=== PATIENT | female | born 1980 | race Caucasian/White ===

== ENCOUNTER 2019-06-30 13:59 | Emergency (ER) | payer MEDICAID, SELFPAY ==
[2019-06-30 14:00] VITALS: BP 106/74; PULSE 105; RESP 16; TEMP 37.4; O2SAT 95; BMI 37.0
--- NOTE | 2019-06-30 14:23 | EKG12_ITS ---
Test Reason : Blood Pressure : / mmHG Vent. Rate : 099 BPM Atrial Rate : 099 BPM P-R Int : 158 ms QRS Dur : 078 ms QT Int : 356 ms P-R-T Axes : 079 089 075 degrees QTc Int : 456 ms Normal sinus rhythm Normal ECG Confirmed by CAMRYN HODGES ([id number]), editor producer HERBERT HUMPHREY ([id number]) on 07/03/2019 3:09:03 PM Referred By: PATEL Confirmed By:CAMRYN HODGES
--- NOTE | 2019-06-30 14:23 | RAD_ITS ---
STUDY: X-RAY CHEST REASON FOR EXAM: Female, 39 years old. Chest pain x today TECHNIQUE: PA and lateral views of the chest. COMPARISON: None. FINDINGS: EKG electrodes are seen. A fine linear densities seen projected over the left hilum. The lungs are clear and expanded. There is no demonstrated pleural abnormality. Normal size heart. Normal mediastinum and jama. Normal visualized pulmonary arteries. Normal visualized aortic arch and descending thoracic aorta. There is a mild dextroscoliosis of the thoracic spine. Normal visualized ribs, clavicles, and shoulders. There is no demonstrated abnormality of the visualized soft tissue structures of the upper abdomen. RAD/Chest PA and Lateral IMPRESSION: No acute abnormality is seen. Electronically Signed: Azar Fox, at 14:53 EDT , Service support ,
[2019-06-30 14:36] LABS: Absolute Neutrophil Count 8.2 X10^3/uL (2.0-7.7); Basophil# 0.05 X10^3/uL; Basophil% 0.4 % (0-1); Eosinophil# 0.28 X10^3/uL; Eosinophils% 2.2 % (0-5); Hematocrit 35.6 % (37-47); Hemoglobin 11.6 g/dL (12.0-15.0); Lymphocyte % 24.8 % (19-41); Mean Corp Hgb Conc 32.6 g/dL (32-36); Mean Platelet Vol. 10.1 fl (6.2-12.0); Monocyte# 0.82 X10^3/uL; Monocyte% 6.5 % (0-10); NRBC Flagged by Analyzer 0 % (0-5); Neutrophil # 8.23 X10^3/uL (2.7-7.7); Neutrophil % 65.8 % (47-70); Platelet Count 309 K/mm3 (150-450); RBC Distribution Width CV 13.1 % (11.6-14.6); RBC Distribution Width SD 42.8 fl (35.1-43.9); White Blood Count 12.5 K/mm3 (4.4-11.0)
[2019-06-30 14:49] LABS: Anion Gap 4 (5-15); BUN 16 mg/dL (7-18); BUN/Creat Ratio 28.1 RATIO (10-20); Calcium,Total 8.5 mg/dL (8.5-10.1); Chloride 113 mmol/L (98-107); Creatinine, Serum 0.57 mg/dL (0.55-1.02); EST Glomerular Filtration Rate 125 mL/min (>60); Est Glom Filt Rate - Afr Amer 151 mL/min (>60); Estimated Creatinine Clearance 113.29 ml/min; Glucose 110 mg/dL (74-106); Sodium Level 144 mmol/L (136-145)
[2019-06-30 14:59] VITALS: BP 101/75; PULSE 99; RESP 21; O2SAT 98
[2019-06-30] MEDS: Aspirin 81 MG TAB.CHEW 324 MG PO (15:15)
--- NOTE | 2019-06-30 15:24 | ED.DCSUM_ITS ---
History of Present Illness Chief Complaint: Chest Pain Informant: Patient Narrative: Patient presenting for evaluation secondary to chest pain. Patient reports that over the course about the last month she has been dealing with intermittent chest pain. Patient states that it will come and go throughout the day, is a sharp tearing type sensation and seems to get worse when she changes position. Patient denies any numbness or weakness in the arms or legs. She denies any shortness of breath lightheadedness or palpitations. No injuries associated with this. She is never really had any prior episodes in the past, she denies that she has a personal or family history of aneurysm or sudden . No family history of premature cardiac disease. Patient denies any history of hypertension diabetes hyperlipidemia or any DVT or PE risk factors. She is a smoker she is never had a cardiac stress test. Past Medical History - Allergies and Home Meds Allergies/Adverse Reactions: Allergies No Known Allergies Allergy (Verified 06/30/19 14:04) Past Medical History: None Smoking Status: Current every day smoker Review of Systems All systems negative except as indicated General: Denies: Chills, Fever, Sweats Eyes: Denies: Visual changes - bilaterally, Diplopia ENT: Denies: Rhinorrhea, Sore throat Cardiovascular: Reports: Chest pain Respiratory: Denies: Dyspnea, Cough, Dyspnea on exertion Gastrointestinal: Denies: Abdominal pain, Nausea, Vomiting, Diarrhea, Melena, Hematochezia Genitourinary: Denies: Dysuria, Hematuria, Frequency Musculoskeletal: Denies: Back pain, Extremity Pain Skin: Denies: Rash, Wounds Neurological: Denies: Headache, Weakness, Numbness Physical Exam Vital Signs/Narrative: Vital Signs Temp Pulse Resp BP Pulse Ox 06/30/19 14:59 99 21 H 101/75 98 06/30/19 14:00 99.4 F H 105 H 16 106/74 95 Inital Vital Signs reviewed: Yes General: Well nourished, Well developed, No Acute Distress Head: Normocephalic, Atraumatic Eyes: Perrl, EOMI ENT: Moist mucous membranes, No rhinorrhea Neck: Supple, Nontender Cardiovascular: Regular rate, Regular rhythm, No murmurs Respiratory: No distress, CTA bilaterally, Chest nontender Abdomen: Soft, Nontender, Nondistended, Normal bowel sounds Back: Nontender, Normal Inspection Extremities: Nontender, No edema, - - 2+ radial pulses bilaterally symmetric. 2+ PT pulses bilaterally symmetric. Skin: Normal color, No rash Neurological: Alert, Oriented x3, Cranial nerves II-XII grossly intact, Normal Strength, Normal Sensation Psychological: Normal affect, Normal Mood Diagnostic/Tx/Re-eval Clinical Impression(s) from Imaging Studies Chest X-Ray 06/30/19 14:23 IMPRESSION: No acute abnormality is seen. Electronically Signed: Azar Fox, at 14:53 EDT , Service support , Laboratory Data 06/30/19 06/30/19 14:05 14:05 WBC 12.5 H RBC 4.00 L Hgb 11.6 L Hct 35.6 L MCV 89.0 MCH 29.0 MCHC 32.6 RDW Std Deviation 42.8 RDW Coeff of Jenni 13.1 Plt Count 309 MPV 10.1 Immature Gran % (Auto) 0.300 Neut % (Auto) 65.8 Lymph % (Auto) 24.8 Carolina % (Auto) 6.5 Eos % (Auto) 2.2 Baso % (Auto) 0.4 Absolute Neuts (auto) 8.2 H Absolute Lymphs (auto) 3.10 Nucleated RBC % 0 Sodium 144 Potassium 4.0 Chloride 113 H Carbon Dioxide 27.0 Anion Gap 4 L BUN 16 Creatinine 0.57 Estim Creat Clear Calc 113.29 Est GFR (MDRD) Af Amer 151 Est GFR (MDRD) Non-Af 125 BUN/Creatinine Ratio 28.1 H Glucose 110 H Calcium 8.5 Troponin I < 0.015 - EKG Initial EKG Interpretation: - - Sinus rhythm at [address] segments normal T waves normal AK and QTc intervals no evidence of WPW or Brugada morphology no acute ischemia or arrhythmia - Medical Decision Making Patient presented secondary to chest pain. Differential considerations included but are not limited to cardiac disease, aortic dissection, aneurysm, PE, pneumonia. Work-up including CBC chemistry troponin chest x-ray and EKG are all found to be unremarkable. Patient's pain is very intermittent and has been going on for a month it seems unlikely that this is from dissection or from aneurysm I do not feel that any advanced imaging is indicated. Patient is PER C- there is no indication for work-up for PE. Patient's heart score is 2 at a maximum and she does not require further admission for this. Patient's pain likely is musculoskeletal she will be treated with NSAIDs she will follow-up with primary care on the at her previously scheduled appointment. ED Disposition - Plan for ED Patient: Disposition: Home or Assisted Living Diagnosis: Musculoskeletal chest pain Instructions: ED Chest Pain NonCardiac Prescriptions: Naproxen [Naprosyn] 500 mg PO BID PRN #20 tab Prescription Printed Referrals: Jessica Keller [NON-STAFF] - 1 Week
[2019-06-30 15:41] VITALS: BP 101/75; PULSE 88; RESP 16; O2SAT 100
--- NOTE | 2019-06-30 15:41 | ED.RN ---
IV DC'ED, CATHETER INTACT, SMALL GAUZE DRESSING PLACED. DISCHARGE INSTRUCTIONS GIVEN TO AND REVIEWED WITH PATIENT, PATIENT DENIES QUESTIONS OR CONCERNS AND VOICES UNDERSTANDING OF DISCHARGE INSTRUCTIONS. PT AMBULATES OUT OF ROOM WITHOUT DIFFICULTY.
== END 2019-06-30 15:42 | disposition home or self-care (01) ==
LOC: ED 15:29
PROVIDERS: Emergency Provider Emergency Medicine; PCP Nurse Practitioner Family
DX: R07.89 Other chest pain (principal); F17.200 Nicotine dependence, unspecified, uncomplicated
CPT/HCPCS: 71046; 80048; 84484; 85025; 93005; 99285; A4216

== ENCOUNTER → 2019-07-11 10:43 | Outpatient (CLI) | payer MEDICAID, SELFPAY ==
[2019-06-30 14:00] VITALS: BMI 37.0
--- NOTE | 2019-07-11 10:49 | BI_ITS ---
MAMMOGRAPHY - BILATERAL SCREENING REASON FOR EXAM: Female, 39 years old. Routine annual screening examination. PERTINENT HISTORY: Aunts with breast cancer. TECHNIQUE: Digital bilateral breast ken (3D mammographic acquisition) in the CC and MLO projections. 2-D mediolateral oblique (MLO) and craniocaudad (CC) views of both breasts were obtained. CAD: Full Field Digital Mammography with Computer Added Detection was performed. COMPARISON: No comparison mammograms available at this time. If any prior films become available, an addendum to this report can be generated. FINDINGS: Breast Composition: The breasts are heterogeneously dense, which may obscure small masses. There are no dominant masses or suspicious calcifications. Small benign-appearing bilateral axillary lymph nodes. No other significant abnormalities are identified. BI/SCREEN MAMM (CAD) W/KEN BILAT IMPRESSION: Negative screening mammogram. Yearly followup mammogram recommended. (A) ASSESSMENT CATEGORY: BIRADS Category 2: Benign. A letter regarding these results will be sent to the patient by the facility within 30 days. Approximately 10% of breast cancers are not detected by mammography. A normal mammogram should not delay biopsy of a clinically suspicious abnormality. [id number] Electronically Signed: Azar Fox, at 14:52 EDT , Service support ,
== END ==
DX: Z12.31 Encounter for screening mammogram for malignant neoplasm of breast (principal)
CPT/HCPCS: 77063; 77067

== ENCOUNTER 2019-09-13 19:34 | Emergency (ER) | payer MEDICAID, SELFPAY ==
[2019-09-13 19:36] VITALS: BP 101/68; PULSE 93; RESP 17; TEMP 36.3; O2SAT 97; BMI 39.5
--- NOTE | 2019-09-13 20:30 | ED.VIS.GEN ---
History of Present Illness Chief Complaint: Cough Informant: Patient Onset: Weeks Context: Gradual Onset Timing: Waxes and wanes - 2 weeks Current Severity: Mild Maximum Severity: Moderate Narrative: Patient presents with right ear fullness and congestion along with cough for the past 2 weeks. She denies fever or chills. She is not coughing anything up. She does report having a bad tooth. - Past Medical History (1) Depression Status: Chronic Past Medical History - Allergies and Home Meds Allergies/Adverse Reactions: Allergies No Known Allergies Allergy (Verified 09/13/19 19:34) Primary Care Physician: Jessica Kumar [Primary Care Provider] - Prior records reviewed: Yes Smoking Status: Current every day smoker Review of Systems General: Denies: Chills, Fever Eyes: Denies: Visual changes - bilaterally ENT: Reports: Bilateral ear pain, Right ear pain Cardiovascular: Denies: Chest pain Respiratory: Reports: Cough. Denies: Dyspnea, Sputum Gastrointestinal: Denies: Abdominal pain, Nausea, Vomiting, Diarrhea Skin: Denies: Rash Neurological: Denies: Headache Hematologic: Denies: Easy bruising, Easy bleeding Allergy: Denies: Uticaria Physical Exam Vital Signs/Narrative: Vital Signs Temp Pulse Resp BP Pulse Ox 09/13/19 19:36 97.3 F L 93 17 101/68 97 Inital Vital Signs reviewed: Yes General: Well nourished, Well developed Head: Normocephalic ENT: Moist mucous membranes, TM's clear, - - Right maxillary second molar is broken with mild surrounding gum edema.. Negative for: Sinus tenderness Neck: Supple Cardiovascular: Regular rate, Regular rhythm Respiratory: No distress, CTA bilaterally Abdomen: Soft, Nontender Extremities: Nontender Skin: Normal color Neurological: Alert, Oriented x3 Psychological: Normal affect Diagnostic/Tx/Re-eval 2 view chest x-ray per my review reveals no focal infiltrate. - Medical Decision Making Patient will be treated with Alfredo-[facility] K for her dental infection. A list of dental clinics in the area is provided for her. ED Disposition - Plan for ED Patient: Disposition: Home or Assisted Living Diagnosis: Odontalgia Instructions: ED Tooth Pain Prescriptions: Penicillin V Potassium 500 mg PO 4X/DAY #40 tab Transmission Status: Pending to [facility] [place] - [id number] Referrals: Jessica Kumar [Primary Care Provider] - As Needed Additional Instructions: Dental list provided.
--- NOTE | 2019-09-13 21:05 | RAD_ITS ---
STUDY: CHEST, 2 VIEWS REASON FOR EXAM: Fever and cough, old. TECHNIQUE: PA and lateral views COMPARISON: 06/30/2019 FINDINGS: The lungs are clear and expanded. There is no demonstrated pleural abnormality. Normal size heart. Normal mediastinum and jama. Normal visualized pulmonary arteries. Normal visualized aortic arch and descending thoracic aorta. There is a mild dextroscoliosis of the thoracic spine. Normal visualized ribs, clavicles, and shoulders. There is no demonstrated abnormality of the visualized soft tissue structures of the upper abdomen. RAD/Chest PA and Lateral IMPRESSION: No acute pulmonary process, no interval change Electronically Signed: Daniel Morales MD at 21:46 EDT , Service support ,
[2019-09-13] MEDS: Penicillin Vk 250 MG Tablet 500 MG PO (21:42)
[2019-09-13 21:43] VITALS: BP 110/72; PULSE 76; RESP 16; O2SAT 97
== END 2019-09-13 21:44 | disposition home or self-care (01) ==
PROVIDERS: Emergency Provider Emergency Medicine
DX: K08.89 Other specified disorders of teeth and supporting structures (principal); F17.200 Nicotine dependence, unspecified, uncomplicated; F32.9 Major depressive disorder, single episode, unspecified
CPT/HCPCS: 71046; 99282

== ENCOUNTER → 2019-09-15 13:51 | Outpatient (CLI) | payer MEDICAID, SELFPAY ==
[2019-09-13 19:36] VITALS: BMI 39.5
--- NOTE | 2019-09-15 13:54 | RAD_ITS ---
STUDY: X-RAY - RIGHT KNEE REASON FOR EXAM: Female, 39 years old. RIGHT KNEE PAIN x1 YR, NKI TECHNIQUE: 3 view(s) of the knee. COMPARISON: None. FINDINGS: Normal visualized distal femur. Normal visualized proximal tibia and fibula. Normal proximal tibiofibular articulation. Normal medial femorotibial compartment. Normal lateral femorotibial compartment. Normal patellofemoral articulation. The soft tissue structures are unremarkable. RAD/Knee 3 Views IMPRESSION: Normal x-ray examination of the knee. Electronically Signed: Daniel Morales MD at 14:16 EDT , Service support ,
== END ==
DX: M25.561 Pain in right knee (principal)
CPT/HCPCS: 73562

== ENCOUNTER 2019-09-29 20:33 | Emergency (ER) | payer MEDICAID, SELFPAY ==
[2019-09-29 20:35] VITALS: BP 104/70; PULSE 88; RESP 16; TEMP 36.4; O2SAT 97; BMI 38.9
--- NOTE | 2019-09-29 21:24 | ED.DCSUM_ITS ---
History of Present Illness Chief Complaint: Lower Extremity Injury Informant: Patient Occurred: Days - 2 Mechanism/Context: Fall - slipped in wet grass, fell to both knees Context: Sudden Onset Timing: Continuous Quality of Pain: Aching Location: lateral right knee, and into popliteal area/calf Current Severity: Mild Maximum Severity: Severe Worsened by: walking, bending knee Relieved by: remaining still Associated Symptoms: Negative for: Parasthesia, Weakness, Loss of Funtion Narrative: Patient has been able to walk. She states she fell to both of her knees, the left one does not hurt anymore, but the right one has been persistent. She denies any other injuries. - Past Medical History (1) Depression Status: Chronic Past Medical History - Allergies and Home Meds Allergies/Adverse Reactions: Allergies No Known Allergies Allergy (Verified 09/29/19 20:36) Primary Care Physician: Jessica Kumar [Primary Care Provider] - Lives: Roommate Smoking Status: Current every day smoker Review of Systems General: Denies: Chills, Fever, Sweats Musculoskeletal: Reports: Extremity Pain. Denies: Neck pain, Back pain, Swe lling Neurological: Denies: Weakness, Parasthesia, Numbness Physical Exam Vital Signs/Narrative: Vital Signs Temp Pulse Resp BP Pulse Ox 09/29/19 20:35 97.5 F L 88 16 104/70 97 Inital Vital Signs reviewed: Yes - Extremity Exam Right Knee: Limited ROM - At extremes of flexion. Extensor mechanism intact. All ligaments stable with short endpoints and no significant pain on stressing including negative Yudi and posterior drawer. She is diffusely tender throughout the knee, except not on the patella. This includes the medial joint line, lateral joint line, tibial tuberosity, patellar ligament. Left Knee: Negative for: Contusion, Limited ROM General: Well nourished, Well developed, Obese, - - NAD Head: Normocephalic, Atraumatic Skin: Normal color, No rash, No Trauma - skin intact RLE Neurological: Alert, Oriented x3, Cranial nerves II-XII grossly intact, Normal Strength, Normal Sensation, Normal Gait Psychological: Normal affect, Normal Mood Diagnostic/Tx/Re-eval - Medical Decision Making My interpretation, 4 view x-ray series of the right knee shows no acute fracture or major effusion. Patient is reassured, given Gerardo wrap, naproxen as well as a prescription, and advised to follow-up with orthopedics if after a week of rest, ice, elevation, and NSAIDs, she is still having issues with it. She is comfortable with that plan. ED Disposition - Plan for ED Patient: Disposition: Home or Assisted Living Diagnosis: Right knee injury Instructions: ED Sprain Knee, ED Bandage Elastic Wrap Prescriptions: Naproxen [Naprosyn] 500 mg PO BID PRN #20 tab Prescription Printed Referrals: Tejinder Yoon DO [STAFF PHYSICIAN] - 1 Week if not improving
--- NOTE | 2019-09-29 21:56 | RAD_ITS ---
HISTORY: FELL 2-3 DAYS AGO. COMPLAINING OF RIGHT KNEE PAIN. ADDITIONAL HISTORY: None provided. EXAMINATION/TECHNIQUE: XR Knee Complete 4 Views or More Right Number of images including paperwork: 4 COMPARISON: 09/15/2019 FINDINGS: BONES: No acute fracture. JOINTS: No subluxation. Small right knee joint effusion. SOFT TISSUES: No distinct foreign body. Soft tissue calcifications noted anteromedially. RAD/Knee 4 or More Views IMPRESSION: No acute osseous abnormality. Small right knee joint effusion. at 2225 Reported and signed by: Rekha Lunsford MD Electronically Signed: Rekha Lunsford MD at 22:25 EDT Tel , Service support ,
[2019-09-29] MEDS: Naproxen 500 MG Tablet PO (22:34)
== END 2019-09-29 22:34 | disposition home or self-care (01) ==
PROVIDERS: Emergency Provider Emergency Medicine; Referring Provider Nurse Practitioner Family
DX: S89.91XA Unspecified injury of right lower leg, initial encounter (principal); F17.200 Nicotine dependence, unspecified, uncomplicated; F32.9 Major depressive disorder, single episode, unspecified; W01.0XXA Fall on same level from slipping, tripping and stumbling without subsequent striking against object, initial encounter
CPT/HCPCS: 73564; 99283

== ENCOUNTER → 2020-01-08 16:46 | Outpatient (CLI) | payer MEDICAID, SELFPAY ==
[2019-10-20 10:22] VITALS: BMI 38.9
--- NOTE | 2020-01-08 16:47 | MRI_ITS ---
HISTORY: Right knee injury. Internal derangement. Swelling and instability MRI EXAMINATION OF THERight KNEE COMPARISON: Radiographs of the right on September 29, 2019 TECHNIQUE: Sagittal proton density, fat-suppressed T2, coronal proton-density 8. Thin coronal T2 views, coronal fat-suppressed proton density and axial fat-suppressed T2 # of images including paperwork:199 FINDINGS: Bones: No acute fracture. No significant marrow edema. Ligaments and tendons: The anterior and posterior cruciate ligaments are intact The iliotibial band, lateral collateral ligament and biceps femoris tendon are intact The medial collateral ligament is intact The popliteus tendon appears intact Extensor mechanism: The quadriceps tendon and the patellar tendon and medial and lateral retinaculum are intact Knee joint: Small joint effusion. There is also a small popliteal cyst and fluid within the semimembranosus tibial collateral ligament bursa. Medial compartment: No evidence of a meniscal tear. There is fraying of the articular cartilage at the lateral weightbearing portion medial femoral condyle seen on coronal image 14 series 9 extending approximately 6 mm transverse and approximately 3 mm AP seen on sagittal image 16 series 6 Lateral compartment: there may be a tiny radial tear at the free edge seen on sagittal image 9 and coronal image 16 series 9. Addition there is abnormal signal is seen extending from the anterior root ligament attachment to middle one third. Suspect intrameniscal cyst seen on sagittal image 4 series 6 in this region. I suspect there is a small vertical component extending to the inferior articular surface and is seen on coronal image 14 series 9. Patellofemoral articulation: There is lateral patellar subluxation of approximately 6 mm. Narrowing of the lateral patellofemoral joint with minimal fraying of the central lateral articular cartilage of the patella the trochlear articular cartilage is fissured at the sulcus seen on image 15 series 30. The articular cartilage is intact MRI/Lower Ext Joint Only (Routine) IMPRESSION: Lateral meniscus tear involving the middle one third of the lateral meniscus with intrameniscal cyst as discussed. There is also a small radial tear at the free edge of the middle one third. Articular cartilage loss is seen involving the lateral aspect weightbearing portion of the medial femoral condyle Lateral patellar subluxation and narrowing of the lateral patellofemoral joint with articular fraying and fissuring as discussed Small joint effusion Small popliteal cyst Small amount of fluid within the semimembranosus tibial collateral ligament bursa at 2327 Reported and signed by: Anna Vallejo DO Electronically Signed: Anna Vallejo DO at 23:26 EST Tel , Service support ,
== END ==
PROVIDERS: Referring Provider Orthopaedic Surgery; Visit Provider Orthopaedic Surgery
DX: S83.281A Other tear of lateral meniscus, current injury, right knee, initial encounter (principal); M23.91 Unspecified internal derangement of right knee
CPT/HCPCS: 73721

== ENCOUNTER → 2020-01-19 11:00 | Outpatient (CLI) | payer MEDICAID, SELFPAY ==
[2019-10-20 10:22] VITALS: BMI 38.9
== END ==
PROVIDERS: Referring Provider Orthopaedic Surgery; Visit Provider Orthopaedic Surgery
DX: Z20.828 Contact with and (suspected) exposure to other viral communicable diseases (principal)
CPT/HCPCS: 87426; C9803

== ENCOUNTER 2020-10-12 18:51 | Emergency (ER) | payer MEDICAID, SELFPAY ==
[2019-10-20 10:22] VITALS: BMI 38.9
[2020-10-12 18:52] VITALS: BP 134/94; PULSE 81; RESP 18; TEMP 36.7; O2SAT 100; BMI 34.8
--- NOTE | 2020-10-12 19:38 | EDS_ITS ---
HPI HPI - Female History of Present Illness Chief Complaint: Female C/O Informant: patient Narrative Narrative: 10 days foul smelling vaginal discharge. No bleeding. Missed her last menstrual period supposed be 7 days ago. Sexually active with her significant other last time was 3 weeks ago. STD when she was 12. No fevers. No abdominal pain. States she had last Pap smear this past June at [facility]. Prior similar symptoms: Yes PFSH PFSH Medical History Anxiety Hx of hepatitis C Home Medications fluoxetine 20 mg PO DAILY 09/13/19 [History Last Taken Unknown] quetiapine 50 mg PO QHS 09/13/19 [History Last Taken Unknown] metronidazole [Flagyl] 500 mg PO Q12H #13 tab 10/12/20 [Rx Last Taken Unknown] Allergy/AdvReac Type Severity Reaction Status Date / Time No Known Allergies Allergy Verified 10/12/20 18:55 Social History Smoking Status: Current every day smoker tobacco type: cigarettes ROS ROS ED Constitutional Constitutional ED: Denies chills, fever(s) or sweats Eyes Eyes: Denies change in vision ENT ENT ED: Denies dysphagia or sore throat Cardiovascular Cardiovascular: Denies chest pain, leg edema, palpitations or racing heartbeat Respiratory/Chest Respiratory/Chest: Denies cough, dyspnea or dyspnea on exertion Gastrointestinal Gastrointestinal: Denies abdominal pain, diarrhea, nausea or vomiting Genitourinary Genitourinary ED: Reports other Details: Vaginal discharge ; Denies dysuria, hematuria or urinary frequency Musculoskeletal Musculoskeletal: Denies back pain, extremity pain or neck pain Integumentary Denies rash or wounds Neurologic Neurologic: Denies headache(s), paresthesias or weakness EXAM Physical Exam Const Vital Signs: 10/12/20 18:52 Temperature 98.1 F Temperature Source Temporal Pulse Rate 81 Respiratory Rate 18 Blood Pressure 134/94 H Blood Pressure Mean 107 Pulse Ox 100 Oxygen Delivery Method Room Air Positive well nourished and well developed General Appearance ED: well developed and NAD HEENT Reports moist mucous membranes normocephalic and atraumatic Eyes PERRL, EOMs intact bilaterally and conjunctivae normal General Eye ED: Yes normal appearance of both eyes Neck no lymphadenopathy and supple General: Negative for tenderness Chest Wall Chest: Negative for tenderness Resp normal respiratory effort and normal air movement Effort and Inspection: symmetric chest movement; Negative for respiratory distress Cardio regular rate, regular rhythm and no murmurs Peripheral Pulses: pulses 2+ throughout GI normal to inspection, nondistended, normoactive bowel sounds and non-tender Palpation: Negative for guarding or rebound tenderness present Narrative: Nursing present normal external exam. Speculum exam notes white discharge. There is no bleeding. Back/Spine no CVA tenderness and no thoracic nor lumbar tenderness Extremity normal to inspection General Extremety ED: Negative for edema or tenderness General Extremity: Negative for edema Neuro oriented x3 and no sensory deficits noted Sensorium / Orientation: awake and alert Skin no rashes or lesions noted and no wounds MDM MDM MDM Narrative Medical decision making narrative: Vitals stable nontoxic nontender abdomen. Wet prep negative for Trichomonas. GC chlamydia also returned negative. hCG negative. Will start Flagyl for coverage for concern for bacterial vaginosis. Patient will avoid alcohol products. All questions were answered.. Lab Data Attestation: I reviewed the patient's lab results. Labs: Laboratory Results - last 24 hr 10/12/20 10/12/20 19:49 19:49 Urine Test Negative Chlam trachomat DNA PCR Negative N.gonorrhoeae DNA (PCR) Negative Discharge Plan Triage Chief Complaint: Female C/O ED Provider: Julian Wolf Dx/Rx/DC Orders Clinical Impression: Bacterial vaginosis Instructions: Bacterial Vaginosis Prescriptions: New metronidazole [Flagyl] 500 mg tablet 500 mg PO Q12H Qty: 13 RF: 0 No Action fluoxetine 20 MG capsule 20 mg PO DAILY RF: 0 quetiapine 50 MG tablet 50 mg PO QHS RF: 0 Primary Care Provider: Sonam Martinez Referrals: Sonam Martinez, [employer] [Primary Care Provider] - 1 Week Disposition Disposition: Home, Self Care
[2020-10-12 20:01] LABS: Internal QC Validated? YES +Cl - CLEAR BKGD; Pregnancy, Urine Negative Negative
[2020-10-12 21:42] LABS: Chlamydia Trachomatis by PCR Negative (Negative); Neisserai gonorrhoeae by PCR Negative (Negative); Probe Check PASS; Sample Adequacy Control PASS; Specimen Processing Control PASS
[2020-10-12 22:34] VITALS: BP 137/99; PULSE 95; RESP 15; O2SAT 98
[2020-10-12] MEDS: metroNIDAZOLE 500 MG Tablet PO (22:41)
[2020-10-12 22:47] VITALS: BP 132/82; PULSE 79; RESP 15; O2SAT 99
== END 2020-10-12 22:48 | disposition home or self-care (01) ==
PROVIDERS: Emergency Provider Emergency Medicine; PCP Nurse Practitioner Adult Health
DX: N76.0 Acute vaginitis (principal); B96.89 Other specified bacterial agents as the cause of diseases classified elsewhere; Z86.19 Personal history of other infectious and parasitic diseases; F41.9 Anxiety disorder, unspecified; Z79.899 Other long term (current) drug therapy; F17.210 Nicotine dependence, cigarettes, uncomplicated
CPT/HCPCS: 81025; 87210; 87491; 87591; 99283

== ENCOUNTER → 2021-01-03 13:26 | Outpatient (CLI) | payer MEDICAID, SELFPAY ==
[2021-01-03 14:24] LABS: Absolute Lymphocyte Count 2.85 X10^3/uL (0.83-4.51); Absolute Neutrophil Count 9.1 X10^3/uL (2.0-7.7); Basophil# 0.05 X10^3/uL; Basophil% 0.4 % (0-1); Eosinophil# 0.27 X10^3/uL; Eosinophils% 2.1 % (0-5); Hemoglobin 12.9 g/dL (12.0-15.0); Lymphocyte # 2.85 X10^3/ul (0.83-4.51); Lymphocyte % 22.1 % (19-41); Mean Corp Hgb Conc 33.1 g/dL (32-36); Mean Corpuscular Hgb 29.3 pg (27.0-32.0); Mean Corpuscular Volume 88.6 fL (81-99); Mean Platelet Vol. 10.1 fl (6.2-12.0); Monocyte# 0.58 X10^3/uL; Monocyte% 4.5 % (0-10); NRBC Flagged by Analyzer 0 % (0-5); Neutrophil # 9.11 X10^3/uL (2.7-7.7); Neutrophil % 70.6 % (47-70); Platelet Count 323 K/mm3 (150-450); RBC Distribution Width CV 12.9 % (11.6-14.6); RBC Distribution Width SD 42.4 fl (35.1-43.9); White Blood Count 12.9 K/mm3 (4.4-11.0)
[2021-01-03 14:58] LABS: AST(SGOT) 18 U/L (15-37); Alanine Aminotransfer ALT/SGPT 22 U/L (13-56); Albumin, Serum 3.6 g/dL (3.2-5.0); Alkaline Phosphatase 90 U/L (45-117); Anion Gap 5 (5-15); BUN 11 mg/dL (7-18); Calcium,Total 9.2 mg/dL (8.5-10.1); Chloride 104 mmol/L (98-107); Cholesterol 155 mg/dL (200); Creatinine, Serum 0.65 mg/dL (0.55-1.02); EST Glomerular Filtration Rate 107 mL/min (>60); Est Glom Filt Rate - Afr Amer 129 mL/min (>60); Globulin 3.5 g/dL (2.2-4.2); Glucose 98 mg/dL (74-106); High Density Lipoprotein 73 mg/dL; Potassium 4.2 mmol/L (3.5-5.1); Protein, Total 7.1 g/dL (6.4-8.2); Sodium Level 136 mmol/L (136-145); Triglycerides 74 mg/dL; Very Low Density Lipoprotein 15 mg/dL (5-40)
[2021-01-03 15:16] LABS: HIV - WCH Non-Reactive (Nonreactive); Syphilis Antibodies Non-reactive
== END ==
PROVIDERS: PCP Nurse Practitioner Adult Health; Visit Provider Nurse Practitioner Adult Health
DX: F31.9 Bipolar disorder, unspecified (principal)
CPT/HCPCS: 36415; 80053; 80061; 84443; 85025; 86703; 86780

== ENCOUNTER 2021-01-23 16:12 | Emergency (ER) | payer MEDICAID, SELFPAY ==
[2021-01-23 16:13] VITALS: BP 121/87; PULSE 110; RESP 16; TEMP 36.2; O2SAT 97; BMI 37.8
--- NOTE | 2021-01-23 16:33 | EX.ED.UPPERE ---
HPI History of Present Illness Chief Complaint: Upper Extremity Injury Narrative Narrative: Patient presents with right forearm pain for couple days. She woke up with this pain. She was not sleeping on the arm. Nothing seemed to bring this on. No new activities, jobs, workouts. No injuries. No injections or procedures to the area. She never had this before. Pain is worse with movement. Pain is severe at its most intense. Better with rest. Concern for swelling to the area. No other associated symptoms. PFSH PFSH Medical History Anxiety Hx of hepatitis C Home Medications fluoxetine 20 mg PO DAILY 09/13/19 [History Last Taken Unknown] quetiapine 50 mg PO QHS 09/13/19 [History Last Taken Unknown] metronidazole [Flagyl] 500 mg PO Q12H #13 tab 10/12/20 [Rx Last Taken Unknown] Allergy/AdvReac Type Severity Reaction Status Date / Time No Known Allergies Allergy Verified 01/23/21 16:14 Social History Smoking Status: Current every day smoker tobacco type: cigarettes ROS ROS ED Constitutional Constitutional ED: Denies fever(s) or subjective Eyes Eyes: Denies change in vision ENT ENT ED: Denies ear pain Cardiovascular Cardiovascular: Denies chest pain, palpitations or racing heartbeat Respiratory/Chest Respiratory/Chest: Denies cough or dyspnea Gastrointestinal Gastrointestinal: Denies abdominal pain Genitourinary Genitourinary ED: Denies dysuria Musculoskeletal Musculoskeletal: Reports myalgias; Denies back pain or neck pain Integumentary Denies abscess, Abrasions or rash Neurologic Neurologic: Denies headache(s), paresthesias or weakness Psychiatric Psychiatric: Denies depression Endocrine Endocrinology: Denies polyuria Hematologic/Lymphatic Hematologic/Lymphatic: Denies easy bleeding or easy bruising Allergic/Immunologic Allergic/Immunologic ED: Denies urticaria EXAM Physical Exam Const Vital Signs: 01/23/21 16:13 Temperature 97.2 F L Temperature Source Temporal Pulse Rate 110 H Respiratory Rate 16 Blood Pressure 121/87 H Blood Pressure Mean 98 Pulse Ox 97 Oxygen Delivery Method Room Air Positive well nourished and well developed General Appearance ED: well developed HEENT normocephalic and atraumatic Eyes PERRL Neck full ROM and supple Resp normal respiratory effort Extremity normal to inspection and full ROM Extremity Narrative: Right forearm shows pain over the brachial radialis with palpation. Compartments are soft. Range of motion is intact. Normal movement. No paresthesias noted. Pulses strong and equal. Capillary refill normal. Overlying skin normal. Neuro oriented x3, no focal motor deficits and no sensory deficits noted Sensorium / Orientation: alert Psych mental status grossly normal Skin Lesions: no lesions Rashes: no rashes Trauma: no lacerations or abrasions MDM MDM MDM Narrative Medical decision making narrative: Patient has muscle pain. There is nothing to suggest compartment syndrome, infection. She is neurovascular intact distally. X-rays are unremarkable. Skin appears normal. We will treat this symptomatically. Sling as needed. Precautions regarding sling use were given. Use only for pain as needed. Try to limit the use. Use anti-inflammatories. Rest, ice, elevate. Outpatient follow-up with orthopedics. Return for any new or worsening issues right away. X-rays were reviewed by the radiologist and myself and showed no acute abnormalities. No fracture or dislocation. Discharge Plan Triage Chief Complaint: Upper Extremity Injury ED Provider: Dennis Mejia Dx/Rx/DC Orders Instructions: ED RICE Prescriptions: No Action fluoxetine 20 MG capsule 20 mg PO DAILY RF: 0 quetiapine 50 MG tablet 50 mg PO QHS RF: 0 metronidazole [Flagyl] 500 mg tablet 500 mg PO Q12H Qty: 13 RF: 0 Primary Care Provider: Sonam Martinez Referrals: Asif Valdez DO [STAFF PHYSICIAN] - Disposition Disposition: Home, Self Care
--- NOTE | 2021-01-23 16:35 | RAD_ITS ---
STUDY: X-RAY - RIGHT RADIUS AND ULNA REASON FOR EXAM: Female, 40 years old. RIGHT FOREARM PAIN SINCE SUNDAY, DENIES INJURY TECHNIQUE: 2 view(s) of the forearm. COMPARISON: None. FINDINGS: There is no demonstrated soft tissue swelling. Normal visualized radius. Normal visualized ulna. There is no demonstrated acute fracture. RAD/Forearm 2 Views IMPRESSION: Normal x-ray examination of the radius and ulna. Electronically Signed: Americo Anderson MD at 17:02 EST , Service support ,
[2021-01-23] MEDS: Naproxen 500 MG Tablet PO (17:21)
== END 2021-01-23 17:21 | disposition home or self-care (01) ==
PROVIDERS: Emergency Provider Emergency Medicine; PCP Nurse Practitioner Adult Health
DX: M79.631 Pain in right forearm (principal); F17.210 Nicotine dependence, cigarettes, uncomplicated
CPT/HCPCS: 73090; 99283

== ENCOUNTER 2021-05-08 17:48 | Emergency (ER) | payer MEDICAID, SELFPAY ==
[2021-05-08 17:49] VITALS: BP 104/66; PULSE 97; RESP 97; TEMP 36.7; O2SAT 99; BMI 37.7
--- NOTE | 2021-05-08 18:03 | ED.VIS.BACK ---
HPI History of Present Illness Chief Complaint: Back Informant: patient Onset/Context/Timing Onset: Days (4) Context: - (Since woke up 4 days ago) Timing: Continuous Quality: Aching and - (And stiff/spasm) Location: Lumbar (Right side without radiation into lower extremities or perineum) Current Severity: Moderate Maximum Severity: Severe Worsened by: improves with Movement, Ambulation and Bending Relieved by: Remaining Still and - (States she tried a warm bath with Epsom salt and a UV tanning bed, neither of which helped her pain.) Associated Symptoms Associated Symptoms: Negative for Numbness, Tingling, Radiation to Right Leg, Radiation to Left Leg, Abdominal Pain, Dysuria, Unable to Ambulate, Urinary Retention, Urinary Incontinence, Constipation and Fecal Incontinence Narrative Narrative: Patient has a history of back pain for the past 10 years and her lower back nonlateralizing since my epidural, without sciatica symptoms, just mild discomfort that she will usually tolerates and deals with. This is different, she woke up with it several days ago, it is right side and under her ribs a little bit into the right flank, but it is sensitive to movements which make it worse. She denies any urinary symptoms. There is no colicky nature or abdominal discomfort. 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 [facility] Medical History Anxiety Hx of hepatitis C Home Medications cyclobenzaprine 10 mg PO TID PRN #20 tablet 05/08/21 [Rx Last Taken Unknown] naproxen 500 mg PO BID PRN #20 tab 05/08/21 [Rx Last Taken Unknown] Allergy/AdvReac Type Severity Reaction Status Date / Time No Known Allergies Allergy Verified 05/08/21 17:49 Social History Smoking Status: Current every day smoker tobacco type: cigarettes ROS ROS ED Constitutional Constitutional ED: Denies chills or fever(s) Gastrointestinal Gastrointestinal: Denies abdominal pain, constipation, fecal incontinence, nausea or vomiting Genitourinary Genitourinary ED: Reports other Details: no urinary retention ; Denies abdominal discomfort or urinary incontinence Musculoskeletal Musculoskeletal: Reports as per HPI and back pain; Denies neck pain Integumentary Denies rash or wounds Neurologic Neurologic: Denies headache(s), paresthesias or weakness EXAM Physical Exam Const Vital Signs: 05/08/21 17:49 Temperature 98.1 F Temperature Source Temporal Pulse Rate 97 Respiratory Rate 97 H Blood Pressure 104/66 Blood Pressure Mean 78 Pulse Ox 99 Oxygen Delivery Method Room Air Positive well nourished and well developed General Appearance ED: well developed and NAD HEENT Negative for trauma or tenderness Eyes PERRL and EOMs intact bilaterally Neck full ROM and supple GI normal to inspection, nondistended, normoactive bowel sounds, soft to palpation and non-tender Back/Spine normal to inspection Lumbar Spine / Lower Back: ROM limited, paraspinal muscle tenderness right, paraspinal muscle spasm right and straight leg raise negative bilaterally Extremity normal to inspection, full ROM and no pedal edema Neuro oriented x3 and no sensory deficits noted Sensorium / Orientation: alert Motor Exam: strength 5/5 throughout and clonus absent Deep Tendon Reflexes: Rt Patellar (L4): 2+, Lt Patellar (L4): 2+, Rt Ankle (S1): 2+ and Lt Ankle (S1): 2+ Deep Tendon Reflexes Back: Rt Patellar (L4): 2+, Lt Patellar (L4): 2+, Rt Ankle (S1): 2+ and Lt Ankle (S1): 2+ Plantar Reflex: Downgoing: bilateral Psych mental status grossly normal and thought process normal Skin no rashes or lesions noted and no wounds MDM MDM MDM Narrative Medical decision making narrative: Suspect musculoskeletal pain based on her exam. She is no urinary symptoms to suggest this is renal in etiology especially with her having muscle spasms making it worse when she does movements using the muscle groups in her low back. She was treated with Toradol and Norflex and observed for a little while, she felt much better and able to get around easier without any apparent discomfort. She is comfortable going home with the prescriptions, given Naprosyn and Flexeril and advised to follow-up or return if worse. She is comfortable with that plan. Discharge Plan Triage Chief Complaint: Back ED Provider: Vinnie Cottrell Dx/Rx/DC Orders Clinical Impression: Musculoskeletal back pain Instructions: ED Back Pain (Acute or Chronic) Prescriptions: New cyclobenzaprine [cyclobenzaprine] 10 MG tablet 10 mg PO TID PRN (Reason: Muscle Spasm) Qty: 20 RF: 0 naproxen 500 MG tablet 500 mg PO BID PRN Qty: 20 RF: 0 Primary Care Provider: Sonam Martinez Referrals: Sonam Martinez, CHANNEL MANAGER-C [Primary Care Provider] - 3-5 Days if not improving Disposition Disposition: Home, Self Care
[2021-05-08] MEDS: Orphenadrine 60 MG/2 ML Ampul IM (18:16)
[2021-05-08] MEDS: Ketorolac 60 MG/2 ML Vial IM (18:16)
[2021-05-08 18:47] VITALS: O2SAT 99
== END 2021-05-08 18:47 | disposition home or self-care (01) ==
PROVIDERS: Emergency Provider Emergency Medicine; PCP Nurse Practitioner Adult Health; Visit Provider Emergency Medicine
DX: M54.50 Low back pain, unspecified (principal); F17.210 Nicotine dependence, cigarettes, uncomplicated
CPT/HCPCS: 96372; 99282

== ENCOUNTER 2021-05-24 11:43 | Outpatient (CLI) | payer MEDICAID, SELFPAY ==
[2021-05-24 12:04] LABS: Hematocrit 42.2 % (37-47); Hemoglobin 14.1 g/dL (12.0-15.0); Mean Corp Hgb Conc 33.4 g/dL (32-36); Mean Corpuscular Hgb 30.2 pg (27.0-32.0); Mean Corpuscular Volume 90.4 fL (81-99); Mean Platelet Vol. 10.2 fl (6.2-12.0); Platelet Count 303 K/mm3 (150-450); RBC Distribution Width CV 12.9 % (11.6-14.6); RBC Distribution Width SD 42.5 fl (35.1-43.9); Red Blood Count 4.67 M/mm3 (4.2-5.4); White Blood Count 11.3 K/mm3 (4.4-11.0)
[2021-05-24 12:18] LABS: Rheumatoid Factor < 10.0 IU/mL (<15)
[2021-05-24 12:56] LABS: Vitamin D,25 Hydroxy 33.2 ng/mL
[2021-05-25 18:48] LABS: ANTINUCLEAR ANTIBODIES DIRECT Negative (Negative)
== END 2021-05-24 23:59 | disposition home or self-care (01) ==
LOC: PAVLAB 11:46
PROVIDERS: PCP Nurse Practitioner Adult Health; Referring Provider Nurse Practitioner Adult Health; Visit Provider Nurse Practitioner Adult Health
DX: M54.9 Dorsalgia, unspecified (principal); M25.59 Pain in other specified joint; M25.579 Pain in unspecified ankle and joints of unspecified foot
CPT/HCPCS: 36415; 82306; 85027; 86038; 86431

== ENCOUNTER 2021-07-12 18:49 | Emergency (ER) | payer MEDICAID, SELFPAY ==
[2021-07-12 18:50] VITALS: BP 129/90; PULSE 112; RESP 18; TEMP 35.9; O2SAT 95; BMI 39.4
--- NOTE | 2021-07-12 19:50 | EX.ED.UPPERE ---
HPI History of Present Illness Chief Complaint: Upper Extremity Injury Informant: patient Onset/Context/Timing Onset: Days (5+) Context: Gradual Onset Quality of Pain: Aching and Burning Location: L wrist/palm Current Severity: Moderate Maximum Severity: Severe Worsened by: movement, making fist Relieved by: remaining still; hasn't tried anything else Associated Symptoms Associated Symptoms: Negative for Parasthesia, Weakness and Loss of Funtion Narrative Narrative: [id number] female gradual onset pain and swelling in her left hand, at the base of the palm mostly. No injury. 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 No numbness or tingling. No other joints affected. [facility] Medical History Anxiety Hx of hepatitis C Home Medications cyclobenzaprine 10 mg PO TID PRN #20 tablet 05/08/21 [Rx Last Taken Unknown] naproxen 500 mg PO BID PRN #20 tab 05/08/21 [Rx Last Taken Unknown] prednisone 10 mg PO UD #30 tab 07/12/21 [Rx Last Taken Unknown] Allergy/AdvReac Type Severity Reaction Status Date / Time No Known Allergies Allergy Verified 07/12/21 18:51 Social History Smoking Status: Current every day smoker tobacco type: cigarettes ROS ROS ED Constitutional Constitutional ED: Denies chills or fever(s) Musculoskeletal Musculoskeletal: Reports extremity pain; Denies neck pain Integumentary Denies Abrasions, rash or wounds Neurologic Neurologic: Denies paresthesias or weakness EXAM Physical Exam Const Vital Signs: 07/12/21 18:50 Temperature 96.7 F L Temperature Source Temporal Pulse Rate 112 H Respiratory Rate 18 Blood Pressure 129/90 H Blood Pressure Mean 103 Pulse Ox 95 Oxygen Delivery Method Room Air Positive well nourished and well developed General Appearance ED: well developed and NAD Neck full ROM and supple Back/Spine normal ROM and normal to inspection Extremity normal to inspection Extremity Narrative: Limited range of motion left wrist due to pain, especially with regards to wrist extension. Able to flex without difficulty. Difficulty forming a fist due to pain but she is able. All flexors and extensors intact. No bony tenderness, but tender in the area of the palmaris longus ventral left wrist. No focal bony tenderness. No erythema or swelling objectively. Hypothenar and thenar eminences nontender nondistended. Neuro oriented x3, no focal motor deficits and no sensory deficits noted Sensorium / Orientation: alert Psych mental status grossly normal and thought process normal Skin no wounds Rashes: no rashes MDM MDM MDM Narrative Medical decision making narrative: I do not think patient needs an x-ray right now, I would treat her like tendinitis of the wrist and/or palmaris longus. Given a wrist splint, prednisone, and a prescription, follow-up advised. She is comfortable with that plan. Discharge Plan Triage Chief Complaint: Upper Extremity Injury ED Provider: Vinnie Cottrell Dx/Rx/DC Orders Clinical Impression: Left wrist tendinitis Instructions: ED Tendonitis Prescriptions: New prednisone 10 MG tablet 10 mg PO UD Qty: 30 RF: 0 No Action cyclobenzaprine [cyclobenzaprine] 10 MG tablet 10 mg PO TID PRN (Reason: Muscle Spasm) Qty: 20 RF: 0 naproxen 500 MG tablet 500 mg PO BID PRN Qty: 20 RF: 0 Primary Care Provider: Sonam Martinez Referrals: Sonam Martinez, [employer] DRIVER-C [Primary Care Provider] - 1-2 Weeks Disposition Disposition: Home, Self Care
[2021-07-12] MEDS: predniSONE 20 MG Tablet 60 MG PO (20:02)
[2021-07-12 20:11] VITALS: BP 120/90; PULSE 112; RESP 18; O2SAT 98
== END 2021-07-12 20:12 | disposition home or self-care (01) ==
PROVIDERS: Emergency Provider Emergency Medicine; PCP Nurse Practitioner Adult Health; Visit Provider Emergency Medicine
DX: M77.9 Enthesopathy, unspecified (principal); F17.210 Nicotine dependence, cigarettes, uncomplicated
CPT/HCPCS: 99283

== ENCOUNTER 2021-08-29 07:19 | Emergency (ER) | payer MEDICAID, SELFPAY ==
[2021-08-29 07:20] VITALS: BP 121/84; PULSE 99; RESP 18; TEMP 36.6; O2SAT 96; BMI 38.6
[2021-08-29 07:22] VITALS: BP 121/84; PULSE 99; RESP 18; TEMP 36.6; O2SAT 96
--- NOTE | 2021-08-29 07:32 | EDS_ITS ---
HPI HPI - URI History of Present Illness Chief Complaint: Cough Narrative Narrative: 41-year-old female presenting with cough, nasal congestion, headache since Sunday. She states that multiple people tested positive for COVID at her workplace. She is concerned she might of contracted COVID-19. She does not know if she has had a fever because she does not own a thermometer but she does state that she gets sweaty sometimes. She has been taking ibuprofen with some relief. She has mild nausea but is not vomiting. She does express to me that she has some loose stools. No urinary complaints. She does not have chest pain, shortness of breath. ROS ROS ED Constitutional Constitutional ED: Reports chills, subjective and sweats Eyes Eyes: Denies change in vision or diplopia ENT ENT ED: Reports rhinorrhea and sore throat Cardiovascular Cardiovascular: Denies chest pain or palpitations Respiratory/Chest Respiratory/Chest: Reports cough; Denies dyspnea or dyspnea on exertion Gastrointestinal Gastrointestinal: Reports diarrhea and nausea; Denies abdominal pain or constipation Genitourinary Genitourinary ED: Denies dysuria or hematuria Musculoskeletal Musculoskeletal: Reports myalgias; Denies arthralgias or back pain Integumentary Denies abscess or Abrasions Neurologic Neurologic: Reports headache(s); Denies paresthesias or weakness Psychiatric Psychiatric: Denies anxiety or depression PFSH PFS Medical History Anxiety Hx of hepatitis C Home Medications ondansetron 4 mg disintegrating tablet 4 mg PO Q8H PRN nausea and vomiting #10 tabs 08/29/21 [Rx Last Taken Unknown] Allergy/AdvReac Type Severity Reaction Status Date / Time No Known Allergies Allergy Verified 08/29/21 07:23 Social History Smoking Status: Current every day smoker tobacco type: cigarettes EXAM Physical Exam Const Vital Signs: 08/29/21 07:20 08/29/21 07:22 08/29/21 07:50 Temperature 97.9 F 97.9 F Temperature Source Temporal Temporal Pulse Rate 99 99 Respiratory Rate 18 18 Respiratory Effort Normal Non-Labored Respiratory Depth Normal Respiratory Pattern Normal Blood Pressure 121/84 H 121/84 H Blood Pressure Mean 96 96 Pulse Ox 96 96 Oxygen Delivery Method Room Air Room Air Room Air Positive well nourished General Appearance ED: NAD; Negative for pallor HEENT Reports moist mucous membranes normocephalic and atraumatic Eyes PERRL and EOMs intact bilaterally Neck no lymphadenopathy and supple General: Negative for anterior neck swelling or lymphadenopathy Resp normal respiratory effort and clear to auscultation bilaterally Auscultation: Negative for rales, rhonchi or wheezes GI non-tender and non-distended Neuro oriented x3 and CN's II-XII intact bilaterally Sensorium / Orientation: alert Psych mental status grossly normal Skin General Skin Exam: Negative for jaundice or pallor MDM MDM MDM Narrative Medical decision making narrative: Patient presenting with viral symptoms. Physical exam is unremarkable. Lungs are clear to auscultation. Vital signs are within normal limits. Chest x-ray on my interpretation shows no acute cardiopulmonary process and the radiologist does agree. COVID testing today is positive. Patient counseled on findings. She will be given a work note. She is on day 3 and will need to quarantine. Return precautions discussed. Patient provided Zofran for home. Impression: 1. COVID-19 2. Nausea Lab Data Attestation: I reviewed the patient's lab results. Radiography Diagnostic Testing: Clinical Impression(s) from Imaging Studies Chest X-Ray 08/29/21 07:46 IMPRESSION: Normal x-ray examination of the chest. Electronically Signed: Esa Oliveros MD at 8:04 EDT Reading Location ID and State: [facility] / [place] Tel , Service support , Discharge Plan Triage Chief Complaint: Cough ED Provider: Pete Forbes Dx/Rx/DC Orders Instructions: Nausea Vomit Control Prescriptions: New ondansetron 4 mg tablet,disintegrating 4 mg PO Q8H PRN (Reason: nausea and vomiting) Qty: 10 0RF Primary Care Provider: Sonam Martinez Referrals: Sonam Martinez, GASTROENTEROLOGY PHYSICIAN-C [Primary Care Provider] - Disposition Disposition: Home, Self Care
[2021-08-29] MEDS: Acetaminophen 500 MG Tablet 1000 MG PO (07:43)
[2021-08-29] MEDS: Ondansetron ODT 4 MG Tablet PO (07:43)
--- NOTE | 2021-08-29 07:46 | RAD_ITS ---
STUDY: X-RAY CHEST REASON FOR EXAM: Female, 41 years old. cough TECHNIQUE: Single AP portable view of the chest. COMPARISON: 09/13/2019 FINDINGS: The lungs are clear and expanded. There is no demonstrated pleural abnormality. Normal size heart. Normal mediastinum and jama. Normal visualized pulmonary arteries. Normal visualized aortic arch and descending thoracic aorta. Mild S-shaped scoliosis of the thoracic spine. Normal visualized ribs, clavicles, and shoulders. There is no demonstrated abnormality of the visualized soft tissue structures of the upper abdomen. RAD/Chest 1 View (Portable) IMPRESSION: Normal x-ray examination of the chest. Electronically Signed: Esa Oliveros MD at 8:04 EDT ,
[2021-08-29 07:50] VITALS: O2SAT 96
[2021-08-29 08:30] VITALS: PULSE 85; RESP 17; O2SAT 98
== END 2021-08-29 08:31 | disposition home or self-care (01) ==
PROVIDERS: Emergency Provider Student in an Organized Health Care Education/Training Program; PCP Nurse Practitioner Adult Health; Visit Provider Student in an Organized Health Care Education/Training Program
DX: U07.1 COVID-19 (principal); R11.0 Nausea; F17.210 Nicotine dependence, cigarettes, uncomplicated
CPT/HCPCS: 71045; 87428; 99283

== ENCOUNTER → 2021-12-07 | Outpatient (CLI) | payer MEDICAID, SELFPAY ==
--- NOTE | 2021-12-07 13:25 | BI_ITS ---
MAMMOGRAPHY - BILATERAL SCREENING REASON FOR EXAM: Female, 41 years old. Routine annual screening examination. PERTINENT HISTORY: Aunts with breast cancer. TECHNIQUE: Digital bilateral breast ken (3D mammographic acquisition) in the CC and MLO projections. 2-D mediolateral oblique (MLO) and craniocaudad (CC) views of both breasts were obtained. CAD: Full Field Digital Mammography with Computer Added Detection was performed. COMPARISON: Comparison is made with prior study dated 07/11/2019. FINDINGS: Breast Composition: The breasts are heterogeneously dense, which may obscure small masses. Stable asymmetry of breast tissue with more breast tissue is seen in the upper-outer quadrant of the left breast as compared to the right side. Stable small benign-appearing bilateral axillary lymph nodes. There are no dominant masses or suspicious calcifications. No other significant abnormalities are identified. There has been no significant change since the prior study. BI/SCRN MAMM (CAD)W/KEN BILAT IMPRESSION: Stable bilateral screening mammogram. Yearly follow-up mammogram recommended. (A) ASSESSMENT CATEGORY: BIRADS Category 2: Benign. A letter regarding these results will be sent to the patient by the facility within 30 days. Approximately 10% of breast cancers are not detected by mammography. A normal mammogram should not delay biopsy of a clinically suspicious abnormality. [id number] Electronically Signed: Azar Fox MD at 14:30 EDT ,
== END | disposition home or self-care (01) ==
LOC: OPBI 13:22
PROVIDERS: PCP Family Medicine; Visit Provider Family Medicine
DX: Z12.31 Encounter for screening mammogram for malignant neoplasm of breast (principal); Z80.3 Family history of malignant neoplasm of breast
CPT/HCPCS: 77063; 77067

== ENCOUNTER → 2021-12-21 | Outpatient (CLI) | payer MEDICAID, SELFPAY ==
--- NOTE | 2021-12-21 11:17 | US_ITS ---
EXAM: US PELVIS TRANSVAGINAL CLINICAL INDICATION: Irregular menstruation TECHNIQUE: Transvaginal pelvic ultrasound was performed with grayscale and color Doppler imaging. Transvaginal imaging was used for better evaluation of the endometrium and adnexa. This report was created using [employer] report [employer]ec[employer] technology. COMPARISON: None. FINDINGS: UTERUS/CERVIX: Uterus measures 7.6 x 4.9 x 4.2 cm with endometrial thickness of 3 mm. Uterine echogenicity is diffusely heterogeneous which raises the possibility of underlying adenomyosis or diffuse fibroid involvement of the uterus. Anteverted. RIGHT OVARY: Normal. Blood flow is present in the right ovary. The right ovary measures 2.6 x 2.4 x 1.2 cm. LEFT OVARY: Normal. Blood flow is present in the left ovary. The left ovary measures 2.0 x 1.7 x 0.7 cm. FREE FLUID: No adnexal mass or free pelvic fluid. BLADDER: Empty bladder which cannot be evaluated with this probe. US/Transvaginal Non- IMPRESSION: Heterogeneous uterine echotexture which may represent adenomyosis. Electronically Signed: Hudson Barone MD at 15:06 EDT ,
== END | disposition home or self-care (01) ==
LOC: US 11:16
PROVIDERS: Referring Provider Nurse Practitioner Women's Health; Visit Provider Nurse Practitioner Women's Health
DX: N92.6 Irregular menstruation, unspecified (principal)
CPT/HCPCS: 76830

== ENCOUNTER 2022-01-03 09:22 | Emergency (ER) | payer MEDICAID, SELFPAY ==
[2022-01-03 09:26] VITALS: BP 134/98; PULSE 91; RESP 16; TEMP 36.7; O2SAT 96; BMI 35.1
--- NOTE | 2022-01-03 09:46 | EDS_ITS ---
HPI History of Present Illness Chief Complaint: Dental Narrative Narrative: Patient presents with a right upper dental pain, she has a chronic tooth fracture in that region and a gets infected. She has no fever chills no neck pain or trouble swallowing. [facility] Medical History Anxiety Hx of hepatitis C Home Medications naproxen 500 mg tablet 500 mg PO BID #14 tabs 01/03/22 [Rx Last Taken Unknown] penicillin V potassium 500 mg tablet 500 mg PO 4X/DAY #40 tabs 01/03/22 [Rx Last Taken Unknown] Allergy/AdvReac Type Severity Reaction Status Date / Time No Known Allergies Allergy Verified 01/03/22 09:24 Social History Smoking Status: Current every day smoker tobacco type: cigarettes ROS ROS ED ROS Narrative Past medical history: Reviewed Medications: Reviewed Social history: Noncontributory Review of systems: All systems negative except as indicated General: No fever Eyes: No visual changes ENT: No upper airway congestion, normal voice. Dental: As in HPI Neck: No neck pain or swelling or voice change Cardiovascular: No chest pain Respiratory: No shortness of breath or cough Gastrointestinal: No nausea or vomiting EXAM Physical Exam Narrative Exam Narrative: Physical exam General: Patient appears somewhat uncomfortable Head: Normocephalic, Atraumatic Eyes: Conjunctiva not pale ENT: Moist mucous membranes. Right upper first molar is significantly decayed with pain in that region no obvious abscess. No facial swelling. Normal soft palate and normal voice. Neck: Supple, Nontender, No lymphadenopathy Cardiovascular: Regular rate, Regular rhythm Respiratory: No distress, CTA bilaterally Skin: Normal color, No rash Neurological: No facial droop Psychological: Anxious appearing t Const Vital Signs: 01/03/22 09:26 Temperature 98.1 F Temperature Source Temporal Pulse Rate 91 Respiratory Rate 16 Blood Pressure 134/98 H Blood Pressure Mean 110 Pulse Ox 96 Oxygen Delivery Method Room Air MDM MDM MDM Narrative Medical decision making narrative: Patient will be treated with antibiotics, she is to follow-up with Jessica Diaz for definitive dental treatment. Discharge Plan Triage Chief Complaint: Dental ED Provider: Timbo Reyes Dx/Rx/DC Orders Clinical Impression: Odontalgia, Dental infection Instructions: ED Dental Pain Prescriptions: New penicillin V potassium 500 mg tablet 500 mg PO 4X/DAY Qty: 40 0RF naproxen 500 mg tablet 500 mg PO BID Qty: 14 0RF Primary Care Provider: Jessica Keller Referrals: Jessica Keller [Primary Care Provider] - 3-5 Days Disposition Disposition: Home, Self Care
== END 2022-01-03 09:58 | disposition home or self-care (01) ==
LOC: ED 09:57
PROVIDERS: Emergency Provider Emergency Medicine; Visit Provider Emergency Medicine
DX: K08.89 Other specified disorders of teeth and supporting structures (principal); K04.7 Periapical abscess without sinus; F17.210 Nicotine dependence, cigarettes, uncomplicated
CPT/HCPCS: 99282

== ENCOUNTER 2022-02-12 23:12 | Emergency (ER) | payer MEDICAID, SELFPAY ==
--- NOTE | 2022-02-12 | RAD_ITS ---
EXAM: XR LEFT FOOT COMPLETE, 3 OR MORE VIEWS CLINICAL INDICATION: injury great toe TECHNIQUE: Frontal, lateral and oblique views of the left foot. This report was created using [employer] report generation technology. COMPARISON: None. FINDINGS: BONES/JOINTS: Question subacute or old fracture involving the metadiaphysis of the distal fibula. This is incompletely imaged on this study. Small plantar calcaneal enthesophyte. No acute or healing fracture or malalignment involving the foot. Acute intra-articular fracture involving the base of the first distal phalanx laterally. No other acute or healing fracture or malalignment. Preservation of the joint space. No sclerotic or destructive changes observed. SOFT TISSUES: Unremarkable. No soft tissue swelling or gas. No radiopaque foreign body. RAD/Foot min 3 Views IMPRESSION: Acute intra-articular fracture involving the base of the first distal phalanx laterally. Fracture deformity involving the distal fibula is incompletely imaged on this study. Electronically Signed: Segundo Srinivasan MD at 0:16 EST ,
[2022-02-12 23:13] VITALS: BP 121/73; PULSE 72; RESP 16; TEMP 36.5; O2SAT 96; BMI 37.0
--- NOTE | 2022-02-12 23:19 | ED.RN ---
pt states if i have to do a drug test i dont want to do this under workmans comp This RN confirms that her employer requires drug screening for their workmans comp, patient refused to file.
--- NOTE | 2022-02-12 23:30 | EDS_ITS ---
HPI History of Present Illness Chief Complaint: Lower Extremity Injury Narrative Narrative: 41-year-old female presenting with left great toe pain. Patient dropped an iced tea tin on her foot at work. She believes the tin weighs 5-10 pounds. She complains of left great toe pain. Denies other injuries. Tetanus is up-to-date. Tetanus Immunization: <5 years Recent Illness/Hospitalization: No PFSH PFSH Medical History Anxiety Hx of hepatitis C Home Medications cephalexin 500 mg capsule 500 mg PO Q12 #14 CAPSULES 02/13/22 [Rx Last Taken Unknown] naproxen 500 mg tablet 500 mg PO BID PRN #20 tabs 02/13/22 [Rx Last Taken Unknown] Allergy/AdvReac Type Severity Reaction Status Date / Time No Known Allergies Allergy Verified 02/12/22 23:15 Social History Smoking Status: Current every day smoker tobacco type: cigarettes ROS ROS ED Constitutional Constitutional ED: Denies fever(s) Cardiovascular Cardiovascular: Denies chest pain Respiratory/Chest Respiratory/Chest: Denies cough Gastrointestinal Gastrointestinal: Denies abdominal pain Musculoskeletal Musculoskeletal: Reports other Details: left great toe pain Integumentary Denies rash Neurologic Neurologic: Denies headache(s) Psychiatric Psychiatric: Denies suicidal thoughts EXAM Physical Exam Const Vital Signs: 02/12/22 23:13 Temperature 97.7 F L Temperature Source Oral Pulse Rate 72 Respiratory Rate 16 Blood Pressure 121/73 H Blood Pressure Mean 89 Pulse Ox 96 Oxygen Delivery Method Room Air Positive well nourished and well developed General Appearance ED: well developed HEENT Reports normocephalic and head/scalp atraumatic Eyes PERRL and EOMs intact bilaterally Neck supple General: Negative for tenderness Chest Wall inspection of chest normal Resp normal respiratory effort and clear to auscultation bilaterally Cardio regular rate and regular rhythm Extremity Extremity Narrative: left great toe diffuse tenderness. contusion and abrasion proximal to nail. Normal cap refill and pulses. Neuro oriented x3 Sensorium / Orientation: alert Psych mental status grossly normal MDM MDM MDM Narrative Medical decision making narrative: Patient declines to file Worker's Compensation paperwork. Tetanus is up-to-date. Left foot x-ray read by myself and radiology shows acute intra- articular fracture involving the base of the first distal phalanx laterally. Distal fibula incompletely imaged. Ankle x-ray was ordered, patient declined. Patient refused irrigation, krysten tape, postop shoe. She refused medications. She then eloped from the emergency department. She was given podiatry follow-up on paperwork that she was given as she was leaving. She was advised to follow- up with podiatry. Radiography Diagnostic Testing: Clinical Impression(s) from Imaging Studies Foot X-Ray 02/12/22 00:00 IMPRESSION: Acute intra-articular fracture involving the base of the first distal phalanx laterally. Fracture deformity involving the distal fibula is incompletely imaged on this study. Electronically Signed: Segundo Srinivasan MD at 0:16 EST , Discharge Plan Triage Chief Complaint: Lower Extremity Injury ED Provider: Jenna Godinez Dx/Rx/DC Orders Clinical Impression: Closed fracture of left great toe Instructions: ED Fracture, Toe, Closed Prescriptions: New cephalexin 500 mg capsule 500 mg PO Q12 Qty: 14 0RF naproxen 500 mg tablet 500 mg PO BID PRN Qty: 20 0RF Primary Care Provider: Jessica Keller Referrals: Ronald Rodriguez DPM [Med Staff - Active Staff] - Jessica Keller [Primary Care Provider] - Disposition Disposition: Elopement Discharge Date/Time: 02/13/22 01:01
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
== END 2022-02-13 01:01 | disposition left against medical advice (07) ==
PROVIDERS: Emergency Provider Emergency Medicine; Visit Provider Emergency Medicine
DX: S92.402A Displaced unspecified fracture of left great toe, initial encounter for closed fracture (principal); F17.210 Nicotine dependence, cigarettes, uncomplicated; W22.8XXA Striking against or struck by other objects, initial encounter
CPT/HCPCS: 73630; 99284

== ENCOUNTER → 2022-02-14 | Outpatient (CLI) | payer MEDICAID, SELFPAY ==
--- NOTE | 2022-02-14 16:47 | CT_ITS ---
STUDY: CT PELVIS WITHOUT CONTRAST REASON FOR EXAM: Female, 41 years old. ABNORMAL FINDINGS RADIATION DOSAGE (If Supplied By Facility): CTDIvol = ( 28.21 ) mGy, DLP = ( 968.68 ) mGycm TECHNIQUE: Transaxial imaging of the pelvis was performed without oral contrast, and without intravenous administration of contrast material. Individualized dose optimization techniques were used for this CT. COMPARISON: None. FINDINGS: Normal urinary bladder. Normal visualized small intestine. Normal visualized colon. There is no pelvic fluid. There is no pelvic mass lesion or lymphadenopathy. Normal visualized pelvic arteries. Normal abdominal wall. Normal osseous structures. CT/Pelvis without IV Contrast IMPRESSION: Normal unenhanced CT of the pelvis. Electronically Signed: Esa Oliveros MD at 23:38 EST ,
== END | disposition home or self-care (01) ==
LOC: CT 16:46
PROVIDERS: Referring Provider Nurse Practitioner Women's Health; Visit Provider Nurse Practitioner Women's Health
DX: R93.89 Abnormal findings on diagnostic imaging of other specified body structures (principal)
CPT/HCPCS: 72192

== ENCOUNTER 2022-04-10 03:07 | Emergency (ER) | payer MEDICAID, SELFPAY ==
[2022-04-10 03:09] VITALS: TEMP 36.9; BMI 36.1
[2022-04-10 03:12] VITALS: BP 127/83; PULSE 92; RESP 18; O2SAT 92
--- NOTE | 2022-04-10 03:27 | RAD_ITS ---
STUDY: X-RAY - LEFT ANKLE REASON FOR EXAM: Female, 41 years old. Pain TECHNIQUE: 3 view(s) of the ankle. COMPARISON: February 12, 2022 right foot x-ray FINDINGS: Normal visualized distal tibia and fibula. Normal medial and lateral malleoli. End noted is a degenerative or posttraumatic appearance of the interosseous space between the tibia fibula stable since prior study. Normal visualized talus and calcaneus. There is a visualized os trigonum. The visualized subtalar, talonavicular, calcaneocuboid and tarsal articulations are normal. The soft tissue structures are unremarkable. RAD/Ankle min 3 Views IMPRESSION: Findings suggest probable prior injury of the intraosseous ligament which is hypertrophied at the level of the distal tibia and fibula. There is no visualized acute fracture. Findings are stable since the prior study. Electronically Signed: Anna Lee MD at 4:06 EST Reading Location ID and State: [facility] / [place] Tel , Service support ,
--- NOTE | 2022-04-10 03:27 | RAD_ITS ---
STUDY: X-RAY - LEFT FOOT CLINICAL: Female, 41 years old. Pain TECHNIQUE: 3 view(s) of the foot. COMPARISON: February 12, 2022 foot x-ray FINDINGS: Normal talus, calcaneus, and tarsal bones. There is an irregular appearance of the interosseous space between the tibia and fibula stable since prior study suggesting possible prior injury. Normal visualized subtalar, talonavicular, calcaneocuboid, tarsal and tarsometatarsal articulations. Normal metatarsi. Normal metatarsophalangeal joint of the great toe. Normal tibial and fibular sesamoid bones. Normal interphalangeal joint of the great toe. There is a prior fracture at the base of the distal phalanx of the first digit with minimal interval healing since prior study. Normal second through fifth metatarsophalangeal joints. Normal interphalangeal joints and phalanges of the lesser toes. The soft tissue structures are unremarkable. RAD/Foot min 3 Views IMPRESSION: No visualized acute fracture. Stable hypertrophy of the interosseous space between the tibia and fibula. Prior fracture of the base of the distal phalanx of the first digit relatively unchanged since prior study. Electronically Signed: Anna Lee MD at 4:09 EST Reading Location ID and State: [facility] / [place] Tel , Service support ,
[2022-04-10] MEDS: Ondansetron ODT 4 MG Tablet PO (03:42)
[2022-04-10] MEDS: Morphine 4 MG/ML Syringe 6 MG IM (03:44)
--- NOTE | 2022-04-10 04:34 | EDS_ITS ---
HPI History of Present Illness Chief Complaint: Lower Extremity Injury Narrative Narrative: Patient is a 41-year-old female with past medical history of hepatitis and anxiety. She states she was walking up her stairs a few hours prior to arrival when she tripped and injured her left foot. She reports that the area is swollen and painful and she has difficulty walking on it secondary to this. She states she has concern for fracture based on the pain and difficulty ambulating and therefore comes in for evaluation [facility] PFS Medical History Anxiety Hx of hepatitis C Allergy/AdvReac Type Severity Reaction Status Date / Time No Known Allergies Allergy Verified 02/12/22 23:15 Social History Smoking Status: Current every day smoker tobacco type: cigarettes ROS ROS ED Constitutional Constitutional ED: Denies chills or fever(s) ENT ENT ED: Denies sore throat Cardiovascular Cardiovascular: Denies chest pain Respiratory/Chest Respiratory/Chest: Denies cough or dyspnea Gastrointestinal Gastrointestinal: Denies abdominal pain, diarrhea, nausea or vomiting Genitourinary Genitourinary ED: Denies dysuria Musculoskeletal Musculoskeletal: Reports other Details: Positive left foot and left ankle pain Integumentary Denies Abrasions or rash Neurologic Neurologic: Denies headache(s) or paresthesias Psychiatric Psychiatric: Reports anxiety Hematologic/Lymphatic Hematologic/Lymphatic: Denies easy bleeding or easy bruising EXAM Physical Exam Const Vital Signs: 04/10/22 03:09 04/10/22 03:12 Temperature 98.5 F Temperature Source Temporal Pulse Rate 92 Respiratory Rate 18 Blood Pressure 127/83 H Blood Pressure Mean 97 Pulse Ox 92 Oxygen Delivery Method Room Air Positive well nourished, well developed and obese General Appearance ED: well developed Nutritional Appearance: obese HEENT HEENT Narrative: Normocephalic atraumatic Eyes PERRL and EOMs intact bilaterally Neck supple Resp normal respiratory effort and clear to auscultation bilaterally Cardio regular rate and regular rhythm Extremity Extremity Narrative: Left lower extremity is neurovascularly intact. There is mild soft tissue swelling to the dorsum of the left foot and near the lateral malleolus. Patient has pain on palpation of the lateral malleolus and over top the midportion of the dorsum of the left foot. Achilles tendon is intact and ankle ligaments are stable. Remainder the exam is normal Neuro oriented x3 and CN's II-XII intact bilaterally Sensorium / Orientation: alert Psych mental status grossly normal Skin no rashes or lesions noted Skin Narrative: No abrasions or ecchymosis noted capillary refills less than 3 seconds MDM MDM MDM Narrative Medical decision making narrative: Patient presented to the ER with stable vitals and reported mechanical injury so there is no need for cardiac or syncope work-up. Her history is concerning for ligamentous injury or Achilles tendon rupture or acute fracture or dislocation. Her exam is not suggest any type of tendon or ligamentous injury and an x-ray was obtained to rule out bony injury. Images revealed no acute findings and therefore patient has a contusion with sprain and can be given a walking boot and discharged home Radiography Diagnostic Testing: Clinical Impression(s) from Imaging Studies Ankle X-Ray 04/10/22 03:27 IMPRESSION: Findings suggest probable prior injury of the intraosseous ligament which is hypertrophied at the level of the distal tibia and fibula. There is no visualized acute fracture. Findings are stable since the prior study. Electronically Signed: Anna Lee MD at 4:06 EST , Foot X-Ray 04/10/22 03:27 IMPRESSION: No visualized acute fracture. Stable hypertrophy of the interosseous space between the tibia and fibula. Prior fracture of the base of the distal phalanx of the first digit relatively unchanged since prior study. Electronically Signed: Anna Lee MD at 4:09 EST , X-ray of the left ankle and left foot as interpreted by the emergency medicine physician revealed chronic changes without acute fracture or dislocation Discharge Plan Triage Chief Complaint: Lower Extremity Injury ED Provider: Segundo Telles Dx/Rx/DC Orders Clinical Impression: Contusion of foot, left, Left ankle sprain Instructions: ED Foot Contusion, ED Ankle Sprain (Adult) Stand Alone Forms: ED Work / School Excuse Primary Care Provider: Jessica Keller Referrals: Jessica Keller [Primary Care Provider] - Disposition Disposition: Home, Self Care Discharge Date/Time: 04/10/22 05:25
[2022-04-10 05:24] VITALS: BP 127/83; PULSE 92; RESP 18; O2SAT 92
== END 2022-04-10 05:25 | disposition home or self-care (01) ==
PROVIDERS: Emergency Provider Emergency Medicine; Visit Provider Emergency Medicine
DX: S90.32XA Contusion of left foot, initial encounter (principal); S93.402A Sprain of unspecified ligament of left ankle, initial encounter; F17.210 Nicotine dependence, cigarettes, uncomplicated; E66.9 Obesity, unspecified; W18.40XA Slipping, tripping and stumbling without falling, unspecified, initial encounter
CPT/HCPCS: 73610; 73630; 96372; 99285

== ENCOUNTER → 2023-01-01 | Outpatient (CLI) | payer MEDICAID, SELFPAY ==
[2023-01-01 10:58] LABS: Hematocrit 43.2 % (37-47); Hemoglobin 13.8 g/dL (12.0-15.0); Mean Corp Hgb Conc 31.9 g/dL (32-36); Mean Corpuscular Hgb 29.1 pg (27.0-32.0); Mean Corpuscular Volume 90.9 fL (81-99); Mean Platelet Vol. 9.9 fl (6.2-12.0); Platelet Count 375 K/mm3 (150-450); RBC Distribution Width CV 12.9 % (11.6-14.6); RBC Distribution Width SD 43.3 fl (35.1-43.9); Red Blood Count 4.75 M/mm3 (4.2-5.4); White Blood Count 11.7 K/mm3 (4.4-11.0)
[2023-01-01 11:13] LABS: Hemoglobin A1c 5.5 % (3.8-5.6)
[2023-01-01 11:46] LABS: hCG Titer Quant., Serum < 1 mIU/mL (1-3)
[2023-01-01 11:51] LABS: ALB/GLOB Ratio 1.1 RATIO (0.9-2.4); AST(SGOT) 18 U/L (15-37); Alanine Aminotransfer ALT/SGPT 23 U/L (13-56); Albumin, Serum 3.7 g/dL (3.2-5.0); Alkaline Phosphatase 86 U/L (45-117); Anion Gap 5 (5-15); BUN 13 mg/dL (7-18); BUN/Creat Ratio 20.3 RATIO (10-20); Calcium,Total 9.2 mg/dL (8.5-10.1); Chloride 107 mmol/L (98-107); Creatinine, Serum 0.64 mg/dL (0.55-1.02); EST Glomerular Filtration Rate 107 mL/min (>60); Est Glom Filt Rate - Afr Amer 130 mL/min (>60); Globulin 3.4 g/dL (2.2-4.2); Glucose 99 mg/dL (74-106); Potassium 3.8 mmol/L (3.5-5.1); Prolactin 4.8 ng/mL; Protein, Total 7.1 g/dL (6.4-8.2); Sodium Level 138 mmol/L (136-145); Thyroid Stim Hormone (TSH) 0.77 uIU/mL (0.358-3.74)
== END | disposition home or self-care (01) ==
PROVIDERS: Referring Provider Nurse Practitioner Family; Visit Provider Nurse Practitioner Family
DX: N64.52 Nipple discharge (principal); Z13.1 Encounter for screening for diabetes mellitus
CPT/HCPCS: 36415; 80053; 83036; 84146; 84443; 84702; 85027

== ENCOUNTER → 2023-01-12 | Outpatient (CLI) | payer MEDICAID, SELFPAY ==
--- NOTE | 2023-01-12 09:05 | US_ITS ---
STUDY: ULTRASOUND BREAST - BILATERAL REASON FOR EXAM: Female, 42 years old. Bilateral nipple discharge. TECHNIQUE: Axial and longitudinal images of the BILATERAL breast were performed with a high resolution ultrasound transducer. # OF IMAGES: 26 COMPARISON: Comparison is made with prior mammogram done earlier in the day. FINDINGS: BILATERAL Breast: The retroareolar region of both breasts was examined with ultrasound. There is evidence of dilated retroareolar ducts. US/Breast Limited Unilateral IMPRESSION: Retroareolar ductal dilatation. ASSESSMENT CATEGORY: BIRADS Category 2: Benign. A letter regarding these results will be sent to the patient by the facility within 30 days. Electronically Signed: Azar Fox MD at 12:17 EST ,
--- NOTE | 2023-01-12 09:05 | BI_ITS ---
MAMMOGRAPHY - BILATERAL DIAGNOSTIC REASON FOR EXAM: Female, 42 years old. Bilateral nipple discharge. PERTINENT HISTORY: Aunts with breast cancer. TECHNIQUE: Digital bilateral breast bety (3D mammographic acquisition) in the CC and MLO projections. 2-D mediolateral oblique (MLO) and craniocaudad (CC) views of both breasts were obtained. CAD: Full Field Digital Mammography with Computer Added Detection was performed. COMPARISON: Comparison is made with prior examination of December 07, 2021 and July 11, 2019. FINDINGS: Breast Composition: The breasts are heterogeneously dense, which may obscure small masses. There are no dominant masses or suspicious calcifications. Once again, there is stable asymmetry of breast tissue where more breast tissue is seen in the upper outer quadrant of the left breast as compared to the right side. Stable small benign-appearing bilateral axillary lymph nodes. No other significant abnormalities are identified. There has been no significant change since the prior study. BI/DIAG MAMM W/CAD, BILAT IMPRESSION: Stable bilateral diagnostic mammogram. The patient''s history of bilateral breast discharge, targeted correlation with ultrasound is recommended. ASSESSMENT CATEGORY: BIRADS Category 0: Incomplete. Need additional imaging evaluation. A letter regarding these results will be sent to the patient by the facility within 30 days. Approximately 10% of breast cancers are not detected by mammography. A normal mammogram should not delay biopsy of a clinically suspicious abnormality. Electronically Signed: Azar oFx MD at 10:47 EST ,
== END | disposition home or self-care (01) ==
LOC: OPBI 09:02
PROVIDERS: Referring Provider Nurse Practitioner Family; Visit Provider Nurse Practitioner Family
DX: N64.52 Nipple discharge (principal)
CPT/HCPCS: 77062; 76642; 77066; G0279

== ENCOUNTER → 2023-01-23 | Outpatient (CLI) | payer MEDICAID, SELFPAY ==
--- NOTE | 2023-01-23 14:07 | NEURO_ITS ---
NCS and/or EMG Patient Report Ordering Doctor: Antonella Morris NP DATE OF SERVICE: 01/23/23 Clinical Summary: This is a 42 year old female patient presenting with complaints of numbness and tingling in both hands. This EMG/NCS was performed to evaluate for right/left carpal tunnel syndrome. Nerve Conduction Studies Summary: The median-D2 SNAP distal latency was prolonged bilaterally with reduced amplitude on the right side. The right median-APB CMAP distal latency was prolonged. Needle Examination Summary: Needle examination of select muscles of the bilateral upper extremities was normal. Impression: There is electrodiagnostic evidence of the following - 1) Moderate to severe, right median mononeuropathy at the wrist (carpal tunnel syndrome), with secondary sensory fiber axonal loss and motor fiber [place] 2) Mild, left median mononeuropathy at the wrist (carpal tunnel syndrome), with sensory fiber demyelination Multi Select Codes Neurology Neurology Interp Codes: 23566-31 Musc test done w/n test comp (interp) (2) and 63914-82 Nrv cndj test 9-10 studies (interp)
== END | disposition home or self-care (01) ==
LOC: PSN 12:17
PROVIDERS: Referring Provider Nurse Practitioner Family; Visit Provider Nurse Practitioner Family
DX: G56.03 Carpal tunnel syndrome, bilateral upper limbs (principal)
CPT/HCPCS: 95886; 95912

== ENCOUNTER → 2023-02-08 | Outpatient (CLI) | payer MEDICAID, SELFPAY ==
--- NOTE | 2023-02-08 12:45 | US_ITS ---
STUDY: SUPERFICIAL ULTRASOUND - LEFT AXILLA REASON FOR EXAM: Female, 42 years old. Localized enlarged lymph nodes. Enlarged lymph node, lump left axilla. TECHNIQUE: A superficial ultrasound was performed with real-time and static disla-scale imaging. COMPARISON: None. FINDINGS: Imaged region of clinical concern involves soft tissues of left axilla. No discrete mass, fluid collection, lymph node or shadowing calcifications detected. US/Ext Non Vasc Limited/Soft Tiss IMPRESSION: Negative left axilla Electronically Signed: Eugenio Ferrell MD at 1:33 EST ,
== END | disposition home or self-care (01) ==
LOC: US 12:43
PROVIDERS: Referring Provider Nurse Practitioner Family; Visit Provider Nurse Practitioner Family
DX: R59.0 Localized enlarged lymph nodes (principal)
CPT/HCPCS: 76882

== ENCOUNTER 2023-03-26 12:23 | Emergency (ER) | payer MEDICAID, SELFPAY ==
[2023-03-26 12:24] VITALS: BP 134/82; PULSE 82; RESP 16; TEMP 36.5; O2SAT 98; BMI 33.1
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
[2023-03-26 14:55] VITALS: BP 119/83; PULSE 147; RESP 16; TEMP 36.4; O2SAT 100
--- OUTSIDE RECORDS SUMMARY | 2023-03-26 15:09 | XMS RPT_ITS | CCD ---
Author Name Unknown Address [address] [place] [id number] Organization [facility] Care Team Providers Care Computer Systems Technology Instructor Name Role Phone SELF Referring Unavailable Results Test Name Value Interpretation Reference Range Facil ity Encounters Encounter Date Encounter Type Care Provider Facility Start: 11-29-2022 End: 11-29-2022 ambulatory Facility:[facility] Start: 09-20-2022 End: 09-20-2022 ambulatory Facility:[facility] Start: 08-26-2022 End: 08-26-2022 ambulatory SELF Facility:[facility] Payers Date Payer Category Payer Medicaid [id number] Progress note 11-29-2022 Note Date & Type Note Facility 11-29-2022 Note HNO ID: [id number] Author: Sid Love MD Service: ? 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 Location: right hand and 1-4th fingers Character: cold, numb Radiation: up to the olecranon Aggravating: scrapped labels and spray painted recently Relieving: Pain relievers: Motrin Associated: cold hand, numbness, weakness Pertinent negatives: Denies new injury, fever, swelling, blue or red discoloration during episodes, neck pain MEDICATIONS: ibuprofen (MOTRIN) 600 mg tablet Take 1 tablet by mouth every 8 hours as needed for pain. ALLERGIES: ALLERGIES No Known Allergies VITALS: BP 118/64 Pulse 82 Temp 36.6 ?C (97.9 ?F) Resp 16 Wt 89.3 kg (196 lb 12.8 oz) LMP (LMP Unknown) SpO2 96% PHYSICAL EXAM: GEN: pleasant, no acute distress, alert HEENT: PERRL, EOMI, MMM NECK: supple, HEART: regular rate, regular rhythm, no murmurs LUNGS: clear to auscultation, no wheezes or crackles, no increased WOB EXT: no clubbing, no cyanosis, no edema. Remote cutting scars left arm. Wrist: right. Remote longitudinal scar on the lateral radial wrist. Full wrist ROM with some discomfort. Radial, ulnar, and brachial pulses 2+/4. Normal distal sensation and capillary refill 1 second. PSYCH: Pleasant during interview with normal rate of speech, tearful when a cream to take the pain away was not recommended, patient came back after the visit yelling at desk staff, administration, and provider and accusing of mistreatment. She was upset because she had to make another appointment with her primary care provider and nerve conduction test was not ordered here. ASSESSMENT/PLAN: 1. Numbness and tingling in right hand - ICD9: 782.0, ICD10: R20.0, R20.2 (primary diagnosis) 2. Wrist pain, right - ICD9: 719.43, ICD10: M25.531 Symptoms consistent with carpal tunnel syndrome. Continue ibuprofen. Placed in cockup splint from [employer]. Where for work and sleep. Follow up with primary care to discuss nerve conduction testing if symptoms persist. Sid Love MD [facility] Progress note 09-20-2022 Note Date & Type Note Facility 09-20-2022 Note HNO ID: [id number] Author: Gisele Ansari APRN.GEOSPATIAL INFORMATION SCIENTIST Service: ? Author Type: Nurse Practitioner Type: Progress Notes Filed: 09/20/2022 8:19 AM Note Text: Subjective HPI Judith Mosley is a 42 year old female who presents with right groin pain for the past 2 days. She was doing an exercise she saw on faceback which involved lying with her butt against a wall and flexing and extending her legs to the side. She notice pain afterwards. She rates the pain 7/10, notices it mostly with right leg abduction. She denies any falls or trauma. She has not taken any medication for this at home. Review of Systems Constitutional: Negative for chills and fever. Musculoskeletal: Positive for falls and joint pain. See HPI Skin: Negative for itching and rash. BP 100/72 Pulse 70 Temp 36.4 ?C (97.5 ?F) Resp 21 Wt 89.1 kg (196 lb 6.4 oz) LMP (LMP Unknown) SpO2 100% No past medical history on file. No past surgical history on file. ALLERGIES Patient has no known allergies. MEDICATIONS ibuprofen (MOTRIN) 600 mg tablet Take 1 tablet by mouth every 8 hours as needed for pain. No family history on file. Social History Tobacco Use Smoking status: Unknown Smokeless tobacco: Never Substance Use Topics Alcohol use: Never Drug use: Yes Types: Marijuana Comment: medical card Objective Physical Exam Vitals and nursing note reviewed. Constitutional: Appearance: Normal appearance. She is obese. Musculoskeletal: General: Tenderness present. No swelling, deformity or signs of injury. Right hip: Normal. Legs: Skin: General: Skin is warm and dry. Capillary Refill: Capillary refill takes less than 2 seconds. Findings: No bruising, erythema or rash. Neurological: Mental Status: She is alert. Sensory: Sensation is intact. Motor: Motor function is intact. No weakness or tremor. Gait: Gait is intact. Gait normal. ASSESSMENT/PLAN: 1. Groin pain, right - ICD9: 789.03, ICD10: R10.31 - XR HIP GENERAL 3V PELV/AP/LAT RIGHT - CONSULT PANEL TO ORTHOPAEDICS- patient to schedule if not improving with rest, ice, ibuprofen - IBUPROFEN 600 MG TABLET Rest lying down with hips your slightly flexed and supported with cushions or on crutches when moving. Hip abduction should be avoided. Crushed ice (covered, not directly applied) can be compressed against the injured area for up to 20 minutes every one to two hours; this treatment may be continued for 48 hours. - Follow-up with your PCP in 3-5 days if symptoms have not improved or sooner if symptoms worsen - Discussed red flags and need for immediate medical evaluation if any occur. - Discussed supportive care treatment with fluids, rest and analgesia. - Discussed expected course of illness Gisele Ansari APRN.[facility] Progress note 08-26-2022 Note Date & Type Note Facility 08-26-2022 Note HNO ID: [id number] Author: Ronald Keller APRN.GEOSPATIAL INFORMATION SCIENTIST Service: ? Author Type: Nurse Practitioner Type: Progress Notes Filed: 08/26/2022 1:17 PM Note Text: Subjective HPI Nontoxic-appearing female presents urgent care chief complaint back pain. Duration of symptoms 1 month. Associated symptoms lower to mid left-sided back pain. History of back pain this feels similar. Has not used any OTC medication use today. Denies any known injuries. Denies previous medical intervention for this. Denies any saddle anesthesia incontinence night sweats fevers or recent history of IV drug use. Denies any fever body aches chills productive cough chest pain shortness of breath pleuritic pain hemoptysis nausea vomiting abdominal pain change in bowel or bladder habits. Past medical history prescription medication use and allergies reviewed. .Patient presents with: Back Pain: Pt reported upper middle back pain, denied injury x1 mth History reviewed. No pertinent past medical history. History reviewed. No pertinent surgical history. ALLERGIES Patient has no known allergies. MEDICATIONS predniSONE (DELTASONE) 10 mg tablet Take 4 tablets by mouth once daily for 5 days. History reviewed. No pertinent family history. Social History Tobacco Use Smoking status: Unknown Smokeless tobacco: Never Substance Use Topics Alcohol use: Never Drug use: Yes Types: Marijuana Comment: medical card BP 132/68 Pulse 73 Temp 36.8 ?C (98.3 ?F) (Temporal) Resp 18 Wt 90.4 kg (199 lb 6.4 oz) LMP (LMP Unknown) SpO2 99% Review of Systems Constitutional: Negative for chills, fever and malaise/fatigue. HENT: Negative for congestion, ear discharge, ear pain, sinus pain and sore throat. Eyes: Negative for blurred vision, pain, discharge and redness. Respiratory: Negative for cough, hemoptysis, sputum production, shortness of breath, wheezing and stridor. Cardiovascular: Negative for chest pain. Gastrointestinal: Negative for abdominal pain, diarrhea, nausea and vomiting. Genitourinary: Negative. Musculoskeletal: Positive for back pain. Negative for falls and myalgias. Skin: Negative for itching and rash. Neurological: Negative for dizziness and headaches. Objective Physical Exam Constitutional: General: She is not in acute distress. Appearance: She is not diaphoretic. HENT: Head: Normocephalic. Jaw: No trismus, tenderness, swelling or pain on movement. Mouth/Throat: Mouth: Mucous membranes are moist. Pharynx: Oropharynx is clear. Uvula midline. No pharyngeal swelling, oropharyngeal exudate, posterior oropharyngeal erythema or uvula swelling. Eyes: Conjunctiva/sclera: Conjunctivae normal. Pupils: Pupils are equal, round, and reactive to light. Cardiovascular: Rate and Rhythm: Normal rate and regular rhythm. Heart sounds: Normal heart sounds. Pulmonary: Effort: Pulmonary effort is normal. No tachypnea, accessory muscle usage or respiratory distress. Breath sounds: Normal breath sounds. No stridor. No wheezing, rhonchi or rales. Abdominal: General: There is no distension. Palpations: Abdomen is soft. Tenderness: There is no abdominal tenderness. There is no guarding or rebound. Musculoskeletal: Cervical back: Normal range of motion and neck supple. No edema, erythema, rigidity or tenderness. No pain with movement. Normal range of motion. Thoracic back: Tenderness present. No swelling, signs of trauma or bony tenderness. Normal range of motion. Lumbar back: No swelling, edema, deformity, tenderness or bony tenderness. Normal range of motion. Negative right straight leg raise test and negative left straight leg raise test. Back: Comments: Pain with palpation highlighted area. No erythema edema. No rashes. No spinal tenderness. Able to stand on toes Lymphadenopathy: Cervical: No cervical adenopathy. Skin: General: Skin is warm and dry. Neurological: Mental Status: She is alert and oriented to person, place, and time. ASSESSMENT/PLAN: 1. Acute left-sided thoracic back pain - ICD9: 724.1, ICD10: M54.6 Patient diagnosed with left-sided back pain. Placed on prednisone burst. Do not take with NSAIDs. Patient was educated on supportive therapies. Patient will follow up with primary care provider in 2-3 days. Patient was instructed to immediately proceed to emergency room for any new, worsening, or symptoms lasting longer than anticipated. The patient's clinical presentation is otherwise unremarkable at this time. Based on exam and clinical finding, the patient is stable for discharge. Plan of care was discussed with patient. Patient verbalizes understanding and agrees to plan of care. This note was generated using [employer] software. It may contain errors in wording, punctuation, or spelling. Ronald Keller APRN.[facility] Summary Purpose Family History No Family History Records FoundNo Family History Records Found Advance Directives No Advanced Directives Records FoundNo Advanced Directives Records Found Additional Source Comments INFORMATION SOURCE (unrecogn ized section and content) DATE CREATED AUTHOR AUTHOR'S GRACIE ATION 12/03/2022 [facility] FOR RECORDS PERTAINING TO PATIENTS WHO ARE OR HAVE BEEN ENROLLED IN A CHEMICAL DEPENDENCY/SUBSTANCEABUSE PROGRAM, SOME INFORMATION MAY BE OMITTED. This clinical summary was aggregated from multiple sources. Caution should be exercised in using it in the provision of clinical care. This summary normalizes information from multiple sources, and as a consequence, information in this document may materially change the coding, format and clinical context of patient data. In addition, data may be omitted in some cases. CLINICAL DECISIONS SHOULD BE BASED ON THE PRIMARY CLINICAL RECORDS. [facility] [email or web address] [facility]. provides no warranty or guarantee of the accuracy or completeness of information in this document.
== END 2023-03-26 15:13 | disposition home or self-care (01) ==
LOC: ED 14:48
PROVIDERS: Emergency Provider Emergency Medicine; Visit Provider Emergency Medicine
DX: S20.20XA Contusion of thorax, unspecified, initial encounter (principal); F17.200 Nicotine dependence, unspecified, uncomplicated; X58.XXXA Exposure to other specified factors, initial encounter
CPT/HCPCS: 99282

== ENCOUNTER 2023-05-20 20:00 | Emergency (ER) | payer MEDICAID, SELFPAY ==
[2023-05-20 20:01] VITALS: BP 135/81; PULSE 94; RESP 20; TEMP 36.7; O2SAT 98; BMI 34.0
[2023-05-20 20:02] VITALS: BP 135/81; PULSE 94; RESP 20; TEMP 36.7; O2SAT 98
[2023-05-20] MEDS: Benzonatate 100 MG Capsule 200 MG PO (20:20)
[2023-05-20] MEDS: Ondansetron ODT 4 MG Tablet PO (20:21)
[2023-05-20 20:23] VITALS: BP 128/87; PULSE 74; RESP 18; TEMP 35.9; O2SAT 99
--- NOTE | 2023-05-20 20:23 | EX.ED.VIS.UR ---
HPI HPI - URI History of Present Illness Chief Complaint: Cold Sx Narrative Narrative: 43-year-old female presenting with viral symptoms. She has had subjective fevers, chills, body aches, headache. She also complains of cough which is dry. States her lungs burning when she coughs. She vomited a couple times today but states she just ate a bag of [employer] and this stayed down. She has been able to hold down some fluids as well. Patient states that she does have a friend who was sick. She is concerned she might have come down with something. ROS ROS ED Constitutional Constitutional ED: Reports chills, fever(s) and subjective; Denies sweats Eyes Eyes: Denies blurry vision or change in vision ENT ENT ED: Denies ear pain or sore throat Cardiovascular Cardiovascular: Denies chest pain, palpitations or racing heartbeat Respiratory/Chest Respiratory/Chest: Reports cough; Denies dyspnea or sputum Gastrointestinal Gastrointestinal: Reports nausea and vomiting; Denies abdominal pain, constipation or diarrhea Genitourinary Genitourinary ED: Denies dysuria, hematuria or urinary frequency Musculoskeletal Musculoskeletal: Denies arthralgias, myalgias or neck pain Integumentary Denies abscess, Abrasions or rash Neurologic Neurologic: Reports headache(s); Denies paresthesias or weakness Psychiatric Psychiatric: Denies anxiety, depression, suicidal ideation or suicidal thoughts Endocrine Endocrinology: Denies polydipsia or polyuria PFSH PFSH Medical History Anxiety Hx of hepatitis C Home Medications benzonatate 200 mg capsule 200 mg PO TID PRN cough #20 caps 05/20/23 [Rx Last Taken Unknown] ondansetron 4 mg disintegrating tablet 4 mg PO Q8H PRN PRN Nausea #20 tabs 05/20/23 [Rx Last Taken Unknown] Allergy/AdvReac Type Severity Reaction Status Date / Time No Known Allergies Allergy Verified 05/20/23 20:00 Surgical History H/O wrist surgery Social History household members: none Smoking Status: Current every day smoker tobacco type: cigarettes alcohol intake: current alcohol intake frequency: holidays/special occasions only EXAM Physical Exam Const Vital Signs: 05/20/23 20:01 05/20/23 20:02 05/20/23 20:23 Temperature 98.1 F 98.1 F Temperature Source Temporal Temporal Pulse Rate 94 94 Respiratory Rate 20 H 20 H Respiratory Effort Normal Respiratory Pattern Normal Blood Pressure 135/81 H 135/81 H Blood Pressure Mean 99 99 Pulse Ox 98 98 Positive well nourished General Appearance ED: NAD; Negative for pallor HEENT Reports moist mucous membranes normocephalic Eyes PERRL Neck no lymphadenopathy Resp normal respiratory effort and clear to auscultation bilaterally Auscultation: Negative for rales, rhonchi or wheezes Cardio Rate: regular rate Rhythm: regular rhythm GI non-tender Neuro oriented x3 and CN's II-XII intact bilaterally Sensorium / Orientation: alert Motor Exam: strength 5/5 throughout Psych mental status grossly normal Skin General Skin Exam: Negative for jaundice or pallor MDM MDM MDM Narrative Medical decision making narrative: Patient presenting with viral symptoms. She has had these for 3 days and she is outside the treatment window for influenza which is high on the list on the differential. Possible she could have COVID as well. She does not specifically request viral testing but does request medications. She will be given Zofran for nausea and Tessalon Perles for cough. She request a work note as she supposed to be at work tomorrow and give her 3 days off. Counseled her she will be sick for 3 to 5 days at least and possibly up to 7. Counseled to drink plenty of fluids. Impression: 1. Viral syndrome 2. Nausea/vomiting Lab Data Attestation: I reviewed the patient's lab results. Discharge Plan Triage Chief Complaint: Cold Sx ED Provider: Pete Forbes Dx/Rx/DC Orders Instructions: ED Influenza (Adult) Prescriptions: New ondansetron 4 mg tablet,disintegrating 4 mg PO Q8H PRN PRN (Reason: Nausea) Qty: 20 0RF benzonatate 200 mg capsule 200 mg PO TID PRN (Reason: cough) Qty: 20 0RF Stand Alone Forms: ED Work / School Excuse Primary Care Provider: Jessica Keller Referrals: Jessica Keller [Primary Care Provider] - Disposition Disposition: Home, Self Care
== END 2023-05-20 20:28 | disposition home or self-care (01) ==
LOC: ED 20:24
PROVIDERS: Emergency Provider Student in an Organized Health Care Education/Training Program; Visit Provider Student in an Organized Health Care Education/Training Program
DX: B34.9 Viral infection, unspecified (principal); R11.2 Nausea with vomiting, unspecified; F17.210 Nicotine dependence, cigarettes, uncomplicated
CPT/HCPCS: 99283

== ENCOUNTER → 2023-10-31 | Outpatient (CLI) | payer MEDICAID, SELFPAY ==
--- NOTE | 2023-10-31 08:39 | BI_ITS ---
MAMMOGRAPHY - BILATERAL DIAGNOSTIC REASON FOR EXAM: Female, 43 years old. 2 week history of left breast lump. Retroareolar ductal dilatation and discharge. PERTINENT HISTORY: Aunts with breast cancer. TECHNIQUE: Digital bilateral breast bety (3D mammographic acquisition) in the CC and MLO projections. 2-D mediolateral oblique (MLO) and craniocaudad (CC) views of both breasts were obtained. CAD: Full Field Digital Mammography with Computer Added Detection was performed. COMPARISON: Comparison is made with prior study dated January 12, 2023 and December 07, 2021. FINDINGS: Breast Composition: The breasts are heterogeneously dense, which may obscure small masses. There are no dominant masses or suspicious calcifications. Stable asymmetry of breast tissue with more breast tissue seen in the upper-outer quadrant of left breast as compared to the right side. Stable bilateral fat-containing axillary lymph nodes. No other significant abnormalities are identified. There has been no significant change since the prior study. BI/DIAG MAMM W/CAD, BILAT IMPRESSION: Stable bilateral diagnostic mammogram. With the patient''s history of a palpable lump in the left breast, targeted sonographic correlation recommended. ASSESSMENT CATEGORY: BIRADS Category 0: Incomplete. Need additional imaging evaluation. A letter regarding these results will be sent to the patient by the facility within 30 days. Approximately 10% of breast cancers are not detected by mammography. A normal mammogram should not delay biopsy of a clinically suspicious abnormality. Electronically Signed: Azar Fox MD at 10:27 EDT ,
--- NOTE | 2023-10-31 08:40 | US_ITS ---
STUDY: ULTRASOUND BREAST - LEFT REASON FOR EXAM: Female, 43 years old. Left breast lump. TECHNIQUE: Axial and longitudinal images of the LEFT breast were performed with a high resolution ultrasound transducer. # OF IMAGES: 18 COMPARISON: Comparison is made with prior mammogram done earlier today. FINDINGS: LEFT Breast: The palpable lump corresponds to a superficial 1.1 cm x 1.5 cm x 1 cm echogenic nodule suggestive of lipoma. This is at the 12:00 position of the breast at 1 cm from the nipple. US/Breast Limited Unilateral IMPRESSION: The palpable lump corresponds to a 1.1 cm x 1.5 cm x 1 cm echogenic nodule suggestive of a lipoma. ASSESSMENT CATEGORY: BIRADS Category 2: Benign. A letter regarding these results will be sent to the patient by the facility within 30 days. Electronically Signed: Azar Fox MD at 13:05 EDT ,
--- NOTE | 2023-10-31 09:52 | US_ITS ---
STUDY: SUPERFICIAL ULTRASOUND - REASON FOR EXAM: Female, 43 years old. PARA-UMBILICAL LUMP TECHNIQUE: A superficial ultrasound was performed with real-time and static disla-scale imaging. COMPARISON: None. FINDINGS: Multiple sonographic images acquired through the area of clinical interest in the periumbilical region. No sonographic abnormality identified. US/Abdomen Limited IMPRESSION: No sonographic abnormality in the area of clinical interest. Electronically Signed: Lorenzo Castañeda MD at 15:33 EDT ,
== END | disposition home or self-care (01) ==
LOC: OPBI 08:37
PROVIDERS: PCP Family Medicine; Referring Provider Family Medicine; Visit Provider Family Medicine
DX: R19.00 Intra-abdominal and pelvic swelling, mass and lump, unspecified site (principal); N63.20 Unspecified lump in the left breast, unspecified quadrant
CPT/HCPCS: 77062; 76642; 76705; 77066; G0279

== ENCOUNTER → 2024-01-16 | Outpatient (CLI) | payer MEDICAID, SELFPAY ==
[2024-01-16 17:05] LABS: Absolute Lymphocyte Count 2.78 X10^3/uL (0.83-4.51); Absolute Neutrophil Count 7.6 X10^3/uL (2.0-7.7); Basophil# 0.07 X10^3/uL; Basophil% 0.6 % (0-1); Eosinophil# 0.23 X10^3/uL; Hematocrit 40.3 % (37-47); Hemoglobin 13.5 g/dL (12.0-15.0); Lymphocyte # 2.78 X10^3/ul (0.83-4.51); Lymphocyte % 24.4 % (19-41); Mean Corp Hgb Conc 33.5 g/dL (32-36); Mean Corpuscular Hgb 29.5 pg (27.0-32.0); Mean Platelet Vol. 9.8 fl (6.2-12.0); Monocyte# 0.63 X10^3/uL; Monocyte% 5.5 % (0-10); NRBC Flagged by Analyzer 0 % (0-5); Neutrophil # 7.63 X10^3/uL (2.7-7.7); Neutrophil % 67.1 % (47-70); Platelet Count 343 K/mm3 (150-450); RBC Distribution Width CV 12.7 % (11.6-14.6); RBC Distribution Width SD 41.2 fl (35.1-43.9); Red Blood Count 4.58 M/mm3 (4.2-5.4); White Blood Count 11.4 K/mm3 (4.4-11.0)
[2024-01-16 17:26] LABS: ALB/GLOB Ratio 1.1 RATIO (0.9-2.4); AST(SGOT) 18 U/L (15-37); Alanine Aminotransfer ALT/SGPT 26 U/L (13-56); Albumin, Serum 3.7 g/dL (3.2-5.0); Alkaline Phosphatase 94 U/L (45-117); Anion Gap 5 (5-15); BUN 13 mg/dL (7-18); BUN/Creat Ratio 19.5 RATIO (10-20); Calcium,Total 9.3 mg/dL (8.5-10.1); Chloride 106 mmol/L (98-107); Cholesterol 181 mg/dL (200); Creatinine, Serum 0.66 mg/dL (0.55-1.02); EST Glomerular Filtration Rate 102 mL/min (>60); Est Glom Filt Rate - Afr Amer 124 mL/min (>60); Globulin 3.4 g/dL (2.2-4.2); Glucose 87 mg/dL (74-106); High Density Lipoprotein 77 mg/dL; Protein, Total 7.1 g/dL (6.4-8.2); Sodium Level 138 mmol/L (136-145); Triglycerides 81 mg/dL; Very Low Density Lipoprotein 16 mg/dL (5-40)
[2024-01-16 17:36] LABS: Hemoglobin A1c 5.7 % (3.8-5.6)
[2024-01-16 17:44] LABS: HIV - WCH Non-Reactive (Nonreactive); Syphilis Antibodies Non-reactive; Vitamin D,25 Hydroxy 35.2 ng/mL
[2024-01-21 19:07] LABS: HEPATITIS B SURFACE AG Negative (Negative); Hep B Surface Antibodies Non Reactive (.); Hepatitis B Core Ab Total Negative (Negative); Hepatitis C Ab Reactive (Non Reactive)
[2024-01-29 11:09] LABS: Age Gdln ACOG Testing 30-65 (.); HPV APTIMA, High Risk Negative (Negative)
[2024-01-29 12:51] LABS: HPV Reflexed? YES, CHARGE PATIENT
== END | disposition home or self-care (01) ==
PROVIDERS: PCP Family Medicine; Visit Provider Nurse Practitioner Family
DX: Z12.4 Encounter for screening for malignant neoplasm of cervix (principal); Z11.3 Encounter for screening for infections with a predominantly sexual mode of transmission; E55.9 Vitamin D deficiency, unspecified
CPT/HCPCS: 36415; 80053; 80061; 82306; 83036; 84443; 85025; 86703; 86704; 86705; 86706; 86707; 86780; 86803; 87340; 87350; 87624; 88175; G0145

== ENCOUNTER → 2024-11-29 | Outpatient (CLI) | payer MEDICAID, SELFPAY ==
--- OUTSIDE RECORDS SUMMARY | 2024-11-29 08:42 | XMS RPT_ITS | CCD ---
Author Organization [facility] Care Team Providers Care Outreach Associate Name Role Phone Dr. Jessica Keller Primary Care Provider Arturo MAINTENANCE MECHANIC TELEPHONE, MAINTENANCE MECHANIC TELEPHONE-C Antonella Referring Provider Arturo MAINTENANCE MECHANIC TELEPHONE, MAINTENANCE MECHANIC TELEPHONE-C Antonella Other Provider Dr. Harvinder Charles Attending Provider Dr. Jessica Keller Referring Provider Dr. Gilberto Ramirez Attending Provider Arturo MAINTENANCE MECHANIC TELEPHONE, Antonella Unavailable [facility], Jessica Keller Primary Care Provider Un available SHILPI TAVARES Attending Unavailable Arturo Antonella Snider Attending Unavailtramaine Taylor [facility] Un[facility] Ronald Rodriguez Referring Unavailable Ronald Rodriguez Attending Unavailable Claudia [facility] Primary [facility] Unavailable Medications Current Medications Medication Drug Class(es) Dates Sig (Normalized) Sig (Original) [id number] 200 actuat albuterol 0.09 mg/actuat metered dose inhaler (2 sources) beta2-Adrenergic Agonist Start: 01-15-2024 take 2 puff(s) by mouth every four to six hours as needed for cough albuterol HFA (PROVENTIL HFA, VENTOLIN HFA) 90 mcg/actuation inhaler INHALE 2 PUFFS BY MOUTH and into the lungs 4-6 hours as needed for shortness OF breath/cough 01/15/2024 Active benzonatate 200 mg oral capsule (1 source) Non-narcotic Antitussive Start: 05-20-2023 take 200 mg by mouth three times daily Benzonatate Active 200 MG PO THREE TIMES A DAY May 20, 2023 12:00am 24 hr buPROPion hydrochloride 150 mg extended release oral tablet (2 sources) Aminoketone Start: 01-15-2024 take 1 tablet by mouth once daily, then take 2 tablets by mouth once daily buPROPion XL (WELLBUTRIN XL) 150 mg 24 hr tablet TAKE 1 TABLET BY MOUTH ONCE DAILY for 1 week, then increase to 2 tablets once daily 01/15/2024 Active cephalexin 500 mg oral capsule (2 sources) Cephalosporin Antibacterial Start: 02-13-2022 take 500 mg by mouth every twelve hours Cephalexin Active 500 MG PO EVERY 12 HOURS February 13, 2022 12:00am cyclobenzaprine hydrochloride 10 mg oral tablet (2 sources) Muscle Relaxant Start: 05-08-2021 take 10 mg by mouth three times daily Cyclobenzaprine Active 10 MG PO THREE TIMES A DAY May 08, 2021 6:42pm dextromethorphan hydrobromide 3 mg/ml / promethazine hydrochloride 1.25 mg/ml oral solution (1 source) Phenothiazine, Uncompetitive H-zrckym-L-asparta te Receptor Antagonist, Sigma-1 Agonist Start: 03-11-2024 take 5 mL by mouth four times daily as needed Promethazine-DM (PHENERGAN-DM) 6.25-15 mg/5 mL syrup Indications: Acute cough Take 5 mL by mouth four times a day as needed. 473 mL 03/11/2024 Active ibuprofen 600 mg oral tablet (2 sources) Nonsteroidal Anti-inflammatory Drug Start: 09-20-2022 take 1 tablet by mouth every eight hours as needed for pain ibuprofen (MOTRIN) 600 mg tablet Indications: Groin pain, right Take 1 tablet by mouth every 8 hours as needed for pain. 60 tablet 09/20/2022 Active naproxen 500 mg oral tablet (19 sources) Nonsteroidal Anti-inflammatory Drug Start: 02-13-2022 take 500 mg by mouth twice daily as needed Naproxen Active 500 MG PO TWICE DAILY NEEDED February 13, 2022 12:00am Start: 01-03-2022 take 500 mg by mouth twice daily Naproxen Active 500 MG PO TWICE A DAY January 03, 2022 12:00am Start: 05-08-2021 take 500 mg by mouth twice daily as needed Naproxen Active 500 MG PO TWICE DAILY NEEDED May 08, 2021 6:42pm Start: 09-29-2019 End: 10-20-2019 take 500 mg by mouth twice daily as needed Naproxen Discontinued 500 MG PO TWICE DAILY NEEDED September 29, 2019 12:00am October 20, 2019 1:36pm [place] (Nk) (1 source) Start: 03-12-2023 [place] (Nk) Active March 12, 2023 12:00am OLANZapine 2.5 mg oral tablet (2 sources) Atypical Antipsychotic Start: 01-31-2024 take 0.5 tablet by mouth at bedtime OLANZapine (ZYPREXA) 2.5 mg tablet take 1/2 tab by mouth at bedtime 01/31/2024 Active ondansetron 4 mg disintegrating oral tablet (4 sources) Serotonin-3 Receptor Antagonist Start: 05-20-2023 take 4 mg by mouth every eight hours as needed Ondansetron Active 4 MG PO EVERY 8 HOURS NEEDED May 20, 2023 12:00am Start: 08-29-2021 take 4 mg by mouth e very eight hours Ondansetron Active 4 MG PO Q8H August 29, 2021 12:00am oxymetazoline hydrochloride 0.5 mg/ml nasal spray (1 source) Start: 03-11-2024 End: 03-16-2024 oxymetazoline (AFRIN, OXYMETAZOLINE,) 0.05 % nasal spray Indications: Acute cough Use 2 Sprays in each nostril two times a day for 5 days. 22 mL 03/11/2024 03/16/2024 Active penicillin v potassium 500 mg oral tablet (1 source) Start: 01-03-2022 take 500 mg by mouth four times daily Penicillin V Potassium Active 500 MG PO 4 TIMES DAILY January 03, 2022 12:00am predniSONE 10 mg oral tablet (3 sources) Start: 03-10-2024 End: 03-19-2024 predniSONE (DELTASONE) 10 mg tablet Take 4 tabs daily for 3 days, then 2 tabs daily for 3 days, then 1 tab daily for 3 days with food. 21 tablet 03/10/2024 03/19/2024 Active Start: 07-12-2021 take 4 tablets by mo uth once daily, then take 3 tablets by mouth once daily, then take 2 tablets by mouth once daily, then take 1 tablet by mouth once daily Prednisone Active 10 MG PO DIRECTED July 12, 2021 7:54pm Take 4 tablets daily for 3 days, then 3 daily for 3 days, then 2 daily for 3 days, then 1 a day for 3 days Completed/Discontinued Medications Medication Drug Class(es) Dates Sig (Normalized) Sig (Original) methylPREDNISolone acetate 40 mg/ml injectable suspension (2 sources) Corticosteroid Start: 01-26-2020 End: 01-26-2020 Depo-Medrol (methylprednisolon e acetate) 40 mg/mL suspension for injection Discontinued 40 MG INTRAARTIC ONCE 1 January 26, 2020 3:38pm January 26, 2020 3:56pm Problems Active Problems Problem Classification Problem Date Documented Date Episodic/Chronic Disorders of teeth and jaw (20 sources) Toothache; Translations: [Other specified disorders of teeth and supporting structures] 09-14-2019 Episodic Fracture of lower limb (7 sources) Closed fracture of great toe; Translations: [Displaced unspecified fracture of left great toe, initial encounter for closed fracture] 02-21-2022 Episodic Inflammatory diseases of female pelvic organs (14 sources) Bacterial vaginosis; Translations: [Acute vaginitis] 10-12-2020 Episodic Mood disorders (14 sources) Depressive disorder; Translations: [Depression] 09-13-2019 Chronic Nonspecific chest pain (14 sources) Musculoskeletal chest pain; Translations: [Other chest pain] 07-01-2019 Episodic Other connective tissue disease (12 sources) Tendinitis of wrist; Translations: [Other enthesopathies, not elsewhere classified] 07-20-2021 Episodic Other connective tissue disease (1 source) Tendonitis of left wrist; Translations: [Other enthesopathies, not elsewhere classified] 07-20-2021 Episodic Other connective tissue disease (1 source) Soft tissue disorder, unspecified; Translations: [Soft tissue disorder, unspecified] Onset: 11-20-2024 Episodic Other connective tissue disease (1 source) Pain in left foot; Translations: [Pain in left foot] Onset: 11-20-2024 Episodic Other injuries and conditions due to external causes (9 sources) Injury of knee; Translations: [Unspecified injury of right lower leg, initial encounter] 09-30-2019 Episodic Other injuries and conditions due to external causes (5 sources) Injury of right knee; Translations: [Unspecified injury of right lower leg, initial encounter] 09-30-2019 Episodic Other lower respiratory disease (1 source) Cough; Translations: [Acute cough] 03-11-2024 Episodic Other nervous system disorders (2 sources) Carpal tunnel syndrome, right upper limb; Translations: [Carpal tunnel syndrome] 03-12-2023 Chronic Other skin disorders (1 source) Eruption; Translations: [Rash and other nonspecific skin eruption] 03-10-2024 Episodic Other upper respiratory infections (1 source) Acute sinusitis, unspecified; Translations: [Acute non-recurrent sinusitis, unspecified location] Onset: 11-13-2024 Episodic Spondylosis; intervertebral disc disorders; other back problems (14 sources) Backache; Translations: [Dorsalgia, unspecified] 05-16-2021 Episodic Sprains and strains (6 sources) Sprain of ankle; Translations: [Sprain of unspecified ligament of left ankle, initial encounter] 04-10-2022 Episodic Superficial injury; contusion (8 sources) Contusion of foot; Translations: [Contusion of left foot, initial encounter] 04-10-2022 Episodic Past or Other Problems Problem Classification Problem Date Documented Da te Episodic/Chronic Other screening for suspected conditions (not mental disorders or infectious disease) (1 source) Encounter for screening for malignant neoplasm of cervix; Translations: [Encounter for screening for malignant neoplasm of cervix] Onset: 02-12-2024 Episodic Results Test Name Value Interpretation Reference Range Facility [facility] 11-13-2024 CNOV Office Visit (WOUCA) JUDITH CASTILLO ([id number]) 1980 F Date Time Provider Department 11/13/24 6:00 PM SHILPI TAVARES During your visit today, we recorded the following information about you: Temperature Pulse Respiration Blood pressure 97.4 degrees 96/minute 18/minute 133/85 Weight 85.6 kg Shilpi Tavares PA-C 11/13/2024 6:31 PM Signed [facility] Subjective Judith Castillo is a 44 year old female. No chief complaint on file. Patient is a 44-year-old female who complains of ongoing and worsening congestion, sinus pressure, ear fullness and decreased hearing acuity that she has been experiencing for the past 1-1/2 weeks. Patient reports mild throat irritation and states she has developed only a slight cough. Patient reports denies fever, chills or myalgia. Patient is currently taking no mvrq-hkr-[id number] medications for treatment of her symptoms. Review of Systems HENT: Positive for congestion, ear pain, hearing loss, postnasal drip and sinus pressure. All other systems reviewed and are negative. Objective LMP (LMP Unknown) Physical Exam Vitals and nursing note reviewed. Constitutional: Appearance: Normal appearance. She is normal weight. HENT: Head: Normocephalic and atraumatic. Right Ear: Tympanic membrane, ear canal and external ear normal. Left Ear: Tympanic membrane, ear canal and external ear normal. Nose: Nose normal. Mouth/Throat: Mouth: Mucous membranes are moist. Pharynx: Oropharynx is clear. Eyes: Extraocular Movements: Extraocular movements intact. Conjunctiva/sclera: Conjunctivae normal. Pupils: Pupils are equal, round, and reactive to light. Cardiovascular: Rate and Rhythm: Normal rate and regular rhythm. Pulses: Normal pulses. Heart sounds: Normal heart sounds. Pulmonary: Effort: Pulmonary effort is normal. Breath sounds: Normal breath sounds. Musculoskeletal: Cervical back: Normal range of motion and neck supple. Skin: General: Skin is warm and dry. Capillary Refill: Capillary refill takes less than 2 seconds. Neurological: General: No focal deficit present. Mental Status: She is alert and oriented to person, place, and time. Psychiatric: Mood and Affect: Mood normal. Behavior: Behavior normal. Thought Content: Thought content normal. Judgment: Judgment normal. MDM Physical exam findings as noted above. Patient was provided with prescriptions for Augmentin 875-125 mg and Sudafed 60 mg. Supportive care instructions were discussed and the patient verbalizes good understanding of same. CLINICAL IMPRESSION: Acute Sinusitis ASSESSMENT/PLAN: 1. Acute non-recurrent sinusitis, unspecified location - ICD9: 461.9, ICD10: J01.90 - AMOXICILLIN 875 MG-POTASSIUM CLAVULANATE 125 MG TABLET - PSEUDOEPHEDRINE 60 MG TABLET MDM Risk of Complications, Morbidity, and/or Mortality Presenting problems: low Diagnostic procedures: low Management options: meaghan Tavares PA-C Allergies As of Date: 11/13/2024 (No Known Allergies) Date Reviewed: 11/13/2024 Reviewed by: Meredith Daugherty MA - Fully Assessed Reason for Visit: Ear Problem [38] Cmt: Bilateral x1 week, R worse Primary Visit Diagnosis:Acute non-recurrent sinusitis, unspecified location [J01.90] Order(s):amoxicillin- clavulanate potassium (AUGMENTIN) 875-125 mg per tabletTake 1 tablet by mouth two times a day for 10 days.Disp: 20 tabletRfl: 0 pseudoephedrine (SUDOGEST) 60 mg tabletTake 1 tablet by mouth every 6 hours as needed for up to 10 days.Disp: 40 tabletRfl: 0 Prescriptions as of 11/13/2024 - amoxicillin-clavulana te potassium (AUGMENTIN) 875-125 mg per tablet Take 1 tablet by mouth two times a day for 10 days. - pseudoephedrine (SUDOGEST) 60 mg tablet Take 1 tablet by mouth every 6 hours as needed for up to 10 days. - Promethazine-DM (PHENERGAN-DM) 6.25-15 mg/5 mL syrup Take 5 mL by mouth four times a day as needed. - buPROPion XL (WELLBUTRIN XL) 150 mg 24 hr tablet TAKE 1 TABLET BY MOUTH ONCE DAILY for 1 week, then increase to 2 tablets once daily - OLANZapine (ZYPREXA) 2.5 mg tablet take 1/2 tab by mouth at bedtime - albuterol HFA (PROVENTIL HFA, VENTOLIN HFA) 90 mcg/actuation inhaler INHALE 2 PUFFS BY MOUTH and into the lungs 4-6 hours as needed for shortness OF breath/cough - ibuprofen (MOTRIN) 600 mg tablet Take 1 tablet by mouth every 8 hours as needed for pain. Problem List As Of Date: 11/13/2024 (None) Prescriptions ordered this encounter Disp Refills Start End AMOXICILLIN 875 MG-POTASSIUM CLAVULA* 20 t* 0 11/13/2024 11/23/2024 Route: PO Sig: Take 1 tablet by mouth two times a day for 10 days. PSEUDOEPHEDRINE 60 MG TABLET 40 t* 0 11/13/2024 11/23/2024 Route: PO Sig: Take 1 tablet by mouth every 6 hours as needed for up to 10 days. Level of Service: OFFICE/OUTPATIENT ESTABLISHED LOW [facility] 20 MIN [[id number]] Encounter Number: [id number] (more content not included)... Normal [facility] CNOVon 03-11-2024 CNOV Office Visit (UCWSTR ) JUDITH CASTILLO ([id number]) 1980 F Date Time Provider Department 03/11/24 12:15 PM STAS GARCIA WSTR During your visit today, we recorded the following information about you: Temperature Pulse Respiration Blood pressure 98 degrees 88/minute 16/minute 132/80 Weight 86.7 kg Stas Garcia APRN.MOTOR GENERATOR SET OPERATOR 03/11/2024 12:01 PM Signed This note was created using [employer]. Subjective Judith Castillo is a 43 year old female. HPI by patient: Judith is a 3 year old presenting to the office with the complaint of cough and MITCHELL. Was seen yesterday for rash that she had for 3 days and mentioned the cough and MITCHELL which started 2 days ago. Now wants seen for cough and has had to hold her head when she coughs RUnny nose, PND and has been sweating Started approximately 2 days ago. Denies any other concerns Covid Immunization Dates Overdue - Covid-19 Vaccine ( season) Never done No completion, postpone, frequency change, or communication history exists for this topic. Sick contacts: yes friend is also sick Smoking history/second hand smoke: yes OTC nothing No antibiotic use in the last 60 days. ALLERGIES No Known Allergies No family history on file. Social History Tobacco Use Smoking status: Unknown Smokeless tobacco: Never Alcohol use: Never Drug use: Yes Types: Marijuana Comment: medical card Review of Systems Constitutional: Negative for chills and fever. HENT: Positive for congestion, postnasal drip and rhinorrhea. Negative for ear pain and sore throat. Respiratory: Positive for cough and shortness of breath. Negative for chest tightness and wheezing. Cardiovascular: Negative for chest pain. Allergic/Immunologic: Negative for immunocompromised state. Hematological: Negative for adenopathy. Objective BP 132/80 Pulse 88 Temp 36.7 ?C (98 ?F) Resp 16 Wt 86.7 kg (191 lb 2.2 oz) LMP (LMP Unknown) SpO2 97% Physical Exam Vitals and nursing note reviewed. HENT: Right Ear: Tympanic membrane and ear canal normal. Left Ear: Tympanic membrane and ear canal normal. Nose: Congestion and rhinorrhea present. Mouth/Throat: Pharynx: Uvula midline. No oropharyngeal exudate or posterior oropharyngeal erythema. Cardiovascular: Rate and Rhythm: Normal rate and regular rhythm. Heart sounds: Normal heart sounds. Pulmonary: Effort: Pulmonary effort is normal. No respiratory distress. Breath sounds: No stridor. Wheezing (In RLL and LLL) present. No rhonchi or rales. Chest: Chest wall: No tenderness. Lymphadenopathy: Cervical: No cervical adenopathy. Skin: General: Skin is warm and dry. Neurological: Mental Status: She is alert and oriented to person, place, and time. Assessment and Plan ASSESSMENT/PLAN: 1. Acute cough - ICD9: 786.2, ICD10: R05.1 - COVID AND INFLUENZA A/B AND RSV PCR, ROUTINE - PROMETHAZINE-DM 6.25 MG-15 MG/5 ML ORAL SYRUP - XR CHEST 2V FRONTAL/LAT - OXYMETAZOLINE 0.05 % NASAL SPRAY Stas Garcia APRN.CNP Medical Decision Making: Problems: Moderate: New problem with uncertain prognosis Data: Unique test(s) ordered: 3+ Risk: Moderate: Drug management Medical Decision Making Level: 4 - Moderate Stas Garcia APRN.CNP 03/11/2024 11:58 AM Signed UPPER RESPIRATORY INFECTIONS Most cases are caused by viruses and most cases are mild, temporary, and harmless. Symptoms can last 2 to 3 weeks and can include: nasal congestion, sore throat, coughing, muscles aches, headaches, nausea, diarrhea, fatigue and fever. Rhinovirus, RSV, Covid, Influenza A and B, Parainfluenza are just a few COMMON respiratory viruses that cause sinus symptoms and cough. Antibiotics do NOT treat viruses. Taking 1 round of antibiotics can destroy your gut normal milka (good bacteria) for up to 6 months. This can affect your weight, skin, digestion, mental health and immune system. 1. Drink plenty of fluids. 2. Get lots of rest. 3. Avoid dehydrants such as caffeine and alcohol. 4. Nasal saline is an effective decongestant and be used frequently throughout the day. 5. To loosen phlegm and help coughing, drink plenty of fluids and using a humidifier. 6. For sore throats, it is ok to use cough drops, throat sprays, or gargling warm salt water. 7. Always cover your mouth when you cough or sneeze, and wash your hands frequently. Avoid crowded areas like shopping centers, movies while you are sick so you don't grape picker a different virus, or infect others. 8. Avoid exposure to cigarettes or fumes. 9. Avoid irritants such as potpourri, dust, perfumes, scented candles and scented sprays 10. Air conditioning is an effective allergen and irritant avoidance strategy in the spring, summer and fall. 11. Honey is an e (more content not included)... Normal [facility] COVID AND INFLUENZA A/B AND RSV PCR, ROUTINEon 03-11-2024 SARS-CoV-2 (COVID-19) RNA CHERRY+probe Ql (Unsp spec) SARS-COV-2 (AGENT OF COVID-19) RNA: Not detected INFLUENZA A RNA: Not detected INFLUENZA B RNA: Not detected RESPIRATORY SYNCYTIAL VIRUS (RSV) RNA: Not detected Normal [facility] Comment on above: Performed By: #### C VFLRS #### [facility] CLIA [id number] [address] [place] [address] OF [facility] CNOVon 03-10-2024 CNOV Office Visit (UCWSTR ) JUDITH CASTILLO ([id number]) 1980 F Date Time Provider Department 03/10/24 4:00 PM JORDEN GARCIA [facility] During your visit today, we recorded the following information about you: Temperature Pulse Respiration Blood pressure 98.1 degrees 82/minute 16/minute 124/78 Weight 88.1 kg Jorden Garcia PA 03/10/2024 3:28 PM Signed This note was created using [employer]. Like a Man.ter. Subjective Judith Castillo is a 43 year old female. HPI 43-year-old female presents for rash. Patient states she noticed rash a few days ago. It is on the back of her neck, arms, face. She states it is very itchy. She denies any fevers. She has had some chills and cough recently. Nobody else at home has similar rash. No new lotions, detergents, body washes, medications. She has taken Benadryl which did help with the itching. No other complaint. No past medical history on file. No past surgical history on file. ALLERGIES Patient has no known allergies. MEDICATIONS buPROPion XL (WELLBUTRIN XL) 150 mg 24 hr tablet TAKE 1 TABLET BY MOUTH ONCE DAILY for 1 week, then increase to 2 tablets once daily OLANZapine (ZYPREXA) 2.5 mg tablet take 1/2 tab by mouth at bedtime albuterol HFA (PROVENTIL HFA, VENTOLIN HFA) 90 mcg/actuation inhaler INHALE 2 PUFFS BY MOUTH and into the lungs 4-6 hours as needed for shortness OF breath/cough predniSONE (DELTASONE) 10 mg tablet Take 4 tabs daily for 3 days, then 2 tabs daily for 3 days, then 1 tab daily for 3 days with food. ibuprofen (MOTRIN) 600 mg tablet Take 1 tablet by mouth every 8 hours as needed for pain. (Patient not taking: Reported on 03/10/2024) No family history on file. Social History Tobacco Use Smoking status: Unknown Smokeless tobacco: Never Substance Use Topics Alcohol use: Never Drug use: Yes Types: Marijuana Comment: medical card Review of Systems Constitutional: Negative for chills and fever. HENT: Negative for congestion, ear pain and sore throat. Respiratory: Negative for cough and shortness of breath. Cardiovascular: Negative for chest pain. Gastrointestinal: Negative for diarrhea and vomiting. Skin: Positive for rash. Objective BP 124/78 Pulse 82 Temp 36.7 ?C (98.1 ?F) Resp 16 Wt 88.1 kg (194 lb 3.6 oz) LMP (LMP Unknown) SpO2 97% Physical Exam Vitals and nursing note reviewed. Constitutional: General: She is not in acute distress. Appearance: Normal appearance. She is not toxic-appearing. HENT: Nose: Nose normal. Mouth/Throat: Mouth: Mucous membranes are moist. Eyes: Conjunctiva/sclera: Conjunctivae normal. Cardiovascular: Rate and Rhythm: Normal rate and regular rhythm. Pulmonary: Effort: Pulmonary effort is normal. Breath sounds: Normal breath sounds. Skin: General: Skin is warm and dry. Findings: Rash present. Comments: Slightly raised erythematous bumps to back of neck, arms. No vesicular lesions. No lymphatic streaking. No abscess or fluctuance. Neurological: Mental Status: She is alert. Assessment and Plan ASSESSMENT/PLAN: 1. Rash - ICD9: 782.1, ICD10: R21 -Appears consistent with contact dermatitis. -Rx for prednisone taper -May continue Benadryl -Follow-up if no improvement in symptoms Diagnosis and treatment plan were discussed and questions were answered to the patient's satisfaction. Pt acknowledged understanding of concepts and follow up plan. Specific signs and symptoms that would indicate the need for higher level of care were discussed in detail warranting prompt ER evaluation. ZAID Butcher Allergies As of Date: 03/10/2024 (No Known Allergies) Date Reviewed: 03/10/2024 Reviewed by: Kerrie Ennis MA - Fully Assessed Reason for Visit: Rash [1087] Cmt: all over, itching x 2-3 days, cough, headache, chills x 3 days Primary Visit Diagnosis:Rash [R21] Order(s):predniSONE (DELTASONE) 10 mg tabletTake 4 tabs daily for 3 days, then 2 tabs daily for 3 days, then 1 tab daily for 3 days with food.Disp: 21 tabletRfl: 0 Prescriptions as of 03/10/2024 - buPROPion XL (WELLBUTRIN XL) 150 mg 24 hr tablet TAKE 1 TABLET BY MOUTH ONCE DAILY for 1 week, then increase to 2 tablets once daily - OLANZapine (ZYPREXA) 2.5 mg tablet take 1/2 tab by mouth at bedtime - albuterol HFA (PROVENTIL HFA, VENTOLIN HFA) 90 mcg/actuation inhaler INHALE 2 PUFFS BY MOUTH and into the lungs 4-6 hours as needed for shortness OF breath/cough - predniSONE (DELTASONE) 10 mg tablet Take 4 tabs daily for 3 days, then 2 tabs daily for 3 days, then 1 tab daily for 3 days with food. - ibuprofen (MOTRIN) 600 mg tablet Take 1 tablet by mouth every 8 hours as needed for pain. Problem List As Of Date: 03/10/2024 (None) Prescriptions ordered this encounter Disp Refills Start End PREDNISONE 10 MG TABLET 21 t* 0 03/10/2024 03/19/2024 Sig: Take 4 tabs daily for 3 days, then 2 tab (more content not included)... Normal [facility] PAP IG w/Reflex HPV GDLNon 1 03-31-2023 ADEQ Comment Normal . [facility] Comment on above: Order Comment: Speci men Comment: [id number] Comment: Source.............CervixSpecimen Comment: Other..............OtherSpecimen Comment: No. of containers..01 ThinPrep Vial Result Comment: Sati sfactory for evaluation. Endocervical and/or squamous metaplastic cells (endocervical component) are present. Performed By: #### L 501.9985, L501.9520, L506.1000, L500.4100, L3000.0800, L3890.6005, L500.4050, L100.0100, L509.8000 #### [facility] [address] [place], [place], [id number] Age Gdln ACOG T 30-65 Normal . [facility] Comment on above: Order Comment: Speci men Comment: [id number] Comment: Source.............CervixSpecimen Comment: Other..............OtherSpecimen Comment: No. of containers..01 ThinPrep Vial Performed By: #### L 501.9985, L501.9520, L506.1000, L500.4100, L3000.0800, L3890.6005, L500.4050, L100.0100, L509.8000 #### [facility] [address] [place], [place], [id number] COMM . Normal . [facility] Comment on above: Order Comment: Speci men Comment: [id number] Comment: Source.............CervixSpecimen Comment: Other..............OtherSpecimen Comment: No. of containers..01 ThinPrep Vial Performed By: #### L 501.9985, L501.9520, L506.1000, L500.4100, L3000.0800, L3890.6005, L500.4050, L100.0100, L509.8000 #### [facility] [address] [place], [place], [address] COMMENT Comment Normal . [facility] Comment on above: Order Comment: Speci men Comment: [id number] Comment: Source.............CervixSpecimen Comment: Other..............OtherSpecimen Comment: No. of containers..01 ThinPrep Vial Result Comment: This liquid based ThinPrep(R) pap test was screened with the use of an image guided system. Performed By: #### L 501.9985, L501.9520, L506.1000, L500.4100, L3000.0800, L3890.6005, L500.4050, L100.0100, L509.8000 #### [facility] [address] [place], [place], [id number] DIAG Comment Normal . [facility] Comment on above: Order Comment: Speci men Comment: [id number] Comment: Source.............CervixSpecimen Comment: Other..............OtherSpecimen Comment: No. of containers..01 ThinPrep Vial Result Comment: NEGA TIVE FOR INTRAEPITHELIAL LESION OR MALIGNANCY. THIS SPECIMEN WAS RESCREENED PART OF OUR TALENT ENGINEER PROGRAM. Performed By: #### L 501.9985, L501.9520, L506.1000, L500.4100, L3000.0800, L3890.6005, L500.4050, L100.0100, L509.8000 #### [facility] [address] [place], [address] HPV APTIMA, HR Negative Normal Negative [facility] Comment on above: Order Comment: Speci men Comment: [id number] Comment: Source.............CervixSpecimen Comment: Other..............OtherSpecimen Comment: No. of containers..01 ThinPrep Vial Result Comment: This nucleic acid amplification test detects fourteen high- risk HPV types (16,18,31,33,35,39,45,51,52,56,58,59,66,68) without differentiation. Performed By: #### L 501.9985, L501.9520, L506.1000, L500.4100, L3000.0800, L3890.6005, L500.4050, L100.0100, L509.8000 #### [facility] [address] [place], [place], [address] HPV Letha Rfx Comment Normal . [facility] Comment on above: Order Comment: Speci men Comment: [id number] Comment: Source.............CervixSpecimen Comment: Other..............OtherSpecimen Comment: No. of containers..01 ThinPrep Vial Result Comment: Crit erdk not met, HPV Genotype not performed. Performed at: =[address] [id number] [employer] Member: Yana Mendoza MD, Phone: [phone] Performed at: [address] [id number] [employer] Member: Yana Mendoza MD, Phone: [phone] Performed at: [address] [id number] [employer] Member: Bear Santana PhD, Phone: [phone] Performed By: #### L 501.9985, L501.9520, L506.1000, L500.4100, L3000.0800, L3890.6005, L500.4050, L100.0100, L509.8000 #### [facility] [address] [place], [place], [id number] PAPSMR Comment Normal . [facility] Comment on above: Order Comment: Speci men Comment: [id number] Comment: Source.............CervixSpecimen Comment: Other..............OtherSpecimen Comment: No. of containers..01 ThinPrep Vial Result Comment: The Pap smear is a screening test designed to aid in the detection of premalignant and malignant conditions of the uterine cervix. It is not a diagnostic procedure and should not be used as the sole means of detecting cervical cancer. Both false-positive and false-negative reports do occur. Performed By: #### L 501.9985, L501.9520, L506.1000, L500.4100, L3000.0800, L3890.6005, L500.4050, L100.0100, L509.8000 #### [facility] [address] [place], [place], [id number] PERFORM Comment Normal . [facility] Comment on above: Order Comment: Speci men Comment: [id number] Comment: Source.............CervixSpecimen Comment: Other..............OtherSpecimen Comment: No. of containers..01 ThinPrep Vial Result Comment: Tracey Monique, Machine Brush Maker (ASCP) Performed By: #### L 501.9985, L501.9520, L506.1000, L500.4100, L3000.0800, L3890.6005, L500.4050, L100.0100, L509.8000 #### [facility] [address] [place], [place], [id number] QC REV Comment Normal . [facility] Comment on above: Order Comment: Speci men Comment: [id number] Comment: Source.............CervixSpecimen Comment: Other..............OtherSpecimen Comment: No. of containers..01 ThinPrep Vial Result Comment: Shira Florence, Machine Brush Maker (ASCP) Performed By: #### L 501.9985, L501.9520, L506.1000, L500.4100, L3000.0800, L3890.6005, L500.4050, L100.0100, L509.8000 #### [facility] [address] [place], [place], [id number] Hepatitis B/C Profile VIIIon 01-21-2024 HEP B CORE,TOT Negative Normal Negative [facility] Comment on above: Performed By: #### L 501.9985, L501.9520, L506.1000, L500.4100, L3000.0800, L3890.6005, L500.4050, L100.0100, L509.8000 #### [facility] [address] [place], [place], [id number] Hep B Suzette AB Non-Reactive Normal . [facility] Comment on above: Result Comment: Non Reactive: Not immune to HBV infection. Equivocal: Unable to determine if anti-HBs is present at levels consistent with immunity. Reactive: Anti-HBs concentration detected at greater than 10 mIU/mL. Individual is considered to be immune to infection with HBV. Performed By: #### L 501.9985, L501.9520, L506.1000, L500.4100, L3000.0800, L3890.6005, L500.4050, L100.0100, L509.8000 #### [facility] [address] [place], [place], [id number] HEP B SURF AG Negative Normal Negative [facility] Comment on above: Performed By: #### L 501.9985, L501.9520, L506.1000, L500.4100, L3000.0800, L3890.6005, L500.4050, L100.0100, L509.8000 #### [facility] [address] [place], [place], [id number] HEP C Antibody Reactive Abnormal Non Reactive [facility] Comment on above: Performed By: #### L 501.9985, L501.9520, L506.1000, L500.4100, L3000.0800, L3890.6005, L500.4050, L100.0100, L509.8000 #### [facility] [address] [place], [place], [id number] Miscellaneous Lab Procedureo n 01-19-20[facility] Comment on above: Order Comment: [id number] 021, VG+, APTIMA ORANGE SWAB RMT Result Comment: TEST RESULTS LIMITS NuSwab Vaginitis Plus (VG+) Bacterial Vaginosis, CHERRY Atopobium vaginae, Low - 0 Score BVAB 2, Low - 0 Score Megasphaera 1 , Low - 0 Score Total Score, add three scores Calculate total score by adding the 3 individual bacterial vaginosis (BV) marker scores together. Total score is interpreted as follows: Total score 0-1: Indicates the absence of BV. Total score 2: Indeterminate for BV. Additional clinical data should be evaluated to establish a diagnosis. Total score 3-6: Indicates the presence of BV. Nina albicans, CHERRY, Negative Negative Nina glabrata, CHERRY, Negative Negative Trich vag by CHERRY Negative Negative Chlamydia trachomatis, CHERRY Negative Negative Neisseria gonorrhoeae, CHERRY Negative Negative TESTING PERFORMED AT [facility]. ORIGINAL REPORT ON FILE IN LAB CONTAINS ADDITIONAL TEST SITE INFORMATION. Performed By: #### L 7400.0290, L801.1541 #### [facility] [address] [facility] [place], [address] CBC W/Diff, Automatedon 11-2 0-2023 Absolute Lymph 2.78 X10 3/uL Normal 0.83-4.51 [facility] Comment on above: Performed By: #### L 501.9985, L501.9520, L506.1000, L500.4100, L3000.0800, L3890.6005, L500.4050, L100.0100, L509.8000 #### [facility] [address] [place], [place], [id number] Absolute Neut 7.6 X10 3/uL Normal 2.0-7.7 [facility] Comment on above: Performed By: #### L 501.9985, L501.9520, L506.1000, L500.4100, L3000.0800, L3890.6005, L500.4050, L100.0100, L509.8000 #### [facility] [address] [place], [address] Basophils/100 WBC (Bld) 0.6 % Normal 0-1 [facility] Comment on above: Performed By: #### L 501.9985, L501.9520, L506.1000, L500.4100, L3000.0800, L3890.6005, L500.4050, L100.0100, L509.8000 #### [facility] [address] [facility] [place], [address] Eosinophils/100 WBC (Bld) 2.0 % Normal 0-5 [facility] Comment on above: Performed By: #### L 501.9985, L501.9520, L506.1000, L500.4100, L3000.0800, L3890.6005, L500.4050, L100.0100, L509.8000 #### [facility] [address] [facility] [place], [address] Erythrocyte distribution width (RBC) [Ratio] 12.7 % Normal 11.6-14.6 [facility] Comment on above: Performed By: #### L 501.9985, L501.9520, L506.1000, L500.4100, L3000.0800, L3890.6005, L500.4050, L100.0100, L509.8000 #### [facility] [address] [place], [address] Hematocrit (Bld) [Volume fraction] 40.3 % Normal 37-47 [facility] Comment on above: Performed By: #### L 501.9985, L501.9520, L506.1000, L500.4100, L3000.0800, L3890.6005, L500.4050, L100.0100, L509.8000 #### [facility] [address] [facility] [place], [address] Hemoglobin (Bld) [Mass/Vol] 13.5 g/dL Normal 12.0-15.0 [facility] Comment on above: Performed By: #### L 501.9985, L501.9520, L506.1000, L500.4100, L3000.0800, L3890.6005, L500.4050, L100.0100, L509.8000 #### [facility] [address] [facility] [place], [address] IG% 0.400 Normal 0.0-0.9 [facility] Comment on above: Result Comment: IG% - Immature Granulocytes (promyelocytes, myelocytes and metamyelocytes) > 1% indicates that a LEFT SHIFT is Present. Performed By: #### L 501.9985, L501.9520, L506.1000, L500.4100, L3000.0800, L3890.6005, L500.4050, L100.0100, L509.8000 #### [facility] [address] [place], [address] Lymphocytes/100 WBC (Bld) 24.4 % Normal 19-41 [facility] Comment on above: Performed By: #### L 501.9985, L501.9520, L506.1000, L500.4100, L3000.0800, L3890.6005, L500.4050, L100.0100, L509.8000 #### [facility] [address] [place], [address] MCH (RBC) [Entitic mass] 29.5 pg Normal 27.0-32.0 [facility] Comment on above: Performed By: #### L 501.9985, L501.9520, L506.1000, L500.4100, L3000.0800, L3890.6005, L500.4050, L100.0100, L509.8000 #### [facility] [address] [place], [address] MCHC (RBC) [Mass/Vol] 33.5 g/dL Normal 32-36 [facility] Comment on above: Performed By: #### L 501.9985, L501.9520, L506.1000, L500.4100, L3000.0800, L3890.6005, L500.4050, L100.0100, L509.8000 #### [facility] [address] [place], [address] MCV (RBC) [Entitic vol] 88.0 fL Normal 81-99 [facility] Comment on above: Performed By: #### L 501.9985, L501.9520, L506.1000, L500.4100, L3000.0800, L3890.6005, L500.4050, L100.0100, L509.8000 #### [facility] [address] [place], [address] Monocytes/100 WBC (Bld) 5.5 % Normal 0-10 [facility] Comment on above: Performed By: #### L 501.9985, L501.9520, L506.1000, L500.4100, L3000.0800, L3890.6005, L500.4050, L100.0100, L509.8000 #### [facility] [address] [place], [address] Neutrophils/100 WBC (Bld) 67.1 % Normal 47-70 [facility] Comment on above: Performed By: #### L 501.9985, L501.9520, L506.1000, L500.4100, L3000.0800, L3890.6005, L500.4050, L100.0100, L509.8000 #### [facility] [address] [place], [address] Nucleated RBC (Bld) [#/Vol] 0 10*3/uL Normal 0-5 [facility] Comment on above: Performed By: #### L 501.9985, L501.9520, L506.1000, L500.4100, L3000.0800, L3890.6005, L500.4050, L100.0100, L509.8000 #### [facility] [address] [place], [address] ( Platelet mean volume (Bld) [Entitic vol] 9.8 fL Normal 6.2-12.0 [facility] Comment on above: Performed By: #### L 501.9985, L501.9520, L506.1000, L500.4100, L3000.0800, L3890.6005, L500.4050, L100.0100, L509.8000 #### [facility] [address] [place], [address] ( Platelets (Bld) [#/Vol] 343 10*3/uL Normal 150-450 [facility] Comment on above: Performed By: #### L 501.9985, L501.9520, L506.1000, L500.4100, L3000.0800, L3890.6005, L500.4050, L100.0100, L509.8000 #### [facility] [address] [place], [address] RBC (Bld) [#/Vol] 4.58 10*6/uL Normal 4.2-5.4 [facility] Comment on above: Performed By: #### L 501.9985, L501.9520, L506.1000, L500.4100, L3000.0800, L3890.6005, L500.4050, L100.0100, L509.8000 #### [facility] [address] [place], [address] RDW SD 41.2 fl Normal 35.1-43.9 [facility] Comment on above: Performed By: #### L 501.9985, L501.9520, L506.1000, L500.4100, L3000.0800, L3890.6005, L500.4050, L100.0100, L509.8000 #### [facility] [address] [place], [place], [id number] WBC (Bld) [#/Vol] 11.4 10*3/uL High 4.4-11.0 [facility] Comment on above: Performed By: #### L 501.9985, L501.9520, L506.1000, L500.4100, L3000.0800, L3890.6005, L500.4050, L100.0100, L509.8000 #### [facility] [address] [place], [place], [id number] Comprehensive Metabolic Prof ilon 01-16-2024 Albumin [Mass/Vol] 3.7 g/dL Normal 3.2-5.0 [facility] Comment on above: Performed By: #### L 501.9985, L501.9520, L506.1000, L500.4100, L3000.0800, L3890.6005, L500.4050, L100.0100, L509.8000 #### [facility] [address] [place], [place], [id number] Albumin/Globulin [Mass ratio] 1.1 {ratio} Normal 0.9-2.4 [facility] Comment on above: Performed By: #### L 501.9985, L501.9520, L506.1000, L500.4100, L3000.0800, L3890.6005, L500.4050, L100.0100, L509.8000 #### [facility] [address] [place], [place], [id number] ALK P 94 U/L Normal 45-117 [facility] Comment on above: Performed By: #### L 501.9985, L501.9520, L506.1000, L500.4100, L3000.0800, L3890.6005, L500.4050, L100.0100, L509.8000 #### [facility] [address] [place], [address] ALT [Catalytic activity/Vol] 26 U/L Normal 13-56 [facility] Comment on above: Performed By: #### L 501.9985, L501.9520, L506.1000, L500.4100, L3000.0800, L3890.6005, L500.4050, L100.0100, L509.8000 #### [facility] [address] [place], [address] AST [Catalytic activity/Vol] 18 U/L Normal 15-37 [facility] Comment on above: Performed By: #### L 501.9985, L501.9520, L506.1000, L500.4100, L3000.0800, L3890.6005, L500.4050, L100.0100, L509.8000 #### [facility] [address] [place], [address] Bilirubin [Mass/Vol] 0.20 mg/dL Normal 0.20-1.00 [facility] Comment on above: Result Comment: For patients on eltrombopag therapy, use of Dimension [place] TBIL is not recommended. Performed By: #### L 501.9985, L501.9520, L506.1000, L500.4100, L3000.0800, L3890.6005, L500.4050, L100.0100, L509.8000 #### [facility] [address] [place], [address] BUN/CRE 19.5 RATIO Normal 10-20 [facility] Comment on above: Performed By: #### L 501.9985, L501.9520, L506.1000, L500.4100, L3000.0800, L3890.6005, L500.4050, L100.0100, L509.8000 #### [facility] [address] [place], [address] CA,Total 9.3 mg/dL Normal 8.5-10.1 [facility] Comment on above: Performed By: #### L 501.9985, L501.9520, L506.1000, L500.4100, L3000.0800, L3890.6005, L500.4050, L100.0100, L509.8000 #### [facility] [address] [place], [address] Chloride [Moles/Vol] 106 mmol/L Normal 98-107 [facility] Comment on above: Performed By: #### L 501.9985, L501.9520, L506.1000, L500.4100, L3000.0800, L3890.6005, L500.4050, L100.0100, L509.8000 #### [facility] [address] [place], [address] CO2 [Moles/Vol] 26.0 mmol/L Normal 21.0-32.0 [facility] Comment on above: Performed By: #### L 501.9985, L501.9520, L506.1000, L500.4100, L3000.0800, L3890.6005, L500.4050, L100.0100, L509.8000 #### [facility] [address] [place], [address] Creatinine [Mass/Vol] 0.66 mg/dL Normal 0.55-1.02 [facility] Comment on above: Result Comment: The validity of the calculated GFR GFRAA in patients over 70 years has not been determined. Clinical correlation is essential. Performed By: #### L 501.9985, L501.9520, L506.1000, L500.4100, L3000.0800, L3890.6005, L500.4050, L100.0100, L509.8000 #### [facility] [address] [place], [address] EST GFR - AA 124 mL/min Normal >60 [facility] Comment on above: Result Comment: Afri can [place] GFR Calc Performed By: #### L 501.9985, L501.9520, L506.1000, L500.4100, L3000.0800, L3890.6005, L500.4050, L100.0100, L509.8000 #### [facility] [address] [facility] [place], [place], [id number] GAP 5 Normal 5-15 [facility] Comment on above: Performed By: #### L 501.9985, L501.9520, L506.1000, L500.4100, L3000.0800, L3890.6005, L500.4050, L100.0100, L509.8000 #### [facility] [address] [facility] [place], [place], [id number] GFR/1.73 sq M.predicted among non-blacks MDRD (S/P/Bld) [Vol rate/Area] 102 mL/min/{1.73_m2} Normal >60 [facility] Comment on above: Result Comment: Non- GFR Calc Performed By: #### L 501.9985, L501.9520, L506.1000, L500.4100, L3000.0800, L3890.6005, L500.4050, L100.0100, L509.8000 #### [facility] [address] [place], [place], [id number] ([address]) Globulin (S) [Mass/Vol] 3.4 g/dL Normal 2.2-4.2 [facility] Comment on above: Performed By: #### L 501.9985, L501.9520, L506.1000, L500.4100, L3000.0800, L3890.6005, L500.4050, L100.0100, L509.8000 #### [facility] [address] [place], [address] Glucose [Mass/Vol] 87 mg/dL Normal 74-106 [facility] Comment on above: Performed By: #### L 501.9985, L501.9520, L506.1000, L500.4100, L3000.0800, L3890.6005, L500.4050, L100.0100, L509.8000 #### [facility] [address] [place], [address] Potassium [Moles/Vol] 4.0 mmol/L Normal 3.5-5.1 [facility] Comment on above: Performed By: #### L 501.9985, L501.9520, L506.1000, L500.4100, L3000.0800, L3890.6005, L500.4050, L100.0100, L509.8000 #### [facility] [address] [place], [address] Sodium [Moles/Vol] 138 mmol/L Normal 136-145 [facility] Comment on above: Performed By: #### L 501.9985, L501.9520, L506.1000, L500.4100, L3000.0800, L3890.6005, L500.4050, L100.0100, L509.8000 #### [facility] [address] [place], [address] T PROT 7.1 g/dL Normal 6.4-8.2 [facility] Comment on above: Performed By: #### L 501.9985, L501.9520, L506.1000, L500.4100, L3000.0800, L3890.6005, L500.4050, L100.0100, L509.8000 #### [facility] [address] [place], [address] Urea nitrogen [Mass/Vol] 13 mg/dL Normal 7-18 [facility] Comment on above: Performed By: #### L 501.9985, L501.9520, L506.1000, L500.4100, L3000.0800, L3890.6005, L500.4050, L100.0100, L509.8000 #### [facility] [address] [place], [address] HIV - WCHon 01-16-2024 HIV Non-Reactive Normal Nonreactive [facility] Comment on above: Performed By: #### L 501.9985, L501.9520, L506.1000, L500.4100, L3000.0800, L3890.6005, L500.4050, L100.0100, L509.8000 #### [facility] [address] [place], [address] Hemoglobin A1con 01-16-2024 HbA1c (Bld) [Mass fraction] 5.7 % High 3.8-5.6 [facility] Comment on above: Result Comment: Norm al < 5.7 % Prediabetic 5.7 - 6.4 % Diabetic >or= 6.5 % Please note range changes. Performed By: #### L 501.9985, L501.9520, L506.1000, L500.4100, L3000.0800, L3890.6005, L500.4050, L100.0100, L509.8000 #### [facility] [address] [place], [address] L509.8000on 01-16-2024 Syphilis Abs Non-Reactive Normal [facility] Comment on above: Performed By: #### L 501.9985, L501.9520, L506.1000, L500.4100, L3000.0800, L3890.6005, L500.4050, L100.0100, L509.8000 #### [facility] [address] [place], [address] Lipid Profileon 01-16-2024 Cholesterol [Mass/Vol] 181 mg/dL Normal 200 [facility] Comment on above: Result Comment: <200 mg/dL Desirable 200-240 mg/dL Borderline >240 mg/dL High Risk Performed By: #### L 501.9985, L501.9520, L506.1000, L500.4100, L3000.0800, L3890.6005, L500.4050, L100.0100, L509.8000 #### [facility] [address] [place], [address] Cholesterol in HDL [Mass/Vol] 77 mg/dL Normal [facility] Comment on above: Result Comment: The drugs N-Acetylcysteine and Metamizole may falsely depress this assay. Reference Range HDL <40 mg/dL Low HDL Cholesterol HDL >or= 60 mg/dL High HDL Cholesterol Performed By: #### L 501.9985, L501.9520, L506.1000, L500.4100, L3000.0800, L3890.6005, L500.4050, L100.0100, L509.8000 #### [facility] [address] [place], [address] Cholesterol in LDL [Mass/Vol] 88 mg/dL Normal 0-130 [facility] Comment on above: Performed By: #### L 501.9985, L501.9520, L506.1000, L500.4100, L3000.0800, L3890.6005, L500.4050, L100.0100, L509.8000 #### [facility] [address] [place], [address] Cholesterol in VLDL [Mass/Vol] 16 mg/dL Normal 5-40 [facility] Comment on above: Performed By: #### L 501.9985, L501.9520, L506.1000, L500.4100, L3000.0800, L3890.6005, L500.4050, L100.0100, L509.8000 #### [facility] [address] [place], [place], [id number] Triglyceride [Mass/Vol] 81 mg/dL Normal [facility] Comment on above: Result Comment: The drugs N-Acetylcysteine and Metamizole may falsely depress this assay. Serum Triglycerides Reference Interval Normal <150 mg/dL Borderline high 150 - 199 mg/dL High 200 - 499 mg/dL Very High > or = 500 mg/dL Performed By: #### L 501.9985, L501.9520, L506.1000, L500.4100, L3000.0800, L3890.6005, L500.4050, L100.0100, L509.8000 #### [facility] [address] [facility] [place], [place], [id number] Thyroid Stim Hormone (TSH)on 01-16-2024 TSH 0.830 uIU/mL Normal 0.358-3.740 [facility] Comment on above: Performed By: #### L 501.9985, L501.9520, L506.1000, L500.4100, L3000.0800, L3890.6005, L500.4050, L100.0100, L509.8000 #### [facility] [address] [facility] [place], [place], [id number] Vitamin D,25 Hydroxyon 01-15 Vitamin D 25-OH 35.2 ng/mL Normal [facility] Comment on above: Result Comment: Diana min D 25(OH) Status Range Deficiency <20 ng/mL (50nmol/L) Insufficiency 20 - 30 ng/mL (50 - 75 nmol/L) Sufficiency 30 - 100 ng/mL (75 - 250 nmol/L) Toxicity >100 ng/mL (>250 nmol/L) Performed By: #### L 501.9985, L501.9520, L506.1000, L500.4100, L3000.0800, L3890.6005, L500.4050, L100.0100, L509.8000 #### [facility] [address] [place], [address] Basophil percentageOrdered B y: Antonella Morris on 01-01-2023 Bilirubin [Mass/Vol] 0.40 mg/dL 0.20-1.00 [facility] Comment on above: For patients on eltr ombopag therapy, use of Dimension [place] TBIL is not recommended. Chloride [Moles/Vol] 107 mmol/L 98-107 [facility] Glucose [Mass/Vol] 99 mg/dL 74-106 [facility] Potassium [Moles/Vol] 3.8 mmol/L 3.5-5.1 [facility] Protein [Mass/Vol] 7.1 g/dL 6.4-8.2 [facility] Sodium [Moles/Vol] 138 mmol/L 136-145 [facility] WBC (Bld) [#/Vol] 11.7 10*3/uL 4.4-11.0 [facility] Blood erythrocytes count (nu mber/volume)Ordered By: Antonella Morris on 01-01-2023 RBC (Bld) [#/Vol] 4.75 10*6/uL 4.2-5.4 [facility] Blood hemoglobin measurement (mass/volume)Ordered By: Antonella Morris on 01-01-2023 Hemoglobin (Bld) [Mass/Vol] 13.8 g/dL 12.0-15.0 [facility] Blood platelet mean volumeOr dered By: Antonella Morris on 01-01-2023 Platelet mean volume (Bld) [Entitic vol] 9.9 fL 6.2-12.0 [facility] Determination of erythrocyte mean corpuscular volume (MCV)Ordered By: Antonella Morris on 01-01-2023 MCV (RBC) [Entitic vol] 90.9 fL 81-99 [facility] Hematocrit Auto (Bld) [Volum e fraction]Ordered By: Antonella Morris on 01-01-2023 Hematocrit (Bld) [Volume fraction] 43.2 % 37-47 [facility] - Chemistry and C hemistry - challengeOrdered By: Antonella Morris on 01-01-2023 ALP [Catalytic activity/Vol] 86 U/L 45-117 [facility] ALT [Catalytic activity/Vol] 23 U/L 13-56 [facility] CO2 [Moles/Vol] 26.0 mmol/L 21.0-32.0 [facility] Globulin (S) [Mass/Vol] 3.4 g/dL 2.2-4.2 [facility] Urea nitrogen/Creatinine [Mass ratio] 20.3 mg/mg 10-20 [facility] - Hematology and Cell countsOrdered By: Antonella Morris on 01-01-2023 Erythrocyte distribution width (RBC) [Entitic vol] 43.3 fL 35.1-43.9 [facility] Erythrocyte distribution width (RBC) [Ratio] 12.9 % 11.6-14.6 [facility] MCH (RBC) [Entitic mass] 29.1 pg 27.0-32.0 [facility] MCHC Auto (RBC) [Mass/Vol]Or dered By: Antonella Morris on 01-01-2023 MCHC (RBC) [Mass/Vol] 31.9 g/dL 32-36 [facility] No Panel InformationOrdered By: Antonella Morris on 01-01-2023 Estimated GFR (MDRD) Amer 130 mL/min >60 [facility] Comment on above: GFR Calc Estimated GFR (MDRD) Non-Af Amer 107 mL/min >60 [facility] Comment on above: Non- GFR Calc Thyroid Stimulating Hormone (TSH) 0.77 uIU/mL 0.358-3.74 [facility] Platelets bldOrdered By: Angelica Morris on 01-01-2023 Platelets (Bld) [#/Vol] 375 10*3/uL 150-450 [facility] Serum or plasma albumin harjeet urement (mass/volume)Ordered By: Antonella Morris on 01-01-2023 Albumin [Mass/Vol] 3.7 g/dL 3.2-5.0 [facility] Serum or plasma albumin/glob ulin mass ratioOrdered By: Antonella Morris on 01-01-2023 Albumin/Globulin [Mass ratio] 1.1 {ratio} 0.9-2.4 [facility] Serum or plasma calcium harjeet urement (mass/volume)Ordered By: Antonella Morris on 01-01-2023 Calcium [Mass/Vol] 9.2 mg/dL 8.5-10.1 [facility] Serum or plasma choriogonado tropin detectionOrdered By: Antonella Morris on 01-01-2023 HCG ( test) Ql < 1 mIU/mL <4 [facility] Comment on above: hCG levels with Gest ational AgeGestational Age hCG mIU/mL (IU/L)0.2 - 1 week 5 - 501-2 weeks 50 - 5002-3 weeks 100 - 66249-0 weeks 500 - 417133-2 weeks 1000 - 702206-5 weeks 14274 - 100,0006-8 weeks 47753 - 200,0002-3 months 86915 - 100,000 Serum or plasma creatinine m easurement (mass/volume)Ordered By: Antonella Morris on 01-01-2023 Creatinine [Mass/Vol] 0.64 mg/dL 0.55-1.02 [facility] Comment on above: The validity of the calculated GFR & GFRAA in patients over 70 years has not been determined. Clinical correlation is essential. Serum or plasma prolactin me asurement (mass/volume)Ordered By: Antonella Morris on 01-01-2023 Prolactin [Mass/Vol] 4.8 ng/mL [facility] Comment on above: NORMAL REFERENCE RAN GES FEMALE NON- 2.2 - 30.3 ng/mL 8.1 - 347.6 ng/mL POST-MENOPAUSAL 0.7 - 31.5 ng/mL MALE 2.5 - 17.4 ng/mL Serum or plasma urea nitroge n measurement (mass/volume)Ordered By: Antonella Morris on 01-01-2023 Urea nitrogen [Mass/Vol] 13 mg/dL 7-18 [facility] Thin prep Papanicolaou smear with manual screeningOrdered By: Antonella Morris on 01-01-2023 Thin prep Papanicolaou smear with manual screening 18 U/L 15-37 [facility] Thin prep Papanicolaou smear with manual screening 5 5-15 [facility] Whole blood hemoglobin A1c/t otal hemoglobin ratio (mass fraction)Ordered By: Antonella Morris on 01-01-2023 HbA1c (Bld) [Mass fraction] 5.5 % 3.8-5.6 [facility] Comment on above: Normal < 5.7 % Predi abetic 5.7 - 6.4 % Diabetic >or= 6.5 % Please note range changes. Basophil percentageon 2021 WBC (Bld) [#/Vol] 11.3 10*3/uL 4.4-11.0 [facility] Work Phone: Blood erythrocytes count (nu mber/volume)on 05-24-2021 RBC (Bld) [#/Vol] 4.67 10*6/uL 4.2-5.4 [facility] Work Phone: Blood hemoglobin measurement (mass/volume)on 05-24-2021 Hemoglobin (Bld) [Mass/Vol] 14.1 g/dL 12.0-15.0 [facility] Work Phone: Blood platelet mean volumeon 05-24-2021 Platelet mean volume (Bld) [Entitic vol] 10.2 fL 6.2-12.0 [facility] Work Phone: Determination of erythrocyte mean corpuscular volume (MCV)on 05-24-2021 MCV (RBC) [Entitic vol] 90.4 fL 81-99 [facility] Work Phone: Hematocrit Auto (Bld) [Volum e fraction]on 05-24-2021 Hematocrit (Bld) [Volume fraction] 42.2 % 37-47 [facility] Work Phone: Laboratory - Hematology and Cell countson 05-24-2021 Erythrocyte distribution width (RBC) [Entitic vol] 42.5 fL 35.1-43.9 [facility] Work Phone: Erythrocyte distribution width (RBC) [Ratio] 12.9 % 11.6-14.6 [facility] Work Phone: MCH (RBC) [Entitic mass] 30.2 pg 27.0-32.0 [facility] Work Phone: MCHC Auto (RBC) [Mass/Vol]on 05-24-2021 MCHC (RBC) [Mass/Vol] 33.4 g/dL 32-36 [facility] Work Phone: No Panel Informationon 05-24 Anti-Nuclear Antibody Screen Negative Negative [facility] Work Phone: Comment on above: Performed at: - [address] [id number] Director: Sameer Sandoval PhD, Phone: [phone] Vitamin D 25-Hydroxy 33.2 ng/mL [facility] Work Phone: Comment on above: Vitamin D 25(OH) Sta tus Range Deficiency <20 ng/mL (50nmol/L) Insufficiency 20 - 30 ng/mL (50 - 75 nmol/L) Sufficiency 30 - 100 ng/mL (75 - 250 nmol/L) Toxicity >100 ng/mL (>250 nmol/L) Platelets bldon 05-24-2021 Platelets (Bld) [#/Vol] 303 10*3/uL 150-450 [facility] Work Phone: Serum rheumatoid factor dete ctionon 05-24-2021 Rheumatoid factor Ql (S) < 10.0 IU/mL <15 [facility] Work Phone: .Auto Diffon 07-19-2019 Ammonia (P) [Mass/Vol] 0.70 10 3/mcL Normal 0.15-1.00 [facility] ([place]) Comment on above: Performed By: #### C HYUN, CAMACHO ANEU, GFR #### [address] [address] #### BMP #### [facility] [address] [place] [id number] Basophils (Bld) [#/Vol] 0.10 10 3/mcL Normal 0.00-0.19 [facility] ([place]) Comment on above: Performed By: #### C BC, ADIFF, ANEU, GFR #### [address] [address] #### BMP #### [address] [address] Basophils/100 WBC (Bld) 0.7 % Normal 0.0-2.5 [facility] ([place]) Comment on above: Performed By: #### C BC, ADIFF, ANEU, GFR #### [address] [address] #### BMP #### [address] [address] Eosinophils (Bld) [#/Vol] 0.40 10 3/mcL Normal 0.00-0.40 [facility] ([place]) Comment on above: Performed By: #### C BC, ADIFF, ANEU, GFR #### [address] [address] #### BMP #### [address] [address] Eosinophils/100 WBC (Bld) 3.1 % Normal 0.0-7.0 [facility] ([place]) Comment on above: Performed By: #### C BC, ADIFF, ANEU, GFR #### [address] [address] #### BMP #### [address] [address] Lymphocytes (Bld) [#/Vol] 2.30 10 3/mcL Normal 0.77-3.85 [facility] ([place]) Comment on above: Performed By: #### C BC, ADIFF, ANEU, GFR #### [address] [address] #### BMP #### [address] [address] Lymphocytes/100 WBC (Bld) 18.3 % Normal 10.0-50.0 [facility] ([place]) Comment on above: Performed By: #### C BC, ADIFF, ANEU, GFR #### [address] [address] #### BMP #### [address] [address] Monocytes/100 WBC (Bld) 5.6 % Normal 1.7-13.0 [facility] ([place]) Comment on above: Performed By: #### C BC, ADIFF, ANEU, GFR #### [address] [address] #### BMP #### [address] [address] Neutrophils/100 WBC (Bld) 72.3 % Normal 37.0-80.0 [facility] ([place]) Comment on above: Performed By: #### C BC, ADIFF, ANEU, GFR #### [address] [address] #### BMP #### [address] [address] .GFRon 07-19-2019 GFR Non- 96 ml/min/1.73sqm Normal [facility] ([place]) Comment on above: Result Comment: GFR Population mean for , Non- Americans Ages 20-29 = 116 mL/min/1.73 sq.m. Ages 30-39 = 107 mL/min/1.73 sq.m. Ages 40-49 = 99 mL/min/1.73 sq.m. Ages 50-59 = 93 mL/min/1.73 sq.m. Ages 60-69 = 85 mL/min/1.73 sq.m. Ages 70+ = 75 mL/min/1.73 sq.m. Chronic Kidney Disease: Less than 60 mL/min/1.73 square meters End Stage Renal Disease: Less than 15 mL/min/1.73 square meters Performed By: #### C BC, ADIFF, ANEU, GFR #### [address] [address] #### BMP #### [address] [address] GFR 116 ml/min/1.73sqm Normal [facility] ([place]) Comment on above: Result Comment: GFR Population mean for , Non- Americans Ages 20-29 = 116 mL/min/1.73 sq.m. Ages 30-39 = 107 mL/min/1.73 sq.m. Ages 40-49 = 99 mL/min/1.73 sq.m. Ages 50-59 = 93 mL/min/1.73 sq.m. Ages 60-69 = 85 mL/min/1.73 sq.m. Ages 70+ = 75 mL/min/1.73 sq.m. Chronic Kidney Disease: Less than 60 mL/min/1.73 square meters End Stage Renal Disease: Less than 15 mL/min/1.73 square meters Performed By: #### C BC, ADIFF, ANEU, GFR #### [place] [address] #### BMP #### [place] [address] .NEUABSon 07-19-2019 Neutrophils (Bld) [#/Vol] 9.00 10 3/mcL High 2.85-6.16 [facility] ([place]) Comment on above: Performed By: #### C BC, CAMACHO, ANEU, GFR #### [place] [address] #### BMP #### [place] [address] .Urinalysis Microscopic (AO) on 07-19-2019 RBC (U) [#/Vol] 0-5 Abnormal None Seen [facility] ([place]) Comment on above: Performed By: #### U A, UAMICAO, PREGU #### [address] [address] UA Squam Epithelial 10-15 Abnormal None Seen [facility] ([place]) Comment on above: Performed By: #### U A, UAMICAO, PREGU #### [address] [address] UA WBC 0-5 Abnormal None Seen [facility] ([place]) Comment on above: Performed By: #### U A, UAMICAO, PREGU #### [address] [address] BMPon 07-19-2019 Calcium [Mass/Vol] 8.1 mg/dL Low 8.4-10.2 [facility] ([place]) Comment on above: Performed By: #### C BC, ADIFF, ANEU, GFR #### [address] [address] #### BMP #### [address] [address] Chloride [Moles/Vol] 106 mmol/L Normal 98-107 [facility] ([place]) Comment on above: Performed By: #### C BC, ADIFF, ANEU, GFR #### [place] [address] #### BMP #### [address] [address] CO2 [Moles/Vol] 26 mmol/L Normal 22-29 [facility] ([place]) Comment on above: Performed By: #### C BC, ADIFF, ANEU, GFR #### [address] [address] #### BMP #### [address] [address] Creatinine [Mass/Vol] 0.68 mg/dL Normal 0.55-1.02 [facility] ([place]) Comment on above: Performed By: #### C BC, ADIFF, ANEU, GFR #### [address] [address] #### BMP #### [address] [address] Electrolyte Balance 10.0 mEq/L Normal [facility] ([place]) Comment on above: Performed By: #### C BC, ADIFF, ANEU, GFR #### [address] [address] #### BMP #### [address] [address] Glucose [Mass/Vol] 93 mg/dL Normal 70-105 [facility] ([place]) Comment on above: Performed By: #### C BC, ADIFF, ANEU, GFR #### [address] [address] #### BMP #### [address] [address] Potassium [Moles/Vol] 3.9 mmol/L Normal 3.5-5.1 [facility] ([place]) Comment on above: Performed By: #### C BC, ADIFF, ANEU, GFR #### [address] [address] #### BMP #### [address] [address] Sodium [Moles/Vol] 142 mmol/L Normal 136-145 [facility] ([place]) Comment on above: Performed By: #### C BC, ADIFF, ANEU, GFR #### [address] [address] #### BMP #### [address] [address] Urea nitrogen [Mass/Vol] 16 mg/dL Normal 7-18 [facility] ([place] Comment on above: Performed By: #### C BC, ADIFF, ANEU, GFR #### [place] [address] #### BMP #### [address] [address] Urea nitrogen/Creatinine [Mass ratio] 24 ratio Normal 7-27 [facility] ([place] Comment on above: Performed By: #### C BC, ADIFF, ANEU, GFR #### [address] [address] #### BMP #### [address] [address] CBCon 07-19-2019 Erythrocyte distribution width (RBC) [Ratio] 13.6 % Normal 11.5-14.5 [facility] ([place]) Comment on above: Performed By: #### C BC, ADIFF, ANEU, GFR #### [address] [address] #### BMP #### [address] [address] Hematocrit (Bld) [Volume fraction] 35.4 % Low 37.0-47.0 [facility] ([place] Comment on above: Performed By: #### C BC, ADIFF, ANEU, GFR #### [place] [address] #### BMP #### [place] [address] Hemoglobin (Bld) [Mass/Vol] 11.9 G/dL Low 12.0-16.0 [facility] ([place] Comment on above: Performed By: #### C BC, ADIFF, ANEU, GFR #### [place] [address] #### BMP #### [place] [address] MCH (RBC) [Entitic mass] 29.3 pg Normal 27.0-31.2 [facility] ([place] Comment on above: Performed By: #### C BC, ADIFF, ANEU, GFR #### [place] [address] #### BMP #### [place] [address] MCHC (RBC) [Mass/Vol] 33.6 G/dL Normal 33.0-37.0 [facility] ([place]) Comment on above: Performed By: #### C BC, ADIFF, ANEU, GFR #### [place] [address] #### BMP #### [place] [address] MCV (RBC) [Entitic vol] 87.3 fL Normal 80.0-94.0 [facility] ([place]) Comment on above: Performed By: #### C BC, ADIFF, ANEU, GFR #### [place] [address] #### BMP #### [place] [address] Platelet mean volume (Bld) [Entitic vol] 7.7 fL Normal 7.4-10.4 [facility] ([place] Comment on above: Performed By: #### C BC, ADIFF, ANEU, GFR #### [place] [address] #### BMP #### [address] [address] Platelets (Bld) [#/Vol] 304 10 3/mcL Normal 130-400 [facility] ([place]) Comment on above: Performed By: #### C BC, ADIFF, ANEU, GFR #### [place] [address] #### BMP #### [place] [address] RBC (Bld) [#/Vol] 4.05 10 6/mcL Low 4.20-5.40 [facility] ([place]) Comment on above: Performed By: #### C BC, ADIFF, ANEU, GFR #### [place] [address] #### BMP #### [address] [address] WBC (Bld) [#/Vol] 12.50 10 3/mcL High 4.60-10.80 [facility] ([place]) Comment on above: Performed By: #### C BC, ADIFF, ANEU, GFR #### [place] [address] #### BMP #### [place] [address] CKon 07-19-2019 CK [Catalytic activity/Vol] 290 U/L High 26-192 [facility] ([place]) Comment on above: Performed By: #### C K #### [place] [address] PREGUon 07-19-2019 HCG ( test) Ql (U) Negative Normal [facility] ([place]) Comment on above: Performed By: #### U A, UAMICAO, PREGU #### [place] [address] test (u) int HCG not detected. [facility] ([place] Comment on above: Performed By: #### U A, UAMICAO, PREGU #### [place] [id number] UAon 07-19-2019 Color (U) Yellow Normal [facility] ([place] Comment on above: Performed By: #### U A, UAMICAO, PREGU #### [place] [id number] Glucose (U) [Mass/Vol] Negative Normal Negative [facility] ([place]) Comment on above: Performed By: #### U A, UAMICAO, PREGU #### [place] [address] Ketones Ql (U) Negative Normal Negative [facility] ([place]) Comment on above: Performed By: #### U A, UAMICAO, PREGU #### [place] [address] UA Appear Slightly Cloudy Abnormal Clear [facility] ([place] Comment on above: Performed By: #### U A, UAMICAO, PREGU #### [place] [address] UA Blood Small Abnormal Negative [facility] ([place] Comment on above: Performed By: #### U A, UAMICAO, PREGU #### [address] [address] UA Leuk Est Negative Normal Negative [facility] ([place] Comment on above: Performed By: #### U A, UAMICAO, PREGU #### [place] [address] UA Nitrite Negative Normal Negative [facility] ([place] Comment on above: Performed By: #### U A, UAMICAO, PREGU #### [address] [address] UA pH 6.5 Normal 5.0 - 8.0 [facility] ([place] Comment on above: Performed By: #### U A, UAMICAO, PREGU #### [place] [id number] UA Protein Negative Normal Negative [facility] ([place] Comment on above: Performed By: #### U A, UAMICAO, PREGU #### [address] [address] UA Spec Grav >=1.030 Abnormal 1.015-1.025 [facility] ([place]) Comment on above: Performed By: #### U A, UAMICAO, PREGU #### [address] [address] UA Specimen Type Clean Catch Normal [facility] ([place]) Comment on above: Performed By: #### U A, UAMICAO, PREGU #### [address] [address] UA Urobilinogen 0.2 E.U./dL Normal 0.2-1.0 [facility] ([place]) Comment on above: Performed By: #### U A, UAMICAO, PREGU #### [address] [address] Urobilinogen Qn (U) Negative Normal Negative [facility] ([place]) Comment on above: Performed By: #### U A, UAMICAO, PREGU #### [address] [address] No Panel Information SARS-CoV-2 & FLU Antigen (Rapid) SARS-CoV-2 (COVID 19) [facility] Work Phone: Vital Signs Date Time Vital Sign Value Performing Clinician Facility 03-11-2024 11:41-0500 Body temperature 98.01 [degF] Stas Garcia APRN.MOTOR GENERATOR SET OPERATOR Work Phone: [facility] 03-11-2024 11:41-0500 Body weight 86.7 kg Stas Garcia APRN.MOTOR GENERATOR SET OPERATOR Work Phone: [facility] 03-11-2024 11:41-0500 Diastolic blood pressure 80 mm[Hg] Stas Garcia APRN.MOTOR GENERATOR SET OPERATOR Work Phone: [facility] 03-11-2024 11:41-0500 Heart rate 88 /min Stas Garcia APRN.MOTOR GENERATOR SET OPERATOR Work Phone: [facility] 03-11-2024 11:41-0500 Respiratory rate 16 /min Stasfrances Garcia FOOD MIXER ASSEMBLER.MOTOR GENERATOR SET OPERATOR Work Phone: [facility] 03-11-2024 11:41-0500 SaO2% (BldA) [Mass fraction] 97 % Stas Ball FOOD MIXER ASSEMBLER.MOTOR GENERATOR SET OPERATOR Work Phone: [facility] 03-11-2024 11:41-0500 Systolic blood pressure 132 mm[Hg] Stas Garcai FOOD MIXER ASSEMBLER.MOTOR GENERATOR SET OPERATOR Work Phone: [facility] 03-10-2024 15:20-0500 Body temperature 98.1 [degF] Krislyn Aberegg PA Work Phone: [facility] 03-10-2024 15:20-0500 Body weight 88.1 kg Krislyn Aberegg PA Work Phone: [facility] 03-10-2024 15:20-0500 Diastolic blood pressure 78 mm[Hg] Krislyn Aberegg PA Work Phone: [facility] 03-10-2024 15:20-0500 Heart rate 82 /min Krislyn Aberegg PA Work Phone: [facility] 03-10-2024 15:20-0500 Respiratory rate 16 /min Krislyn Aberegg PA Work Phone: [facility] 03-10-2024 15:20-0500 SaO2% (BldA) [Mass fraction] 97 % Krislyn Aberegg PA Work Phone: [facility] 03-10-2024 15:20-0500 Systolic blood pressure 124 mm[Hg] Krislyn Aberegg PA Work Phone: [facility] 05-20-2023 20:23-0400 Body temperature 96.6 [degF] Dr. Jessica Keller Work Phone: [facility] 05-20-2023 20:23-0400 Diastolic blood pressure 87 mm[Hg] Dr. Jessica Keller Work Phone: [facility] 05-20-2023 20:23-0400 Heart rate 74 /min Dr. Jessica Keller Work Phone: 2(401)[phone] [place] [address] 05-20-2023 20:23-0400 Respiratory rate 18 /min Dr. Jessica Keller Work Phone: 0(339)973-915030 [place] [address] 05-20-2023 20:23-0400 SaO2% (BldA) [Mass fraction] 99 % Dr. Jessica Keller Work Phone: 5(877)503-198930 [place] [address] 05-20-2023 20:23-0400 Systolic blood pressure 128 mm[Hg] Dr. Jessica Keller Work Phone: 8(027)665-829530 [place] [address] 05-20-2023 20:01-0400 Body height 162.[address] Jessica Keller Work Phone: 3(394)[phone] [place] [address] 05-20-2023 20:01-0400 Body mass index (BMI) [Ratio] 34 kg/m2 Dr. Jessica Keller Work Phone: 5(300)[phone] [place] [address] 05-20-2023 20:01-0400 Body weight 89.[address] Jessica Keller Work Phone: 8(558)[phone] [place] [address] 03-26-2023 14:55-0500 Body temperature 97.5 [degF] Dr. Jessica Keller Work Phone: 1(095)661-942830 [place] [address] 03-26-2023 14:55-0500 Diastolic blood pressure 83 mm[Hg] Dr. Jessica Keller Work Phone: 2(263)952-449530 [place] [address] 03-26-2023 14:55-0500 Heart rate 147 /min Dr. Jessica Keller Work Phone: 7(223)[phone] [place] [address] 03-26-2023 14:55-0500 Respiratory rate 16 /min Dr. Jessica Keller Work Phone: 9(880)[phone] [place] [address] 03-26-2023 14:55-0500 SaO2% (BldA) [Mass fraction] 100 % Dr. Jessica Keller Work Phone: 7(129)[phone] [place] [address] 03-26-2023 14:55-0500 Systolic blood pressure 119 mm[Hg] Dr. Jessica Keller Work Phone: [facility] 03-26-2023 12:24-0500 Body height 162.[address] Jessica Keller Work Phone: [facility] 03-26-2023 12:24-0500 Body mass index (BMI) [Ratio] 33.1 kg/m2 Dr. Jessica Keller Work Phone: [facility] 03-26-2023 12:24-0500 Body weight 87.[address] Jessica Keller Work Phone: [facility] 03-12-2023 14:28-0500 Body mass index (BMI) [Ratio] 34.3 kg/m2 Dr. Jessica Keller Work Phone: [facility] 03-12-2023 14:28-0500 Body weight 90.[address] Jessica Keller Work Phone: [facility] 04-10-2022 05:24-0500 Diastolic blood pressure 83 mm[Hg] [facility] 04-10-2022 05:24-0500 Heart rate 92 /min [facility] 04-10-2022 05:24-0500 Respiratory rate 18 /min [facility] 04-10-2022 05:24-0500 SaO2% (BldA) [Mass fraction] 92 % [facility] 04-10-2022 05:24-0500 Systolic blood pressure 127 mm[Hg] [facility] 04-10-2022 03:09-0500 Body height 162.56 cm [facility] 04-10-2022 03:09-0500 Body mass index (BMI) [Ratio] 36.1 kg/m2 [facility] 04-10-2022 03:09-0500 Body temperature 98.5 [degF] [facility] 04-10-2022 03:09-0500 Body weight 95.6 kg [facility] 02-12-2022 23:13-0500 Body height 162.56 cm [facility] Work Phone: 02-12-2022 23:13-0500 Body mass index (BMI) [Ratio] 37 kg/m2 [facility] 02-12-2022 23:13-0500 Body temperature 97.7 [degF] [facility] 02-12-2022 23:13-0500 Body weight 98 kg [facility] 02-12-2022 23:13-0500 Diastolic blood pressure 73 mm[Hg] [facility] 02-12-2022 23:13-0500 Heart rate 72 /min [facility] 02-12-2022 23:13-0500 Respiratory rate 16 /min [facility] 02-12-2022 23:13-0500 SaO2% (BldA) [Mass fraction] 96 % [facility] 02-12-2022 23:13-0500 Systolic blood pressure 121 mm[Hg] [facility] 01-03-2022 09:26-0500 Body height 162.56 cm [facility] Work Phone: 01-03-2022 09:26-0500 Body mass index (BMI) [Ratio] 35.1 kg/m2 [facility] 01-03-2022 09:26-0500 Body temperature 98.1 [degF] [facility] 01-03-2022 09:26-0500 Body weight 92.8 kg [facility] 01-03-2022 09:26-0500 Diastolic blood pressure 98 mm[Hg] [facility] 01-03-2022 09:26-0500 Heart rate 91 /min [facility] 01-03-2022 09:26-0500 Respiratory rate 16 /min [facility] 01-03-2022 09:26-0500 SaO2% (BldA) [Mass fraction] 96 % [facility] 01-03-2022 09:26-0500 Systolic blood pressure 134 mm[Hg] [facility] 08-29-2021 08:30-0400 Heart rate 85 /min [facility] Work Phone: 08-29-2021 08:30-0400 Respiratory rate 17 /min [facility] Work Phone: 08-29-2021 08:30-0400 SaO2% (BldA) [Mass fraction] 98 % [facility] Work Phone: 08-29-2021 07:22-0400 Body temperature 97.9 [degF] [facility] Work Phone: 08-29-2021 07:22-0400 Diastolic blood pressure 84 mm[Hg] [facility] Work Phone: 08-29-2021 07:22-0400 Systolic blood pressure 121 mm[Hg] [facility] Work Phone: 08-29-2021 07:20-0400 Body height 162.56 cm [facility] Work Phone: 08-29-2021 07:20-0400 Body mass index (BMI) [Ratio] 38.6 kg/m2 [facility] Work Phone: 08-29-2021 07:20-0400 Body weight 102.05 kg [facility] Work Phone: 07-12-2021 20:11-0400 Diastolic blood pressure 90 mm[Hg] [facility] Work Phone: 07-12-2021 20:11-0400 Heart rate 112 /min [facility] Work Phone: 07-12-2021 20:11-0400 Respiratory rate 18 /min [facility] Work Phone: 07-12-2021 20:11-0400 SaO2% (BldA) [Mass fraction] 98 % [facility] Work Phone: 07-12-2021 20:11-0400 Systolic blood pressure 120 mm[Hg] [facility] Work Phone: 07-12-2021 18:50-0400 Body height 162.56 cm [facility] Work Phone: 07-12-2021 18:50-0400 Body mass index (BMI) [Ratio] 39.4 kg/m2 [facility] Work Phone: 07-12-2021 18:50-0400 Body temperature 96.7 [degF] [facility] Work Phone: 07-12-2021 18:50-0400 Body weight 104.32 kg [facility] Work Phone: 05-08-2021 18:47-0400 SaO2% (BldA) [Mass fraction] 99 % [facility] Work Phone: 05-08-2021 17:49-0400 Body height 162.56 cm [facility] Work Phone: 05-08-2021 17:49-0400 Body mass index (BMI) [Ratio] 37.7 kg/m2 [facility] Work Phone: 05-08-2021 17:49-0400 Body temperature 98.1 [degF] [facility] Work Phone: 05-08-2021 17:49-0400 Body weight 99.7 kg [facility] Work Phone: 05-08-2021 17:49-0400 Diastolic blood pressure 66 mm[Hg] [facility] Work Phone: 05-08-2021 17:49-0400 Heart rate 97 /min [facility] Work Phone: 05-08-2021 17:49-0400 Respiratory rate 97 /min [facility] Work Phone: 05-08-2021 17:49-0400 Systolic blood pressure 104 mm[Hg] [facility] Work Phone: Encounters Encounter Date Encounter Type Care Provider Facility Start: 11-29-2024 ambulatory Ronald Zurita y:[facility] Start: 11-13-2024 End: 11-13-2024 ambulatory SHILPI TAVARES Facility:[facility] Start: 03-11-2024 End: 03-11-2024 Office outpatient visit 25 minutes Stas Jose CATALAN Work Phone: [facility] Comment on above: Acute cough (Primary Dx) Start: 03-11-2024 End: 03-11-2024 ambulatory SHILPI CLSHIN Facility:[facility] Start: 03-10-2024 End: 03-10-2024 Patient encounter procedure Jorden MAR Work Phone: [facility] Comment on above: Rash (Primary Dx) Start: 03-10-2024 End: 03-10-2024 ambulatory SHILPI TAVARES Facility:[facility] Start: 01-16-2024 End: 01-16-2024 ambulatory Antonella Morris [facility] Facility:[facility] Start: 05-20-2023 End: 05-20-2023 Emergency department patient visit Dr. Jessica Keller Work Phone: [facility]-Emergency Department Work Phone: Start: 03-26-2023 End: 03-26-2023 Emergency department patient visit Dr. Jessica Keller Work Phone: [facility]Emergency Department Work Phone: Start: 03-12-2023 End: 03-12-[address] Jessica Keller Work Phone: [facility] Work Phone: Start: 02-08-2023 End: 02-08-[address] Jessica Keller Work Phone: [facility] Work Phone: Start: 02-08-2023 End: 02-08-[address] Jessica Keller Work Phone: [facility] Work Phone: Start: 01-23-2023 Non-patient / Non-visit Dr. Goldie Keller Work Phone: [facility] Start: 01-23-2023 End: 01-23-[address] Jessica Keller Work Phone: [facility]-Pulmonary Services/Neurology Work Phone: Start: 01-12-2023 End: 01-12-2023 ambulatory [facility] Work Phone: Start: 01-12-2023 End: 01-12-2023 Patient encounter procedure [facility]-Outpatient Breast Imaging Work Phone: Start: 01-01-2023 End: 01-01-2023 ambulatory [facility] Work Phone: Start: 01-01-2023 End: 01-01-2023 Patient encounter procedure [facility] Start: 04-10-2022 End: 04-10-2022 Emergency department patient visit [facility]Emergency Department Start: 02-14-2022 End: 02-14-2022 ambulatory [facility] Work Phone: Start: 02-14-2022 End: 02-14-2022 Patient encounter procedure [facility]-Cat Scan, [facility] Start: 02-12-2022 End: 02-13-2022 Emergency department patient visit [facility]Emergency Department Start: 01-03-2022 End: 01-03-2022 Emergency department patient visit [facility]Emergency Department Start: 12-21-2021 End: 12-21-2021 ambulatory [facility] Work Phone: Start: 12-21-2021 End: 12-21-2021 Patient encounter procedure [facility]Ultrasound, [facility] Start: 12-07-2021 End: 12-07-2021 ambulatory [facility] Work Phone: Start: 12-07-2021 End: 12-07-2021 Patient encounter procedure [facility]Outpatient Breast Imaging Start: 08-29-2021 End: 08-29-2021 Emergency department patient visit [facility]Emergency Department Start: 07-12-2021 End: 07-12-2021 Emergency department patient visit [facility]Emergency Department Start: 05-24-2021 End: 05-24-2021 Patient encounter procedure [facility] Start: 05-08-2021 End: 05-08-2021 Emergency department patient visit [facility]Emergency Department Procedures Date Procedure Procedure Detail Performing Clinician Start: 02-08-[address] Jessica Keller Work Phone: Start: 01-12-2023 Ultrasonography of breast Start: 01-12-2023 Bilateral mammography Start: 01-12-2023 Ultrasonography of breast Start: 04-10-2022 Radiography of ankle Start: 04-10-2022 X-ray of both feet Start: 02-14-2022 CT of pelvis without contrast Start: 02-12-2022 X-ray of both feet Start: 12-21-2021 Transvaginal echography Start: 12-07-2021 Screening mammography Start: 08-29-2021 Plain chest X-ray SARS-CoV-2 & FLU Ant igen (Rapid) Plan of Treatment Date Care Activity Detail Author Start: 10-28-2023 Covid-19 Vaccine ( season) Covid-19 Vaccine ( season) [facility] Start: 10-28-2023 Influenza vaccination Influenza Vacc ine (#1) [facility] Start: 05-20-2023 [facility] Start: 03-26-2023 [facility] Start: 01-12-2023 Digital breast tomosynthesis bilateral BREAST TOMOSYNTHESIS BI [facility] Start: 02-13-2022 Radiography of ankle Ankle min 3 Vie ws [facility] Work Phone: Start: 08-29-2021 [facility] Work Phone: Start: 2019 Screening for malign ant neoplasm of breast Mammogram Screening [facility] Start: 04-26-2000 Screening for malign ant neoplasm of cervix Cervical Cancer Screening [facility] Start: 04-26-1998 Hepatitis B Vaccine (1 of 3 - 19+ 3-dose series) Hepatitis B Vaccine (1 of 3 - 19+ 3-dose series) [facility] Start: 04-26-1998 Urine microalbumin profile DTaP,Tdap,Td Vaccine (1 - Tdap) [facility] Start: 04-26-1997 Anxiety Screening Anxiety Screening [facility] Start: 04-26-1997 Depression Screening Depression Scre brian [facility] Start: 04-26-1997 Hepatitis C screening Hepatitis C Sc oswaldo [facility] Start: 04-26-1997 HIV screening HIV Screening [facility] COVID & INFLUENZA A/ B & RSV PCR, ROUTINE COVID & INFLUENZA A/B & RSV PCR, ROUTINE Microbiology Routine Acute cough 03/11/2024 12:06 PM EST [facility] Patient Education [facility] Work Phone: Patient referral [facility] Work Phone: End: 04-10-2025 XR Chest PA and Lateral XR CHEST 2V FRONTAL/LAT Radiology STAT Acute cough 1 Occurrences starting 03/11/2024 until 04/10/2025 [facility] Work Phone: Comment on above: 1 Occurrences starti ng 03/11/2024 until 04/10/2025 Immunizations Immunization Date Immunization Notes Care Provider Bibi cabrales 11-16-2022 influenza virus vacc ine, unspecified formulation Jorden MAR Work Phone: [facility] Payers Date Payer Category Payer Self-pay [id number] 2022 Medicaid [place] [employer] [place] [employer] [id number] 2022-Present [phone] [address] [place] [address] Medicaid [id number] 2022 Unknown [id number] Unknown [id number] Unknown [id number] Social History Date Type Detail Facility [facility] Work Phone: Start: 05-08-2021 End: 08-26-2022 Tobacco smoking status NHIS Unknown if ever smoked [facility] Start: 09-29-2019 Roommate [facility] Start: 1980 Sex Assigned At Female W [facility] Start: 08-26-2022 Tobacco use and exposure Smokeless tobacco non-user [facility] Start: 03-10-2024 End: 03-11-2024 Alcoholic beverage intake Lifetime non-drinker (finding) [facility] Start: 01-29-2023 End: 03-10-2024 History of Social function [facility] Start: 01-29-2023 End: 03-10-2024 Tobacco use panel [facility] National Score (1-100), lower number is lower risk 91 [facility] Start: 1980 Sex assigned at Not on file [facility] NEGATED: Highlighted row [facility] Mental Status Date Assessment Result Facility 05-20-2023 Cognitive function Level Of Cons ciousness Awake;Alert;Appropriate;Follow s Commands [facility] Work Phone: Clinical Notes 03-26-2023 to 11-13-2024 Patient Stas Ahn APRN.LOREN - 03/11/2024 11:52 AM Jorden Robles PA - 03/10/2024 3:26 PM EST Note Date & Type Note Facility 11-13-2024 Note HNO ID: [id number] Author: SHILPI TAVARES PA-C Service: ? Author Type: Physician Sanitizer Type: Progress Notes Filed: 11/13/2024 18:31 Note Text: [facility] Francisca Castillo is a 44 year old female. No chief complaint on file. Patient is a 44-year-old female who complains of ongoing and worsening congestion, sinus pressure, ear fullness and decreased hearing acuity that she has been experiencing for the past 1-1/2 weeks. Patient reports mild throat irritation and states she has developed only a slight cough. Patient reports denies fever, chills or myalgia. Patient is currently taking no [id number] medications for treatment of her symptoms. Review of Systems HENT: Positive for congestion, ear pain, hearing loss, postnasal drip and sinus pressure. All other systems reviewed and are negative. Objective LMP (LMP Unknown) Physical Exam Vitals and nursing note reviewed. Constitutional: Appearance: Normal appearance. She is normal weight. HENT: Head: Normocephalic and atraumatic. Right Ear: Tympanic membrane, ear canal and external ear normal. Left Ear: Tympanic membrane, ear canal and external ear normal. Nose: Nose normal. Mouth/Throat: Mouth: Mucous membranes are moist. Pharynx: Oropharynx is clear. Eyes: Extraocular Movements: Extraocular movements intact. Conjunctiva/sclera: Conjunctivae normal. Pupils: Pupils are equal, round, and reactive to light. Cardiovascular: Rate and Rhythm: Normal rate and regular rhythm. Pulses: Normal pulses. Heart sounds: Normal heart sounds. Pulmonary: Effort: Pulmonary effort is normal. Breath sounds: Normal breath sounds. Musculoskeletal: Cervical back: Normal range of motion and neck supple. Skin: General: Skin is warm and dry. Capillary Refill: Capillary refill takes less than 2 seconds. Neurological: General: No focal deficit present. Mental Status: She is alert and oriented to person, place, and time. Psychiatric: Mood and Affect: Mood normal. Behavior: Behavior normal. Thought Content: Thought content normal. Judgment: Judgment normal. MDM Physical exam findings as noted above. Patient was provided with prescriptions for Augmentin 875-125 mg and Sudafed 60 mg. Supportive care instructions were discussed and the patient verbalizes good understanding of same. CLINICAL IMPRESSION: Acute Sinusitis ASSESSMENT/PLAN: 1. Acute non-recurrent sinusitis, unspecified location - ICD9: 461.9, ICD10: J01.90 - AMOXICILLIN 875 MG-POTASSIUM CLAVULANATE 125 MG TABLET - PSEUDOEPHEDRINE [address] [facility] Risk of Complications, Morbidity, and/or Mortality Presenting problems: low Diagnostic procedures: low Management options: meaghan Tavares PA-C [facility] 03-11-2024 Instructions Stas Garcia APRN.[facility] - 03/11/2024 11:58 AM EST UPPER RESPIRATORY INFECTIONS Most cases are caused by viruses and most cases are mild, temporary, and harmless. Symptoms can last 2 to 3 weeks and can include: nasal congestion, sore throat, coughing, muscles aches, headaches, nausea, diarrhea, fatigue and fever. Rhinovirus, RSV, Covid, Influenza A and B, Parainfluenza are just a few COMMON respiratory viruses that cause sinus symptoms and cough. Antibiotics do NOT treat viruses. Taking 1 round of antibiotics can destroy your gut normal milka (good bacteria) for up to 6 months. This can affect your weight, skin, digestion, mental health and immune system. 1. Drink plenty of fluids. 2. Get lots of rest. 3. Avoid dehydrants such as caffeine and alcohol. 4. Nasal saline is an effective decongestant and be used frequently throughout the day. 5. To loosen phlegm and help coughing, drink plenty of fluids and using a humidifier. 6. For sore throats, it is ok to use cough drops, throat sprays, or gargling warm salt water. 7. Always cover your mouth when you cough or sneeze, and wash your hands frequently. Avoid crowded areas like shopping centers, movies while you are sick so you don't grape picker a different virus, or infect others. 8. Avoid exposure to cigarettes or fumes. 9. Avoid irritants such as potpourri, dust, perfumes, scented candles and scented sprays 10. Air conditioning is an effective allergen and irritant avoidance strategy in the spring, summer and fall. 11. Honey is an effective cough suppressant. Try one tsp 3-4 times per day. 12. Mucinex every 12 hours with a full 10-12 ounces of water 13. Afrin for 3-4 days for congestion and post nasal drainage is both safe and effective documented in this encounter [facility] 03-11-2024 Note HNO ID: [id number] Author: STAS GARCIA APRN.[employer] GENER[employer] SET OPERATOR Service: ? Author Type: Nurse Practitioner Type: Progress Notes Filed: 03/11/2024 12:01 Note Text: This note was created using ClickGanicriter. Subjective Judith Castillo is a 43 year old female. HPI by patient: Judith is a 3 year old presenting to the office with the complaint of cough and MITCHELL. Was seen yesterday for rash that she had for 3 days and mentioned the cough and MITCHELL which started 2 days ago. Now wants seen for cough and has had to hold her head when she coughs RUnny nose, PND and has been sweating Started approximately 2 days ago. Denies any other concerns Covid Immunization Dates Overdue - Covid-19 Vaccine ( season) Never done No completion, postpone, frequency change, or communication history exists for this topic. Sick contacts: yes friend is also sick Smoking history/second hand smoke: yes OTC nothing No antibiotic use in the last 60 days. ALLERGIES No Known Allergies No family history on file. Social History Tobacco Use Smoking status: Unknown Smokeless tobacco: Never Alcohol use: Never Drug use: Yes Types: Marijuana Comment: medical card Review of Systems Constitutional: Negative for chills and fever. HENT: Positive for congestion, postnasal drip and rhinorrhea. Negative for ear pain and sore throat. Respiratory: Positive for cough and shortness of breath. Negative for chest tightness and wheezing. Cardiovascular: Negative for chest pain. Allergic/Immunologic: Negative for immunocompromised state. Hematological: Negative for adenopathy. Objective BP 132/80 Pulse 88 Temp 36.7 ?C (98 ?F) Resp 16 Wt 86.7 kg (191 lb 2.2 oz) LMP (LMP Unknown) SpO2 97% Physical Exam Vitals and nursing note reviewed. HENT: Right Ear: Tympanic membrane and ear canal normal. Left Ear: Tympanic membrane and ear canal normal. Nose: Congestion and rhinorrhea present. Mouth/Throat: Pharynx: Uvula midline. No oropharyngeal exudate or posterior oropharyngeal erythema. Cardiovascular: Rate and Rhythm: Normal rate and regular rhythm. Heart sounds: Normal heart sounds. Pulmonary: Effort: Pulmonary effort is normal. No respiratory distress. Breath sounds: No stridor. Wheezing (In RLL and LLL) present. No rhonchi or rales. Chest: Chest wall: No tenderness. Lymphadenopathy: Cervical: No cervical adenopathy. Skin: General: Skin is warm and dry. Neurological: Mental Status: She is alert and oriented to person, place, and time. Assessment and Plan ASSESSMENT/PLAN: 1. Acute cough - ICD9: 786.2, ICD10: R05.1 - COVID AND INFLUENZA A/B AND RSV PCR, ROUTINE - PROMETHAZINE-DM 6.25 MG-15 MG/5 ML ORAL SYRUP - XR CHEST 2V FRONTAL/LAT - OXYMETAZOLINE 0.05 % NASAL SPRAY Stas Garcia APRN.MOTOR GENERATOR SET OPERATOR Medical Decision Making: Problems: Moderate: New problem with uncertain prognosis Data: Unique test(s) ordered: 3+ Risk: Moderate: Drug management Medical Decision Making Level: 4 - Moderate [facility] 03-11-2024 History of Present illness Narrative This note was created using ClickGanicriter. Subjective Judith Castillo is a 43 year old female. HPI by patient: Judith is a 3 year old presenting to the office with the complaint of cough and MITCHELL. Was seen yesterday for rash that she had for 3 days and mentioned the cough and MITCHELL which started 2 days ago. Now wants seen for cough and has had to hold her head when she coughs RUnny nose, PND and has been sweating Started approximately 2 days ago. Denies any other concerns Covid Immunization Dates Overdue - Covid-19 Vaccine ( season) Never done No completion, postpone, frequency change, or communication history exists for this topic. Sick contacts: yes friend is also sick Smoking history/second hand smoke: yes OTC nothing No antibiotic use in the last 60 days. ALLERGIES No Known Allergies No family history on file. Social History Tobacco Use Smoking status: Unknown Smokeless tobacco: Never Alcohol use: Never Drug use: Yes Types: Marijuana Comment: medical card Review of Systems Constitutional: Negative for chills and fever. HENT: Positive for congestion, postnasal drip and rhinorrhea. Negative for ear pain and sore throat. Respiratory: Positive for cough and shortness of breath. Negative for chest tightness and wheezing. Cardiovascular: Negative for chest pain. Allergic/Immunologic: Negative for immunocompromised state. Hematological: Negative for adenopathy. Objective BP 132/80 Pulse 88 Temp 36.7 C (98 F) Resp 16 Wt 86.7 kg (191 lb 2.2 oz) LMP (LMP Unknown) SpO2 97% Physical Exam Vitals and nursing note reviewed. HENT: Right Ear: Tympanic membrane and ear canal normal. Left Ear: Tympanic membrane and ear canal normal. Nose: Congestion and rhinorrhea present. Mouth/Throat: Pharynx: Uvula midline. No oropharyngeal exudate or posterior oropharyngeal erythema. Cardiovascular: Rate and Rhythm: Normal rate and regular rhythm. Heart sounds: Normal heart sounds. Pulmonary: Effort: Pulmonary effort is normal. No respiratory distress. Breath sounds: No stridor. Wheezing (In RLL and LLL) present. No rhonchi or rales. Chest: Chest wall: No tenderness. Lymphadenopathy: Cervical: No cervical adenopathy. Skin: General: Skin is warm and dry. Neurological: Mental Status: She is alert and oriented to person, place, and time. Assessment and Plan ASSESSMENT/PLAN: 1. Acute cough - ICD9: 786.2, ICD10: R05.1 - COVID & INFLUENZA A/B & RSV PCR, ROUTINE - PROMETHAZINE-DM 6.25 MG-15 MG/5 ML ORAL SYRUP - XR CHEST 2V FRONTAL/LAT - OXYMETAZOLINE 0.05 % NASAL SPRAY Stas Garcia APRN.CNP Medical Decision Making: Problems: Moderate: New problem with uncertain prognosis Data: Unique test(s) ordered: 3+ Risk: Moderate: Drug management Medical Decision Making Level: 4 - Moderate documented in this encounter [facility] 03-10-2024 Note HNO ID: [id number] Author: JORDEN GARCIA PA Service: ? Author Type: Physician Sanitizer Type: Progress Notes Filed: 03/10/2024 15:28 Note Text: This note was created using ClickGanicriter. Subjective Judith Castillo is a 43 year old female. HPI 43-year-old female presents for rash. Patient states she noticed rash a few days ago. It is on the back of her neck, arms, face. She states it is very itchy. She denies any fevers. She has had some chills and cough recently. Nobody else at home has similar rash. No new lotions, detergents, body washes, medications. She has taken Benadryl which did help with the itching. No other complaint. No past medical history on file. No past surgical history on file. ALLERGIES Patient has no known allergies. MEDICATIONS buPROPion XL (WELLBUTRIN XL) 150 mg 24 hr tablet TAKE 1 TABLET BY MOUTH ONCE DAILY for 1 week, then increase to 2 tablets once daily OLANZapine (ZYPREXA) 2.5 mg tablet take 1/2 tab by mouth at bedtime albuterol HFA (PROVENTIL HFA, VENTOLIN HFA) 90 mcg/actuation inhaler INHALE 2 PUFFS BY MOUTH and into the lungs 4-6 hours as needed for shortness OF breath/cough predniSONE (DELTASONE) 10 mg tablet Take 4 tabs daily for 3 days, then 2 tabs daily for 3 days, then 1 tab daily for 3 days with food. ibuprofen (MOTRIN) 600 mg tablet Take 1 tablet by mouth every 8 hours as needed for pain. (Patient not taking: Reported on 03/10/2024) No family history on file. Social History Tobacco Use Smoking status: Unknown Smokeless tobacco: Never Substance Use Topics Alcohol use: Never Drug use: Yes Types: Marijuana Comment: medical card Review of Systems Constitutional: Negative for chills and fever. HENT: Negative for congestion, ear pain and sore throat. Respiratory: Negative for cough and shortness of breath. Cardiovascular: Negative for chest pain. Gastrointestinal: Negative for diarrhea and vomiting. Skin: Positive for rash. Objective BP 124/78 Pulse 82 Temp 36.7 ?C (98.1 ?F) Resp 16 Wt 88.1 kg (194 lb 3.6 oz) LMP (LMP Unknown) SpO2 97% Physical Exam Vitals and nursing note reviewed. Constitutional: General: She is not in acute distress. Appearance: Normal appearance. She is not toxic-appearing. HENT: Nose: Nose normal. Mouth/Throat: Mouth: Mucous membranes are moist. Eyes: Conjunctiva/sclera: Conjunctivae normal. Cardiovascular: Rate and Rhythm: Normal rate and regular rhythm. Pulmonary: Effort: Pulmonary effort is normal. Breath sounds: Normal breath sounds. Skin: General: Skin is warm and dry. Findings: Rash present. Comments: Slightly raised erythematous bumps to back of neck, arms. No vesicular lesions. No lymphatic streaking. No abscess or fluctuance. Neurological: Mental Status: She is alert. Assessment and Plan ASSESSMENT/PLAN: 1. Rash - ICD9: 782.1, ICD10: R21 -Appears consistent with contact dermatitis. -Rx for prednisone taper -May continue Benadryl -Follow-up if no improvement in symptoms Diagnosis and treatment plan were discussed and questions were answered to the patient's satisfaction. Pt acknowledged understanding of concepts and follow up plan. Specific signs and symptoms that would indicate the need for higher level of care were discussed in detail warranting prompt ER evaluation. ZAID Butcher [facility] 03-10-2024 History of Present illness Narrative Images from the original note were not included. This note was created using [employer]. Subjective Judith Castillo is a 43 year old female. HPI 43-year-old female presents for rash. Patient states she noticed rash a few days ago. It is on the back of her neck, arms, face. She states it is very itchy. She denies any fevers. She has had some chills and cough recently. Nobody else at home has similar rash. No new lotions, detergents, body washes, medications. She has taken Benadryl which did help with the itching. No other complaint. No past medical history on file. No past surgical history on file. ALLERGIES Patient has no known allergies. MEDICATIONS buPROPion XL (WELLBUTRIN XL) 150 mg 24 hr tablet TAKE 1 TABLET BY MOUTH ONCE DAILY for 1 week, then increase to 2 tablets once daily OLANZapine (ZYPREXA) 2.5 mg tablet take 1/2 tab by mouth at bedtime albuterol HFA (PROVENTIL HFA, VENTOLIN HFA) 90 mcg/actuation inhaler INHALE 2 PUFFS BY MOUTH and into the lungs 4-6 hours as needed for shortness OF breath/cough predniSONE (DELTASONE) 10 mg tablet Take 4 tabs daily for 3 days, then 2 tabs daily for 3 days, then 1 tab daily for 3 days with food. ibuprofen (MOTRIN) 600 mg tablet Take 1 tablet by mouth every 8 hours as needed for pain. (Patient not taking: Reported on 03/10/2024) No family history on file. Social History Tobacco Use Smoking status: Unknown Smokeless tobacco: Never Substance Use Topics Alcohol use: Never Drug use: Yes Types: Marijuana Comment: medical card Review of Systems Constitutional: Negative for chills and fever. HENT: Negative for congestion, ear pain and sore throat. Respiratory: Negative for cough and shortness of breath. Cardiovascular: Negative for chest pain. Gastrointestinal: Negative for diarrhea and vomiting. Skin: Positive for rash. Objective BP 124/78 Pulse 82 Temp 36.7 C (98.1 F) Resp 16 Wt 88.1 kg (194 lb 3.6 oz) LMP (LMP Unknown) SpO2 97% Physical Exam Vitals and nursing note reviewed. Constitutional: General: She is not in acute distress. Appearance: Normal appearance. She is not toxic-appearing. HENT: Nose: Nose normal. Mouth/Throat: Mouth: Mucous membranes are moist. Eyes: Conjunctiva/sclera: Conjunctivae normal. Cardiovascular: Rate and Rhythm: Normal rate and regular rhythm. Pulmonary: Effort: Pulmonary effort is normal. Breath sounds: Normal breath sounds. Skin: General: Skin is warm and dry. Findings: Rash present. Comments: Slightly raised erythematous bumps to back of neck, arms. No vesicular lesions. No lymphatic streaking. No abscess or fluctuance. Neurological: Mental Status: She is alert. Assessment and Plan ASSESSMENT/PLAN: 1. Rash - ICD9: 782.1, ICD10: R21 -Appears consistent with contact dermatitis. -Rx for prednisone taper -May continue Benadryl -Follow-up if no improvement in symptoms Diagnosis and treatment plan were discussed and questions were answered to the patient's satisfaction. Pt acknowledged understanding of concepts and follow up plan. Specific signs and symptoms that would indicate the need for higher level of care were discussed in detail warranting prompt ER evaluation. ZAID Butcher documented in this encounter [facility] 05-20-2023 Discharge summary Note Date/Time May 20, 2023 8:27pm [facility] Medical Records Department [address] [place] [address] Emergency Department Summary 05/20/23 MR#: [id number] Acct: [id number] Name: MELANYJUDITH COVINGTONIA Rep #:[id number] : 1980 43 From: Pete Forbes DO PCP: Dr. Jessica Keller Status:REG ER Location: ED HPI HPI - URI History of Present Illness Chief Complaint: Cold Sx Narrative Narrative: 43-year-old female presenting with viral symptoms. She has had subjective fevers, chills, body aches, headache. She also complains of cough which is dry. States her lungs burning when she coughs. She vomited a couple times today butstates she just ate a bag of [employer] and this stayed down. She has been able to hold down some fluids as well. Patient states that she does have a friend who was sick. She is concerned she might have come down with something. ROS ROS ED Constitutional Constitutional ED: Reports chills, fever(s) and subjective; Denies sweats Eyes Eyes: Denies blurry vision or change in vision ENT ENT ED: Denies ear pain or sore throat Cardiovascular Cardiovascular: Denies chest pain, palpitations or racing heartbeat Respiratory/Chest Respiratory/Chest: Reports cough; Denies dyspnea or sputum Gastrointestinal Gastrointestinal: Reports nausea and vomiting; Denies abdominal pain, constipation or diarrhea Genitourinary Genitourinary ED: Denies dysuria, hematuria or urinary frequency Musculoskeletal Musculoskeletal: Denies arthralgias, myalgias or neck pain Integumentary Denies abscess, Abrasions or rash Neurologic Neurologic: Reports headache(s); Denies paresthesias or weakness Psychiatric Psychiatric: Denies anxiety, depression, suicidal ideation or suicidal thoughts Endocrine Endocrinology: Denies polydipsia or polyuria PFSH PFSH Medical History Anxiety Hx of hepatitis C Home Medications benzonatate 200 mg capsule 200 mg PO TID PRN cough #20 caps 05/20/23 [Rx Last Taken Unknown] ondansetron 4 mg disintegrating tablet 4 mg PO Q8H PRN PRN Nausea #20 tabs 05/20/23 [Rx Last Taken Unknown] Allergy/AdvReac Type Severity Reaction Status Date / Time No Known Allergies Allergy Verified 05/20/23 20:00 Surgical History H/O wrist surgery Social History household members: none Smoking Status: Current every day smoker tobacco type: cigarettes alcohol intake: current alcohol intake frequency: holidays/special occasions only EXAM Physical Exam Const Vital Signs: 05/20/23 20:01 05/20/23 20:02 05/20/23 20:23 Temperature 98.1 F 98.1 F Temperature Source Temporal Temporal Pulse Rate 94 94 Respiratory Rate 20 H 20 H Respiratory Effort Normal Respiratory Pattern Normal Blood Pressure 135/81 H 135/81 H Blood Pressure Mean 99 99 Pulse Ox 98 98 Positive well nourished General Appearance ED: NAD; Negative for pallor HEENT Reports moist mucous membranes normocephalic Eyes PERRL Neck no lymphadenopathy Resp normal respiratory effort and clear to auscultation bilaterally Auscultation: Negative for rales, rhonchi or wheezes Cardio Rate: regular rate Rhythm: regular rhythm GI non-tender Neuro oriented x3 and CN's II-XII intact bilaterally Sensorium / Orientation: alert Motor Exam: strength 5/5 throughout Psych mental status grossly normal Skin General Skin Exam: Negative for jaundice or pallor MDM MDM MDM Narrative Medical decision making narrative: Patient presenting with viral symptoms. She has had these for 3 days and she isoutside the treatment window for influenza which is high on the list on the differential. Possible she could have COVID as well. She does not specificallyrequest viral testing but does request medications. She will be given Zofran for nausea and Tessalon Perles for cough. She request a work note as she supposed to be at work tomorrow and give her 3 days off. Counseled her she willbe sick for 3 to 5 days at least and possibly up to 7. Counseled to drink plenty of fluids. Impression: 1. Viral syndrome 2. Nausea/vomiting Lab Data Attestation: I reviewed the patient's lab results. Discharge Plan Triage Chief Complaint: Cold Sx ED Provider: Pete Forbes Dx/Rx/DC Orders Instructions: ED Influenza (Adult) Prescriptions: New ondansetron 4 mg tablet,disintegrating 4 mg PO Q8H PRN PRN (Reason: Nausea) Qty: 20 0RF benzonatate 200 mg capsule 200 mg PO TID PRN (Reason: cough) Qty: 20 0RF Stand Alone Forms: ED Work / School Excuse Primary Care Provider: Jessica Keller Referrals: Jessica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
--- NOTE | 2024-11-29 09:15 | MRI_ITS ---
PROCEDURE: LOWER EXT/NO JT/W/O 11/29/2024 MRI left foot without contrast REASON FOR EXAM: PAIN Lump under left foot. TECHNIQUE: Procedure Code: [id number] Modality: MR Procedure: LOWER EXT/NO JT/W/O Multiplanar and multisequence images were obtained without IV contrast administration. COMPARISON: COMPARISON : FINDINGS: Of note, the toes are incompletely imaged on this study, limiting evaluation. No acute fracture or dislocation. Multiple focal areas of marrow edema and degenerative subchondral cysts are noted within the bones of the midfoot and within the talus. The Achilles tendon is intact and unremarkable. The plantar fascia appears intact, and there is a questionable 3 mm nodular focus along the plantar aspect of the plantar fascia (series 12 image 18), which could represent a small fibrous nodule. There is mild adjacent soft tissue edema. Otherwise the plantar fascia appears unremarkable. Mild fluid signal is noted adjacent to the peroneus brevis and longus tendons, and the posterior tibialis and posterior digitorum longus tendons, however this is only appreciated on the sagittal STIR images. Lack of coronal and axial STIR images limits evaluation. These findings may represent mild tenosynovitis. The anterior and posterior talofibular ligaments, and the anterior and posterior tibiofibular ligaments appear intact the deltoid ligament appears intact and unremarkable. Mild edema signal is noted within the sinus tarsi. MRI/Lower Ext/No Jt/w/o IMPRESSION: 1. Degenerative marrow edema and degenerative subchondral cysts within the bon es of the midfoot and the talus. 2. Questionable 3 mm nodular focus along the plantar aspect of the plantar fas maria elena could represent a small fibrous nodule. Mild adjacent soft tissue edema. 3. Limited evaluation demonstrates mild fluid signal adjacent to the peroneus brevis and longus tendons, and the posterior tibialis and posterior digitorum longus tendons, which may represent mild tenos ynovitis. 4. Mild edema signal within the sinus tarsi. Reading Location: [id number]
== END | disposition home or self-care (01) ==
LOC: MRI 08:40
PROVIDERS: PCP Family Medicine; Referring Provider Podiatrist; Visit Provider Podiatrist
DX: M79.672 Pain in left foot (principal)
CPT/HCPCS: 73718